=== PATIENT | female | born 1940 | race Caucasian/White ===

== ENCOUNTER 2016-08-07 09:31 | Inpatient (IN) | payer OTHER ==
[~2016-08-07] VITALS: Ht 154.9 cm; Wt 53.1 kg
--- NOTE | 2016-08-07 09:42 | ED DYSPNEA/ASTHMA COMPLAINT ---
History of Present Illness General Chief Complaint: Dyspnea (COPD, CHF, Other) Stated Complaint: SOB Source: patient, family Exam Limitations: no limitations Vital Signs & Intake/Output Vital Signs & Intake/Output Vital Signs Date Time Temp Pulse Resp B/P Pulse O2 O2 Flow FiO2 Ox Delivery Rate 08/07 1011 95 08/07 0944 95 Room Air 08/07 0936 96.7 111 28 182/84 93 Room Air Allergies Coded Allergies: No Known Drug Allergies (08/07/16) Triage Note: C/O SOB X X 4 DAYS, WITH PRODUCTIVE COUGH, (CLEAR). Triage Nurses Notes Reviewed? yes HPI: Patient presents with worsening shortness of breath, productive cough and dyspnea on exertion escalating over the past 4 days. Patient states she is coughing up white sputum. Positive chills but no fevers. Positive anorexia but no nausea or vomiting. No constipation or diarrhea. Patient does have COPD but she continues to smoke. He uses oxygen when she feels she needs it. Patient has been hospitalized for COPD in the past but was never been intubated or required going on BiPAP. Patient also states that over the past 2 days she has been having exertional chest heaviness. The heaviness is substernal. There is no radiation. At its worst is 7 out of 10. The heaviness is resolved with rest. Patient denies any orthopnea. Dr. Torres had recently started patient on a Medrol Dosepak however her symptoms continue to worsen. Past History Travel History Traveled to [place] past 21 day No Medical History Any Pertinent Medical History? see below for history Cardiovascular: CAD Respiratory: COPD Surgical History Surgical History: PTCA WITH STENT Psychosocial History What is your primary language Danish Tobacco Use: Current Daily Use Daily Tobacco Use Amount/Type: =< 4 Cigarettes daily ETOH Use: occasional use Illicit Drug Use: denies illicit drug use Family History Hx Contributory? No Review of Systems Review of Systems Constitutional: Reports: see HPI, chills. EENTM: Reports: no symptoms. Respiratory: Reports: see HPI, cough, short of breath, sputum production, wheezing. Cardiovascular: Reports: see HPI, chest pain. GI: Reports: no symptoms. Genitourinary: Reports: no symptoms. Musculoskeletal: Reports: no symptoms. Skin: Reports: no symptoms. Neurological/Psychological: Reports: no symptoms. Hematologic/Endocrine: Reports: no symptoms. Immunologic/Allergic: Reports: no symptoms. All Other Systems: Reviewed and Negative Physical Exam Physical Exam General Appearance: well developed/nourished, alert, awake, moderate distress Head: atraumatic, normal appearance Eyes: Bilateral: PERRL, EOMI. Ears, Nose, Throat: normal pharynx, normal ENT inspection, hearing grossly normal Neck: normal inspection, supple, full range of motion, NO JVD Respiratory: decreased breath sounds, rhonchi, wheezing, respiratory distress Cardiovascular: regular rate/rhythm, normal peripheral pulses Gastrointestinal: normal bowel sounds, soft, non-tender Extremities: normal inspection, normal capillary refill, no edema Neurologic/Psych: no motor/sensory deficits, awake, alert, oriented x 3, normal mood/affect Skin: intact, normal color, warm/dry Lymphatic: no anterior cervical phyllis Core Measures ACS in differential dx? Yes ASA ordered for poss ACS? Yes-ordered Severe Sepsis Present: No Septic Shock Present: No Progress Differential Diagnosis: asthma, AMI, bronchitis, CHF, COPD, pulmonary embolism, pneumonia, pneumothorax Plan of Care: Orders Procedure Date/time Status ARTERIAL BLOOD GAS (GEN) 08/07 0954 Complete Telemetry/Ostomy Nurse 08/07 0954 Active BLOOD CULTURE 08/07 0954 Active TROPONIN LEVEL 08/07 0954 Complete COMPREHENSIVE METABOLIC PANEL 08/07 0954 Complete CBC WITHOUT DIFFERENTIAL 08/07 953 Complete EKG 08/07 0952 Active Laboratory Tests 08/07/16 1010: pH 7.42, pCO2 38, pO2 169 H, HCO3 24, ABG O2 Sat (Measured) 99.0, P-50 (Temp Corrected) YES, Carboxyhemoglobin 0.8 L, O2 Concentration % NEB TX, Temperature 96.7 L, O2 Delivery Method 6L, Phlebotomy Draw Site RIGHT RADIAL 08/07/16 0955: Anion Gap 11, Estimated GFR 54 L, BUN/Creatinine Ratio 24.0, Glucose 105 H, Calcium 10.3 H, Total Bilirubin 0.6, AST 31, ALT 30, Alkaline Phosphatase 139 H, Troponin I 0.03, Total Protein 7.5, Albumin 4.6, Globulin 2.9, Albumin/ Globulin Ratio 1.6, CBC w Diff MAN DIFF ORDERED, RBC 5.09, MCV 84.1, MCH 27.6, RDW 16.0 H, MPV 7.6, Gran % 92.7 H, Lymphocytes % 4.6 L, Monocytes % 2.7, Eosinophils % 0, Basophils % 0 L, Absolute Granulocytes 14.8 H, Absolute Lymphocytes 0.7 L, Absolute Monocytes 0.4, Absolute Eosinophils 0, Absolute Basophils 0, Platelet Estimate VERIFIED BY SMEAR, Anisocytosis 1+, Stomatocytes 1+, PUBS MCHC 32.9 L Microbiology 08/07 1001 BLOOD: Blood Culture - RECD 08/07 0955 BLOOD: Blood Culture - RECD Diagnostic Imaging: Viewed by Me: Radiology Read. Discussed w/RAD: Radiology Read. CXR Impression: PATIENT: EROS BARNEY PRESENT AGE: 76 PATIENT ACCOUNT NO: [id number] : 38 LOCATION: [facility] [place] ORDERING PHYSICIAN: LUCIANA BRISCOE MD SERVICE DATE: 08/07/16 EXAM TYPE: RAD - XRY-PORTABLE CHEST XRAY EXAMINATION: XR PORTABLE CHEST CLINICAL INFORMATION: Shortness of breath. COMPARISON: Chest 12/17/2006 TECHNIQUE: Portable AP view of the chest was obtained. FINDINGS: Both lungs are hyperinflated without acute pneumonic process. The heart size and pulmonary vascularity is normal. There is old unhealed medial clavicle fracture with overriding fragments. IMPRESSION: Hyperinflated lungs without any acute pneumonic process. DICTATED BY: NOAH HARRIS MD DATE/TIME DICTATED:08/07/161031 QUARRY SUPERVISOR OPEN PIT:VICKI DATE/TIME TRANSCRIBED:08/07/161031 CONFIDENTIAL, DO NOT COPY WITHOUT APPROPRIATE AUTHORIZATION. <Electronically signed in Other Vendor System> SIGNED BY: NOAH HARRIS MD 08/07/16 1039 Initial ED EKG: NSR, no ST T wave changes Rhythm Strip: normal sinus rhythm Comments: D/W DR. TORRES AND DR. VERMA. Departure Departure Disposition: STILL A PATIENT Condition: Guarded Clinical Impression Primary Impression: COPD exacerbation Secondary Impressions: ACS (acute coronary syndrome) Referrals: USAMA NEWMAN DO (PCP/Family) Departure Forms: Customer Survey General Discharge Information Admission Note Spoke With: SHELLY THORNE M.D Documentation of Exam: Documentation of any treatments & extenuating circumstances including Concerns Regarding Discharge (functional status, medication knowledge or non-compliance, living conditions, etc.) that warrant an admission rather than observation: [PT HAS A COPD EXACERBATION AND HAS FAILED OUTPATIENT TREATMENT. PT WILL NEED TELE MONITORING AND SERIAL ENZYMES. CARDIOLOGY CONSULTAION, PULMONARY CONSULTATION, O2, ,MAY REQUIRE BIPAP.] Critical Care Note Critical Care Note Critical Care Time: non-applicable
[2016-08-07 10:10] LABS: ABSOLUTE BASOPHIL COUNT 0 /CUMM (0.0-0.2); ABSOLUTE EOSINOPHIL COUNT 0 /CUMM (0.0-0.7); ABSOLUTE GRANULOCYTE CT 14.8 /CUMM (1.4-6.5); ABSOLUTE LYMPH COUNT 0.7 /CUMM (1.2-3.4); ABSOLUTE MONOCYTE COUNT 0.4 /CUMM (0.10-0.60); BASOPHIL % 0 % (0.0-2.0); EOSINOPHIL % 0 % (0-5); GRANULOCYTE % 92.7 % (42.2-75.2); HEMATOCRIT 42.8 % (37-47); MEAN CORPUSCULAR HGB 27.6 PG (27.0-31.0); MEAN CORPUSCULAR HGB CONC 32.9 G/DL (33.0-37.0); MEAN CORPUSCULAR VOLUME 84.1 FL (81.0-99.0); MEAN PLATELET VOLUME 7.6 FL (7.4-10.4); PLATELET COUNT 322 /CUMM (130-400); RED BLOOD CELL CT 5.09 /CUMM (4.20-5.40); WHITE BLOOD CELL COUNT 15.9 /CUMM (4.8-10.8)
--- NOTE | 2016-08-07 10:39 | RADIOLOGY REPORT ---
EXAMINATION: XR PORTABLE CHEST CLINICAL INFORMATION: Shortness of breath. COMPARISON: Chest 12/17/2006 TECHNIQUE: Portable AP view of the chest was obtained. FINDINGS: Both lungs are hyperinflated without acute pneumonic process. The heart size and pulmonary vascularity is normal. There is old unhealed medial clavicle fracture with overriding fragments. IMPRESSION: Hyperinflated lungs without any acute pneumonic process.
--- NOTE | 2016-08-07 11:23 | History & Physical ---
DEEJAY LANDIS 08/07/16 1122: General Information and HPI MD Statement: I have seen and personally examined EROS BARNEY and documented this H&P. The patient is a 76 year old F who presented with a patient stated chief complaint of []. Source of Information: patient, old records Exam Limitations: no limitations History of Present Illness: This is a 76-year-old lady with past medical history significant for COPD on home oxygen, pancreatic cancer on Imatinib, CAD status post stent placement in 2007, nephrolithiasis, cholecystectomy who presents to the hospital with worsening of dyspnea since . According to the patient, she initially had mild sore throat which is now resolved; after that she started experiencing worsening of dyspnea. She reports productive cough, clear sputum, not changed from her baseline and wheezing. She contacted her supervisor loading's office (Dr. Torres) who recommended Medrol Dosepak. Patient had minimal relief of her symptoms with the medication and was sent to the hospital for further evaluation. She reports having mild chest discomfort after each cough, denies chest pain. She also denies any fever, chills, history of sick contact, headache, nausea, vomiting, change in bowel habits, urinary symptoms. The patient is an active smoker and smokes 2 cigarettes per day, drinks socially , denies illicit drug use. She has received influenza vaccine this year. Allergies/Medications Allergies: Coded Allergies: No Known Drug Allergies (08/07/16) Home Med list Albuterol Sulfate 2.5 MG/0.5 ML VIAL.NEB 1 PUFF PO DAILY COPD (Reported) Albuterol Sulfate (Proair Hfa) 90 MCG HFA.AER.AD 1 PUFF PO DAILY PRN COPD ( Reported) Clopidogrel Bisulfate (Clopidogrel) 75 MG TABLET 1 TAB PO DAILY HEART ( Reported) Ezetimibe (Zetia) 10 MG TABLET 1 TAB PO DAILY CHOLESTEROL (Reported) Fluticasone/Salmeterol (Advair 250-50 Diskus) 250 MCG-50 MCG/DOSE BLST.W.DEV 1 PUFF PO DAILY COPD (Reported) Imatinib Mesylate (Gleevec) 400 MG TABLET 1 TAB PO DAILY CANCER (Reported) TAKE WITH FOOD PER PT Tiotropium [place] (Spiriva) 18 MCG CAP.W.DEV 1 PUFF PO DAILY COPD (Reported) Past History Travel History Traveled to [place] past 21 day No Medical History Cardiovascular: CAD Respiratory: COPD Surgical History Surgical History: PTCA WITH STENT Past Family/Social History Psychosocial History ETOH Use: occasional use Illicit Drug Use: denies illicit drug use Review of Systems Review of Systems Constitutional: Denies: chills, diaphoresis, fever, malaise, weakness, unexplained weight loss. EENTM: Denies: see HPI. Cardiovascular: Denies: see HPI, edema, orthopena, palpitations, peripheral edema, syncope. Respiratory: Reports: cough, short of breath, sputum production, wheezing. Denies: hemoptysis, orthopnea, stridor. GI: Denies: abdominal pain, bloating, constipation, diarrhea, distention, bowel incontinence, melena, nausea, bloody stool, changes in stool, vomiting, steatorrhea. Genitourinary: Denies: discharge, dysuria, frequency, hematuria, hesitation, nocturia, pain, urgency. Musculoskeletal: Denies: back pain, gout, joint pain, joint swelling, muscle pain, muscle stiffness, neck pain. Skin: Reports: no symptoms. Neurological/Psychological: Reports: no symptoms. Hematologic/Endocrine: Reports: no symptoms. Denies: see HPI. Immunologic/Allergic: Reports: no symptoms. All Other Systems: Reviewed and Negative Exam & Diagnostic Data Last 24 Hrs of Vital Signs/I&O Vital Signs Date Time Temp Pulse Resp B/P Pulse O2 O2 Flow FiO2 Ox Delivery Rate 08/07 1210 99 156/86 08/07 1133 97.0 95 20 137/62 94 Room Air 08/07 1011 95 08/07 0944 95 Room Air 08/07 0936 96.7 111 28 182/84 93 Room Air Intake & Output 08/07 1600 08/07 0800 08/07 0000 Intake Total 0 Output Total Balance 0 Intake, Oral 0 Patient 117 lb Weight Physical Exam General Appearance Alert, Oriented X3, Cooperative, No Acute Distress Skin No Rashes, No Breakdown, No Significant Lesion HEENT Atraumatic, PERRLA, EOMI, Mucous Membr. moist/pink Neck Supple, No JVD, No thryomegaly, +2 Carotid Pulse wo Bruit, No LAD Lymphatic Axillary nl, Cervical nl Cardiovascular Regular Rate, Normal S1, Normal S2, No Murmurs Lungs expiratory wheezes bilaterally, decreased breath sounds Abdomen Normal Bowel Sounds, Soft, No Tenderness, No Hepatospenomegaly, No Masses Neurological Normal Speech, Strength at 5/5 X4 Ext, Normal Tone, Sensation Intact Extremities No Clubbing, No Cyanosis, No Edema, Normal Pulses, No Tenderness/ Swelling Vascular Pulses Symmetrical Last 24 Hrs of Labs/Devin: Laboratory Tests 08/07/16 1010: pH 7.42, pCO2 38, pO2 169 H, HCO3 24, ABG O2 Sat (Measured) 99.0, P-50 (Temp Corrected) YES, Carboxyhemoglobin 0.8 L, O2 Concentration % NEB TX, Temperature 96.7 L, O2 Delivery Method 6L, Phlebotomy Draw Site RIGHT RADIAL 08/07/16 0955: Anion Gap 11, Estimated GFR 54 L, BUN/Creatinine Ratio 24.0, Glucose 105 H, Calcium 10.3 H, Total Bilirubin 0.6, AST 31, ALT 30, Alkaline Phosphatase 139 H, Troponin I 0.03, Total Protein 7.5, Albumin 4.6, Globulin 2.9, Albumin/ Globulin Ratio 1.6, CBC w Diff MAN DIFF ORDERED, RBC 5.09, MCV 84.1, MCH 27.6, RDW 16.0 H, MPV 7.6, Gran % 92.7 H, Lymphocytes % 4.6 L, Monocytes % 2.7, Eosinophils % 0, Basophils % 0 L, Absolute Granulocytes 14.8 H, Absolute Lymphocytes 0.7 L, Absolute Monocytes 0.4, Absolute Eosinophils 0, Absolute Basophils 0, Platelet Estimate VERIFIED BY SMEAR, Anisocytosis 1+, Stomatocytes 1+, PUBS MCHC 32.9 L Microbiology 08/07 1148 NASOPHARYN: Influenza Virus A & B Rapid Smear - COMP 08/07 1001 BLOOD: Blood Culture - RECD 08/07 0955 BLOOD: Blood Culture - RECD Diagnostic Data EKG Results Sinus rhythm, rate 96, QTC 460 CXR Results FINDINGS: Both lungs are hyperinflated without acute pneumonic process. The heart size and pulmonary vascularity is normal. There is old unhealed medial clavicle fracture with overriding fragments. IMPRESSION: Hyperinflated lungs without any acute pneumonic process. Assessment/Plan Assessment: This is a 76-year-old lady with past medical history significant for COPD on home oxygen, pancreatic cancer on Imatinib, CAD status post stent placement in 2007, nephrolithiasis, cholecystectomy who presents to the hospital with worsening of dyspnea for 4 days. M Geeta were not improved with outpatient steroid therapy. Problem list/plan: #Dyspnea: This is a patient with a history of COPD on home oxygen, patient is afebrile, leukocytosis noted but most likely secondary to steroid use, patient reports productive cough with clear sputum which is not changed from her baseline. Physical exam is positive for significant expiratory wheezes. Chest x-ray is negative for any acute pathology. Clinical picture most compatible with COPD exacerbation. Blood cultures were obtained and she received IV ceftriaxone, IV azithromycin, and IV material prednisone on 125 mg in the ED. * Vitals per protocol * Sputum culture * Follow up on blood cultures * IV methyl prednisolone 40 mg, 3 Q8 hrs. * IV azithromycin 500 mg daily x5 dose. * TRC/Nebs * Pulmonary consult #Chest discomfort: Worsen after each cough. Chest pain-free at the time of physical exam. Troponin negative, EKG shows no acute changes. Received full dose aspirin in the ED. 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 * Consider cardiology consult if positive troponin or any change in the EKG #History of pancreatic cancer: Diagnosed 6 years ago. Followes as outpatient with Dr. Montes. On imatinib 400 mg daily. * Dr. Montes's service was notified of this admission * Continue imatinib 400 mg daily #Tobacco dependence: * Smoke cessation counseling done on admission. #DVT prophylaxis: * Subcutaneous heparin #CODE STATUS: * Full code #Cardiac diet As Ranked By This Provider Problem List: 1. COPD exacerbation 2. Pancreatic cancer Core Measures/Miscellaneous Acute Coronary Syndrome ACS Diagnosis: No Cerebrovascular Accident CVA/TIA Diagnosis: No Congestive Heart Failure CHF Diagnosis: No Venous Thromboembolism VTE Risk Factors: Age > 40, Smoking VTE Prophylaxis Ordered Inpt: [facility] prophylaxis d/t: No contraindications No VTE Pharm Prophylaxis d/t: No contraindications VTE Diagnosis: No VTE Type: NONE VTE Confirmed by (Test): NONE Severe Sepsis Severe Sepsis Present: No Septic Shock Septic Shock Present: No Miscellaneous Documentation Attending Case Discussed With: SHELLY THORNE M.D Primary Care Physician: USAMA NEWMAN DO Patient sees these Specialists Cardiology, oncology Level of Patient Care: Telemetry SHELLY THORNE MD 08/07/16 1406: Attending MD Review Statement Attending Statement Attending MD Statement: examined this patient, discuss w/resident/PA/OIL LABORATORY ANALYST, agreed w/resident/PA/OIL LABORATORY ANALYST, reviewed EMR data (avail), discussed with nursing, amended to note Attending Assessment/Plan: Patient seen and examined. I reviewed and agree with her history physical examination assessment and plan. Patient is being admitted for management of acute COPD exacerbation. Recommendations by the pulmonary service appreciated. She does not appear to have an underlying infectious process at this time. She did report history of chest pain which has now resolved. Her cardiac enzymes negative and she has no ischemic changes on EKG. However due to her history of coronary artery disease she will be placed on the telemetry service for cardiac monitoring and serial troponins to rule out acute coronary syndrome.
[2016-08-07] MEDS ORDERED: ZETIA10 M1 PO (11:39)
[2016-08-07] MEDS ORDERED: CLOPIDOGREL75 M1 PO (11:39)
[2016-08-07] MEDS ORDERED: ADVAIR 250-501 EACH PO (11:40)
[2016-08-07] MEDS ORDERED: GLEEVEC400 M1 PO (11:41)
[2016-08-07] MEDS ORDERED: ALBUTEROL2.5 MG/0.5 PO (11:41)
[2016-08-07] MEDS ORDERED: VITAMIN D1000 UNIT PO (11:42)
[2016-08-07] MEDS ORDERED: CEPHALEXIN500 M3 PO (11:42)
[2016-08-07] MEDS ORDERED: PROAIR HFA8.5 GM PO (11:43)
[2016-08-07] MEDS ORDERED: SPIRIVA18 MCG PO (11:43)
--- NOTE | 2016-08-07 13:48 | Cons- Pulmonary ---
General Information and HPI Consulting Request Date of Consult: 08/07/16 Requested By: Dr. Mueller Reason for Consult: COPD exacerbation/Bronchitis Source of Information: patient Exam Limitations: no limitations History of Present Illness: 76 year old woman. Recent URI. Began to have a sore throat last week and wheezing. Medrol dose regan did not relieve symptoms. Called office this am with dyspnea, wheezing without improvement after medrol. Sent to ED. In the ED she was noted to have dyspnea, afebrile, wbc 15.9 (on steroids). Received solumedrol and nebulized bronchodilators with improvement in symptoms. History of Severe Emphysema on PFTs. No fevers, no chills. No sick contacts. Intermittent wheezing. Current smoker with PMHx of COPD on Spiriva, Advair, ProAir for rescue and nebulizer therapy as needed, nocturnal O2. Previously was under the care of Dr. Lizama in [place] for about 5 years. Past Hx. 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 She is a smoker for decades but recently she cut down and her smoking habits vary weekly up to 1/2 PPD. Patient is compliant with her current medications. Uses appropriate technique. Recently recovering from a COPD exacerbation. Used Levaquin & Prednisone. Allergies/Medications Allergies: Coded Allergies: No Known Drug Allergies (08/07/16) Home Med List: Albuterol Sulfate 2.5 MG/0.5 ML VIAL.NEB 1 PUFF PO DAILY COPD (Reported) Albuterol Sulfate (Proair Hfa) 90 MCG HFA.AER.AD 1 PUFF PO DAILY PRN COPD ( Reported) Clopidogrel Bisulfate (Clopidogrel) 75 MG TABLET 1 TAB PO DAILY HEART ( Reported) Ezetimibe (Zetia) 10 MG TABLET 1 TAB PO DAILY CHOLESTEROL (Reported) Fluticasone/Salmeterol (Advair 250-50 Diskus) 250 MCG-50 MCG/DOSE BLST.W.DEV 1 PUFF PO DAILY COPD (Reported) Imatinib Mesylate (Gleevec) 400 MG TABLET 1 TAB PO DAILY CANCER (Reported) TAKE WITH FOOD PER PT Tiotropium [place] (Spiriva) 18 MCG CAP.W.DEV 1 PUFF PO DAILY COPD (Reported) Current Medications: Current Medications Sig/Mitch Start time Last Medication Dose Route Stop Time Status Admin Albuterol Sulfate 3 ML ONCE ONE 08/07 1000 DC 08/07 INH 08/07 1001 1010 Aspirin 325 MG ONCE ONE 08/07 1030 DC 08/07 PO 08/07 1031 1023 Aspirin 0 .STK-MED ONE 08/07 1025 DC PO Azithromycin 500 MG DAILY 08/08 1000 AC Dextrose/Water 250 ML IV Azithromycin 500 MG ONCE ONE 08/07 1000 DC 08/07 Dextrose/Water 250 ML IV 08/07 1059 1020 Ceftriaxone Sodium 0 .STK-MED ONE 08/07 1008 DC .ROUTE Ceftriaxone Sodium 1,000 MG ONCE ONE 08/07 1000 DC 08/07 IV 08/07 1001 1017 Clopidogrel Bisulfate 75 MG DAILY 08/07 1213 AC PO Ezetimibe 10 MG DAILY 08/07 1213 AC PO Ipratropium [place] 2.5 ML ONCE ONE 08/07 1000 DC 08/07 INH 08/07 1001 1010 Methylprednisolone 40 MG Q8 08/07 1400 AC IV Methylprednisolone 0 .STK-MED ONE 08/07 1007 DC .ROUTE Methylprednisolone 125 MG ONCE ONE 08/07 1000 DC 08/07 IV 08/07 1001 1017 Non-Formulary 0 SEE ADMIN CRITERIA 08/07 1215 UNVr Medication ANY Review of Systems Comments 18 point Review of Systems performed. Positive and negative pertinent findings are deliniated in the HPI. Otherwise the ROS is negative. 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 Home Services at Home: Oxygen Smoking Status: Current Everyday Smoker ETOH Use: occasional use Illicit Drug Use: denies illicit drug use Exam & Diagnostic Data Last 24 Hrs of Vital Signs/I&O Vital Signs Date Time Temp Pulse Resp B/P Pulse O2 O2 Flow FiO2 Ox Delivery Rate 08/07 1210 99 156/86 08/07 1133 97.0 95 20 137/62 94 Room Air 08/07 1011 95 08/07 0944 95 Room Air 08/07 0936 96.7 111 28 182/84 93 Room Air Intake & Output 08/07 1600 08/07 0800 08/07 0000 Intake Total 0 Output Total Balance 0 Intake, Oral 0 Patient 117 lb Weight Physical Exam Other Physical Findings: General - Alert, awake and oriented HEENT - normocephalic, atraumatic, no thrush Cardiovascular - S1, S2 Lungs - bilateral wheezing, more on right Abdomen - soft, bowel sounds positive, no tenderness Extremities - without edema or cyanosis Last 48 Hrs of Labs/Devin: Laboratory Tests 08/07/16 1010: pH 7.42, pCO2 38, pO2 169 H, HCO3 24, ABG O2 Sat (Measured) 99.0, P-50 (Temp Corrected) YES, Carboxyhemoglobin 0.8 L, O2 Concentration % NEB TX, Temperature 96.7 L, O2 Delivery Method 6L, Phlebotomy Draw Site RIGHT RADIAL 08/07/16 0955: Anion Gap 11, Estimated GFR 54 L, BUN/Creatinine Ratio 24.0, Glucose 105 H, Calcium 10.3 H, Total Bilirubin 0.6, AST 31, ALT 30, Alkaline Phosphatase 139 H, Troponin I 0.03, Total Protein 7.5, Albumin 4.6, Globulin 2.9, Albumin/ Globulin Ratio 1.6, CBC w Diff MAN DIFF ORDERED, RBC 5.09, MCV 84.1, MCH 27.6, RDW 16.0 H, MPV 7.6, Gran % 92.7 H, Lymphocytes % 4.6 L, Monocytes % 2.7, Eosinophils % 0, Basophils % 0 L, Absolute Granulocytes 14.8 H, Absolute Lymphocytes 0.7 L, Absolute Monocytes 0.4, Absolute Eosinophils 0, Absolute Basophils 0, Platelet Estimate VERIFIED BY SMEAR, Anisocytosis 1+, Stomatocytes 1+, PUBS MCHC 32.9 L Microbiology 08/07 1148 NASOPHARYN: Influenza Virus A & B Rapid Smear - COMP Assessment/Plan Impression/Plan: 76 year old woman. Recent URI. Began to have a sore throat last week and wheezing. Medrol dose regan did not relieve symptoms. Called office this am with dyspnea, wheezing without improvement after medrol. Sent to ED. In the ED she was noted to have dyspnea, afebrile, wbc 15.9 (on steroids). Received solumedrol and nebulized bronchodilators with improvement in symptoms. History of Severe Emphysema on PFTs. No fevers, no chills. No sick contacts. Intermittent wheezing. Current smoker with PMHx of COPD on Spiriva, Advair, ProAir for rescue and nebulizer therapy as needed, nocturnal O2. Previously was under the care of Dr. Lizama in [place] for about 5 years. Past Hx. 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 She is a smoker for decades but recently she cut down and her smoking habits vary weekly up to 1/2 PPD. Patient is compliant with her current medications. Uses appropriate technique. Recently recovering from a COPD exacerbation. Used Levaquin & Prednisone. CXR with hyperinflated lungs. Impression 76 year old woman -Severe COPD, nocturnal o2 at home, air trapping/emphysema - now with acute exacerbation of COPD secondary to bronchitis which is likely viral in etiology -tobacco dependence Plan -TRC/Nebs -Solumedrol 40mg IV q8h -5 day course of zithromax, d/c ceftriaxone -monitor o2 sat -smoking cessation - counseled -upon discharge would be useful to refer to COPD wellness clinic -At home on spiriva and advair -can use DUONEBS here and not administer inhalers until discharged -DVT prophylaxis at all times Consult Acknowledgment - Thank you for your consult request.
--- NOTE | 2016-08-07 14:06 | Admission Certification ---
Admission Certification Certification Statement - As attending physician, I certify that at the time of - admission, based on clinical presentation, severity of - symptoms, need for further diagnostic testing and - therapeutic interventions, and risk of adverse outcomes - without in-hospital treatment, in my clinical assessment, - this patient requires an acute hospital stay for a minimum - of two nights or longer. I have also considered psychsocial - factors such as support system, advanced age, financial - issues, cognitive issues, and failed out-patient treatments, - past re-admission history, safety of patient, and lack of - compliance as applicable. Specific rationale supporting this admission is: Inpatient admission is required for administration of intravenous steroid therapy and further workup of her chest pain.
[2016-08-07 17:10] VITALS: BP 140/80
--- NOTE | 2016-08-07 20:39 | Cons- Cardiology ---
General Information and HPI Consulting Request Date of Consult: 08/07/16 Requested By: SHELLY THORNE M.D Reason for Consult: Shortness of breath. Source of Information: patient Exam Limitations: poor historian History of Present Illness: Mrs. 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 The chest tightness is mild, nonradiating, and nonexertional and she thinks is related to her recent coughing, as it is worse when she coughs. She has not noted any discomfort with exertion. She denies any history of valvular, dysrhythmic/conduction disease, or cardiomyopathy. She also denies any history of hypertension, diabetes mellitus, or family history of premature atherosclerotic disease. She is typically followed by cardiology (Krishna Mcnair M.D.), through [facility] and thinks she may have had an echocardiogram and stress testing performed approximately a year and a half ago that were unremarkable. Allergies/Medications Allergies: Coded Allergies: No Known Drug Allergies (08/07/16) Home Med List: Albuterol Sulfate 2.5 MG/0.5 ML VIAL.NEB 1 PUFF PO DAILY COPD (Reported) Albuterol Sulfate (Proair Hfa) 90 MCG HFA.AER.AD 1 PUFF PO DAILY PRN COPD ( Reported) Clopidogrel Bisulfate (Clopidogrel) 75 MG TABLET 1 TAB PO DAILY HEART ( Reported) Ezetimibe (Zetia) 10 MG TABLET 1 TAB PO DAILY CHOLESTEROL (Reported) Fluticasone/Salmeterol (Advair 250-50 Diskus) 250 MCG-50 MCG/DOSE BLST.W.DEV 1 PUFF PO DAILY COPD (Reported) Imatinib Mesylate (Gleevec) 400 MG TABLET 1 TAB PO DAILY CANCER (Reported) TAKE WITH FOOD PER PT Prednisone 10 MG TABLET 1 TAB PO SI COPD Please take 6 tablets (60 mg) for 3 days Then 5 tablets (50 mg) for the next 3 days Then 4 tablets (40 mg) for the next 3 days Then 3 tablets (30 mg) for the next 3 days Then 2 tablets (20 mg) for the next 3 days Then 1 tablet (10 mg) for the next 3 days Then stop Tiotropium [place] (Spiriva) 18 MCG CAP.W.DEV 1 PUFF PO DAILY COPD (Reported) Review of Systems Review of Systems: A 14 point system review was obtained and was noncontributory, other than for the fact that she has decreased vision with bilateral cataracts left greater than right, decreased auditory acuity in her left ear, nephrolithiasis, and arthritis. 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 Home Services at Home: Oxygen Smoking Status: Current Everyday Smoker ETOH Use: occasional use Illicit Drug Use: denies illicit drug use Exam & Diagnostic Data Vital Signs and I&O Vital Signs Date Time Temp Pulse Resp B/P Pulse O2 O2 Flow FiO2 Ox Delivery Rate 08/07 1710 97.7 101 20 140/80 91 Room Air 08/07 1210 99 156/86 08/07 1133 97.0 95 20 137/62 94 Room Air 08/07 1011 95 08/07 0944 95 Room Air 08/07 0936 96.7 111 28 182/84 93 Room Air Intake & Output 08/07 1600 08/07 0800 08/07 0000 08/06 1600 08/06 0808/06 0000 Intake Total 0 Output Total Balance 0 Intake, Oral 0 Patient 117 lb Weight Physical Exam: Well-developed, well-nourished elderly female in no acute distress with nasal oxygen in place. Vital signs: See above. HEENT: Normocephalic, atraumatic, EOMI, slightly tremulous membranes. Neck: No JVD, no bruits. Lungs: Decreased breath sounds with bilateral wheezing and occasional rhonchi. Heart: S1, S2 with no murmur, gallop, or rub appreciated. PMI fifth ICS at [facility]. Abdomen: Soft, nontender, positive bowel sounds. Extremities: No edema. Labs/Devin Results: Laboratory Tests 08/07 08/07 1730 1010 Blood Gas pH (7.35 - 7.45 PH) 7.42 pCO2 (35 - 45 TORR) 38 pO2 (80 - 100 TORR) 169 H HCO3 (21 - 28 MEQ/L) 24 ABG O2 Sat (Measured) (>96.0 %) 99.0 P-50 (Temp Corrected) YES Carboxyhemoglobin (1.5 - 5.0 %) 0.8 L O2 Concentration % NEB TX Temperature (97.0 - 100.0 FARH) 96.7 L O2 Delivery Method 6L Chemistry Troponin I (< 0.11 ng/ml) 0.03 Miscellaneous Phlebotomy Draw Site RIGHT RADIAL 08/07 0955 Chemistry Sodium (137 - 145 mmol/L) 143 Potassium (3.5 - 5.1 mmol/L) 4.6 Chloride (98 - 107 mmol/L) 106 Carbon Dioxide (22 - 30 mmol/L) 25 Anion Gap (5 - 16) 11 BUN (7 - 17 mg/dL) 24 H Creatinine (0.5 - 1.0 mg/dL) 1.0 Estimated GFR (>60 ml/min) 54 L BUN/Creatinine Ratio (7 - 25 %) 24.0 Glucose (65 - 99 mg/dL) 105 H Calcium (8.4 - 10.2 mg/dL) 10.3 H Total Bilirubin (0.2 - 1.3 mg/dL) 0.6 AST (14 - 36 U/L) 31 ALT (9 - 52 U/L) 30 Alkaline Phosphatase (<127 U/L) 139 H Troponin I (< 0.11 ng/ml) 0.03 Total Protein (6.3 - 8.2 g/dL) 7.5 Albumin (3.5 - 5.0 g/dL) 4.6 Globulin (1.9 - 4.2 gm/dL) 2.9 Albumin/Globulin Ratio (1.1 - 2.2 %) 1.6 Hematology CBC w Diff MAN DIFF ORDERED WBC (4.8 - 10.8 /CUMM) 15.9 H RBC (4.20 - 5.40 /CUMM) 5.09 Hgb (12.0 - 16.0 G/DL) 14.1 Hct (37 - 47 %) 42.8 MCV (81.0 - 99.0 FL) 84.1 MCH (27.0 - 31.0 PG) 27.6 RDW (11.5 - 14.5 %) 16.0 H Plt Count (130 - 400 /CUMM) 322 MPV (7.4 - 10.4 FL) 7.6 Gran % (42.2 - 75.2 %) 92.7 H Lymphocytes % (20.5 - 51.1 %) 4.6 L Monocytes % (1.7 - 9.3 %) 2.7 Eosinophils % (0 - 5 %) 0 Basophils % (0.0 - 2.0 %) 0 L Absolute Granulocytes (1.4 - 6.5 /CUMM) 14.8 H Absolute Lymphocytes (1.2 - 3.4 /CUMM) 0.7 L Absolute Monocytes (0.10 - 0.60 /CUMM) 0.4 Absolute Eosinophils (0.0 - 0.7 /CUMM) 0 Absolute Basophils (0.0 - 0.2 /CUMM) 0 Platelet Estimate (ADEQUATE) VERIFIED BY SMEAR Anisocytosis 1+ Stomatocytes 1+ PUBS MCHC (33.0 - 37.0 G/DL) 32.9 L Diagnostic Data EKG Results (08/07/2016): Sinus rhythm and within normal limits. No significant change from tracing performed earlier today. CXR Results (08/07/2016): Both lungs are hyperinflated without acute pneumonic process. The heart size and pulmonary vascularity is normal. There is old unhealed medial clavicle fracture with overriding fragments. Assessment/Plan Assessment/Plan Mrs. Cassidy is an elderly white female with a long-standing history of tobacco use and COPD with previous acute exacerbations who presents with similar symptoms to previous exacerbations, as well as, known coronary artery disease for which she previously had PCI/stenting. While the chest "heaviness" she has been experiencing is of some concern, it has atypical features in that it is nonexertional and is exacerbated by coughing. Recommendations: * Telemetry admission, follow-up electrocardiogram, follow-up troponins. * Given the atypical nature of her chest discomfort would not initiate IV heparin or other new cardiac medications at this time. * Schedule an echocardiogram to assess her left ventricular systolic/diastolic function and help exclude regional wall motion abnormalities, assess right ventricular function, assess pulmonary artery pressure, etc. * Oxygen, TRC, antimicrobial therapy, steroids, etc. as per pulmonary medicine. * Given her vague history of thoracic and abdominal aortic aneurysms would consider CT of the chest, abdomen/pelvis. * Would continue her on her outpatient cardiac regimen (clopidogrel, ezetimibe). * It is not clear why she is not on beta lyle, statin, HERON inhibitor or angiotensin receptor lyle therapy. One would suspect that she is not on beta lyle therapy secondary to her pulmonary disease. * Prophylaxis to prevent deep venous thrombosis. Further recommendations will follow, Thank you. Consult Acknowledgment - Thank you for your consult request.
[2016-08-08 00:47] VITALS: BP 160/90
--- NOTE | 2016-08-08 06:36 | PN- Housestaff ---
SIGIFREDO KAUR,PIA 08/08/16 0636: Subjective Follow-up For: copd exacerbation Tele-Events Since Last Visit: nsr 78-91 Subjective: pt seen this morning, she reports not being able to sleep last night due to dyspnea. she is currently on 2LO2. she still has cough but unable to bring up her sputum. chest heaviness has resolved. ekg and trops negative X 3. ordered echo as per cardio recc. will evaluate if pt needs ct chest/abd/pelvis today. she reports hot flashes when she is getting infused with solumedrol. She is still wheezing despite breathing tx. Review of Systems Constitutional: Reports: see HPI. EENTM: Denies: visual changes. Cardiovascular: Denies: chest pain. Respiratory: Reports: cough, short of breath, sputum production. Gastrointestinal: Denies: abdominal pain. Genitourinary: Denies: dysuria. Objective Last 24 Hrs of Vital Signs/I&O Vital Signs Date Time Temp Pulse Resp B/P Pulse O2 O2 Flow FiO2 Ox Delivery Rate 08/08 0838 96 Nasal 2.0L Cannula 08/08 0833 97.5 88 20 138/82 97 Nasal 2.0L Cannula 08/08 0514 92 Nasal 2.0L Cannula 08/08 0047 98.3 86 20 160/90 98 Nasal 2.0L Cannula 08/08 0000 Nasal 2.0L Cannula 08/07 1710 97.7 101 20 140/80 91 Room Air 08/07 1600 95 Room Air 08/07 1210 99 156/86 08/07 1133 97.0 95 20 137/62 94 Room Air 08/07 1011 95 Intake & Output 08/08 1600 08/08 0800 08/08 0000 Intake Total 240 400 Output Total Balance 240 400 Intake, Oral 240 400 Physical Exam General Appearance: Alert, Oriented X3, Cooperative Skin: No Significant Lesion HEENT: Atraumatic Neck: Supple Cardiovascular: Regular Rate, Normal S1, Normal S2, No Murmurs, Gallops, Rubs Lungs: diffuse insp and exp wheezing Abdomen: Normal Bowel Sounds, Soft, No Tenderness Neurological: Normal Speech Extremities: No Edema Vascular: Normal Pulses Current Medications: Current Medications Sig/Mitch Start time Last Medication Dose Route Stop Time Status Admin Albuterol Sulfate 3 ML EVERY 4 HRS/AWAKE 08/08 0845 AC 08/08 INH 0836 Albuterol Sulfate 3 ML ONCE ONE 08/08 0515 DC 08/08 INH 08/08 0516 0514 Albuterol Sulfate 2 PUF Q4 PRN 08/07 1815 DC INH Albuterol Sulfate 3 ML ONCE ONE 08/07 1000 DC 08/07 INH 08/07 1001 1010 Aspirin 325 MG ONCE ONE 08/07 1030 DC 08/07 PO 08/07 1031 1023 Aspirin 0 .STK-MED ONE 08/07 1025 DC PO Azithromycin 500 MG DAILY 08/08 1000 AC 08/08 Dextrose/Water 250 ML IV 0910 Azithromycin 500 MG ONCE ONE 08/07 1000 DC 08/07 Dextrose/Water 250 ML IV 08/07 1059 1020 Ceftriaxone Sodium 0 .STK-MED ONE 08/07 1008 DC .ROUTE Ceftriaxone Sodium 1,000 MG ONCE ONE 08/07 1000 DC 08/07 IV 08/07 1001 1017 Clopidogrel Bisulfate 75 MG DAILY 08/07 1213 AC 08/08 PO 0910 Ezetimibe 10 MG DAILY 08/07 1213 AC 08/08 PO 0910 Heparin Sodium 5,000 UNIT Q8 08/07 1405 AC 08/08 (Porcine) SC 0522 Ipratropium [place] 2.5 ML EVERY 4 HRS/AWAKE 08/08 0845 AC 08/08 INH 0836 Ipratropium [place] 2.5 ML ONCE ONE 08/07 1000 DC 08/07 INH 08/07 1001 1010 Methylprednisolone 40 MG Q8 08/07 1400 AC 08/08 IV 0522 Methylprednisolone 0 .STK-MED ONE 08/07 1007 DC .ROUTE Methylprednisolone 125 MG ONCE ONE 08/07 1000 DC 08/07 IV 08/07 1001 1017 Last 24 Hrs of Lab/Devin Results Last 24 Hrs of Labs/Mics: Laboratory Tests 08/07/16 2250: Troponin I 0.04 08/07/16 1730: Troponin I 0.03 08/07/16 1010: pH 7.42, pCO2 38, pO2 169 H, HCO3 24, ABG O2 Sat (Measured) 99.0, P-50 (Temp Corrected) YES, Carboxyhemoglobin 0.8 L, O2 Concentration % NEB TX, Temperature 96.7 L, O2 Delivery Method 6L, Phlebotomy Draw Site RIGHT RADIAL 08/07/16 0955: Anion Gap 11, Estimated GFR 54 L, BUN/Creatinine Ratio 24.0, Glucose 105 H, Calcium 10.3 H, Total Bilirubin 0.6, AST 31, ALT 30, Alkaline Phosphatase 139 H, Troponin I 0.03, Total Protein 7.5, Albumin 4.6, Globulin 2.9, Albumin/ Globulin Ratio 1.6, CBC w Diff MAN DIFF ORDERED, RBC 5.09, MCV 84.1, MCH 27.6, RDW 16.0 H, MPV 7.6, Gran % 92.7 H, Lymphocytes % 4.6 L, Monocytes % 2.7, Eosinophils % 0, Basophils % 0 L, Absolute Granulocytes 14.8 H, Absolute Lymphocytes 0.7 L, Absolute Monocytes 0.4, Absolute Eosinophils 0, Absolute Basophils 0, Platelet Estimate VERIFIED BY SMEAR, Anisocytosis 1+, Stomatocytes 1+, PUBS MCHC 32.9 L Microbiology 08/08 919 LOWER RESP: Respiratory Culture - RECD 08/08 919 LOWER RESP: Gram Stain - RECD 08/07 1148 NASOPHARYN: Influenza Virus A & B Rapid Smear - COMP 08/07 1001 BLOOD: Blood Culture - RECD 08/07 0955 BLOOD: Blood Culture - RECD Assessment/Plan Assessment: This is a 76-year-old lady with past medical history significant for COPD on home oxygen, pancreatic cancer on Imatinib, CAD status post stent placement in 2007, nephrolithiasis, cholecystectomy who presents to the hospital with worsening of dyspnea for 4 days, that did not improved with outpatient steroid therapy. Problem list: # COPD exacerbation # Chest discomfort (heaviness) resolved # Dyspnea most likely secondary to COPD exacerbation: This is a patient with a history of COPD on home oxygen (2L only on exertion and if needed), patient is afebrile, leukocytosis noted but most likely secondary to steroid use, patient reports productive cough with clear sputum which is not changed from her baseline. Physical exam is positive for significant expiratory wheezes. Chest x-ray is negative for any acute pathology. Clinical picture most compatible with COPD exacerbation. Blood cultures were obtained and she received IV ceftriaxone, IV azithromycin, and IV material prednisone on 125 mg in the ED. * Vitals per protocol * Follow Sputum culture * Follow up on blood cultures * IV methyl prednisolone 40 mg, 3 Q8 hrs --> changed to q12 * IV azithromycin 500 mg daily x5 dose. * TRC/Nebs * Pulmonary consult with Dr. Melissa * TRC/nebs * OP COPD clinic f/u # Chest discomfort (heaviness) resolved: Worsen after each cough. Chest pain- free at the time of physical exam. Troponin negative, EKG shows no acute changes. Received full dose aspirin in the ED. * Serial EKG and trops negative * Cardiology, Dr. Winston consulted * Follow up echocardiogram * Consider CT chest/abd/pelvis for aneurysm if chest pain recurs * convalescent sitter discontinued * She is on Plavix only as outpatient, she takes aspirin intermittently * Continue aspirin * Followed up with PCP, she did not get statin due to hx of myositis,myalgia?, she wasn't started on ACEI or BB because her BP was borderline # Insomnia * Melatonin at bedtime # History of pancreatic cancer: Diagnosed 6 years ago. Follows as outpatient with Dr. Montes. On imatinib 400 mg daily. * Dr. Montes's service was notified of this admission * Continue imatinib 400 mg daily # Tobacco dependence - Smoke cessation counseling done on admission. # Continue home meds * Ezetimibe Diet: heart healthy DVT prophylaxis: Subcutaneous heparin and alps Full code Problem List: 1. COPD exacerbation Pain Ratin Pain Location: none Pain Goal: Remain pain free Pain Plan: none Tomorrow's Labs & Rationales: cbc to trend leukocytosis DVT/Prophylaxis: mechanical, pharmacological FADUMO KAUR,SHELLY 08/08/16 1353: Attending MD Review Statement Attending Statement Attending MD Statement: examined this patient, discuss w/resident/PA/THIRD MILLER, agreed w/resident/PA/THIRD MILLER, reviewed EMR data (avail), discussed with nursing, discussed with case mgmt, amended to note Attending Assessment/Plan: Patient seen and examined. She was observed sitting comfortably and not in acute distress. She however continues complain of dyspnea particularly with exertion. She does not feel significantly improved. She is fortunately afebrile hemodynamically stable. She saturating 96 units to percent on 2 L of oxygen. On examination she does have diffuse wheezing bilaterally. She has no jugular venous distention. She has no peripheral edema. Overnight on telemetry she had no events other than an episode of tachycardia probably during exertion. Recommendations: -Continue bronchodilator therapy. -Taper steroids slowly per recommendations of the pulmonary service. -Continue azithromycin only for anti-inflammatory purposes. -Follow-up echocardiogram. -Acute coronary syndrome was ruled out. Discontinue telemetry and downgrade patient to the general medical floor. -Patient has CT of the chest suggestive of aortic aneurysm back in June. She did present with chest pain. Patient clearly reports that the pain was brought on mostly by coughing. She denies any further chest pain. She does admit to repeated coughing. If symptoms of chest pain reoccurs we'll obtain chest CT for further evaluation of her aortic aneurysm. Follow-up with primary care provider to determine why patient is on simvastatin, beta lyle and HERON inhibitor therapy
[2016-08-08 08:33] VITALS: BP 138/82
--- NOTE | 2016-08-08 10:33 | PN- Pulmonary ---
Subjective HPI/Critical Care Issues: pt seen and examined seems to be feeling better at rest, but not with exertion pending echo 96% on 2LNC no nvdc Objective Current Medications: Current Medications Sig/Mitch Start time Last Medication Dose Route Stop Time Status Admin Albuterol Sulfate 3 ML EVERY 4 HRS/AWAKE 08/08 0845 AC 08/08 INH 0836 Albuterol Sulfate 3 ML ONCE ONE 08/08 0515 DC 08/08 INH 08/08 0516 0514 Albuterol Sulfate 2 PUF Q4 PRN 08/07 1815 DC INH Aspirin 325 MG ONCE ONE 08/07 1030 DC 08/07 PO 08/07 1031 1023 Azithromycin 500 MG DAILY 08/08 1000 AC 08/08 Dextrose/Water 250 ML IV 0910 Azithromycin 500 MG ONCE ONE 08/07 1000 DC 08/07 Dextrose/Water 250 ML IV 08/07 1059 1020 Clopidogrel Bisulfate 75 MG DAILY 08/07 1213 AC 08/08 PO 0910 Ezetimibe 10 MG DAILY 08/07 1213 AC 08/08 PO 0910 Heparin Sodium 5,000 UNIT Q8 08/07 1405 AC 08/08 (Porcine) SC 0522 Ipratropium [place] 2.5 ML EVERY 4 HRS/AWAKE 08/08 0845 AC 08/08 INH 0836 Methylprednisolone 40 MG Q8 08/07 1400 AC 08/08 IV 0522 Vital Signs & I&O Last 24 Hrs of Vitals and I&O: Vital Signs Date Time Temp Pulse Resp B/P Pulse O2 O2 Flow FiO2 Ox Delivery Rate 08/08 0944 Nasal 2.0L Cannula 08/08 0838 96 Nasal 2.0L Cannula 08/08 0833 97.5 88 20 138/82 97 Nasal 2.0L Cannula 08/08 0514 92 Nasal 2.0L Cannula 08/08 0047 98.3 86 20 160/90 98 Nasal 2.0L Cannula 08/08 0000 Nasal 2.0L Cannula 08/07 1710 97.7 101 20 140/80 91 Room Air 08/07 1600 95 Room Air 08/07 1210 99 156/86 08/07 1133 97.0 95 20 137/62 94 Room Air Intake & Output 08/08 1600 08/08 0800 08/08 0000 Intake Total 240 400 Output Total Balance 240 400 Intake, Oral 240 400 Exam Other Physical Findings: General - Alert, awake and oriented HEENT - normocephalic, atraumatic, no thrush Cardiovascular - S1, S2 Lungs - bilateral wheezing, more on right Abdomen - soft, bowel sounds positive, no tenderness Extremities - without edema or cyanosis Results Last 24 Hrs of Lab Results: Laboratory Tests 08/07/16 2250: Troponin I 0.04 08/07/16 1730: Troponin I 0.03 Impression/Plan Impression/Plan Impression/Plan: Impression 76 year old woman -Severe COPD, nocturnal o2 at home, air trapping/emphysema - now with acute exacerbation of COPD secondary to bronchitis which is likely viral in etiology -tobacco dependence Plan -TRC/Nebs -REDUCE Solumedrol 40mg IV q12h -5 day course of zithromax, d/c ceftriaxone -check ECHO -monitor o2 sat -smoking cessation - counseled -upon discharge would be useful to refer to COPD wellness clinic -At home on spiriva and advair -can use DUONEBS here and not administer inhalers until discharged -DVT prophylaxis at all times
[2016-08-08 15:40] VITALS: BP 148/80
[2016-08-08 22:00] VITALS: BP 164/60
--- NOTE | 2016-08-09 06:56 | PN- Housestaff ---
See Addendum Subjective Follow-up For: copd exacerbation Subjective: When pt was seen this morning at 7am, she was asleep and when I came back at 815am, she was sitting at the edge of the bed eating breakfast comfortably. She requested the oxygen to be maintained at 2L. Apparently it was turned down to 1L last night. She continues to have dyspnea on mild exertion (walking short distance). She has hx of cramps, for which statin wasn't started as per her PCP. BB and ACEI also not started due to borderline low BP. Her BP in the hospital has been systolic 137-164/diastolic 62-90. It would not be unreasonable to start ACEI (BB not ideal due to her COPD).Pt instructed to f/u Dr. Krishna Daniel (her communications maintainer in [place]). pt was given aspirin yesterday (in addition to plavix) and she bled from the heparin sc injection site, with some blood on the bedsheet that she noticed this morning. aspirin stopped. plavix continued, will follow up this am h/h. She had better sleep last night with the melatonin. She wants to go home today. Review of Systems Constitutional: Denies: chills, fever. EENTM: Denies: visual changes. Cardiovascular: Denies: chest pain. Respiratory: Reports: cough, short of breath, sputum production. Gastrointestinal: Denies: abdominal pain. Objective Last 24 Hrs of Vital Signs/I&O Vital Signs Date Time Temp Pulse Resp B/P Pulse O2 O2 Flow FiO2 Ox Delivery Rate 08/09 0000 Room Air 08/08 2200 97.2 90 18 164/60 97 Room Air 08/08 1620 97 Nasal 2.0L Cannula 08/08 1600 97 Nasal 2.0L Cannula 08/08 1540 97.5 95 20 148/80 96 Nasal 2.0L Cannula 08/08 0944 Nasal 2.0L Cannula 08/08 0838 96 Nasal 2.0L Cannula 08/08 0833 97.5 88 20 138/82 97 Nasal 2.0L Cannula Intake & Output 08/09 1600 08/09 0800 08/09 0000 Intake Total 100 470 Output Total Balance 100 470 Intake, IV 20 Intake, Oral 100 450 Number 0 Bowel Movements Physical Exam General Appearance: Alert, Oriented X3, Cooperative, No Acute Distress HEENT: Atraumatic Cardiovascular: Regular Rate, Normal S1, Normal S2 Lungs: mild exp wheezing on the right side Abdomen: Normal Bowel Sounds, Soft, No Tenderness Extremities: No Edema Current Medications: Current Medications Sig/Mitch Start time Last Medication Dose Route Stop Time Status Admin Albuterol Sulfate 3 ML EVERY 4 HRS/AWAKE 08/08 0845 AC 08/08 INH 2050 Aspirin 81 MG DAILY 08/08 1530 DC 08/08 PO 2011 Azithromycin 500 MG DAILY 08/08 1000 AC 08/08 Dextrose/Water 250 ML IV 0910 Clopidogrel Bisulfate 75 MG DAILY 08/07 1213 AC 08/08 PO 0910 Ezetimibe 10 MG DAILY 08/07 1213 AC 08/08 PO 0910 Heparin Sodium 5,000 UNIT Q8 08/07 1405 AC 08/09 (Porcine) SC 0505 Ipratropium [place] 2.5 ML EVERY 4 HRS/AWAKE 08/08 0845 AC 08/08 INH 2050 Melatonin 5 MG AT BEDTIME 08/08 2200 AC 08/08 PO 2153 Methylprednisolone 40 MG Q12 08/08 2000 AC 08/08 IV 2012 Methylprednisolone 40 MG Q8 08/07 1400 DC 08/08 IV 0522 Last 24 Hrs of Lab/Devin Results Last 24 Hrs of Labs/Mics: Laboratory Tests 08/09/16 0725: CBC w Diff Pending, WBC Pending, RBC Pending, Hgb Pending, Hct Pending, MCV Pending, MCH Pending, RDW Pending, Plt Count Pending, MPV Pending, Gran % Pending, Lymphocytes % Pending, Monocytes % Pending, Eosinophils % Pending, Basophils % Pending, Absolute Granulocytes Pending, Absolute Lymphocytes Pending , Absolute Monocytes Pending, Absolute Eosinophils Pending, Absolute Basophils Pending, PUBS MCHC Pending Microbiology 08/08 919 LOWER RESP: Respiratory Culture - RES 08/08 919 LOWER RESP: Gram Stain - RES Assessment/Plan Assessment: This is a 76-year-old lady with past medical history significant for COPD on home oxygen, pancreatic cancer on Imatinib, CAD status post stent placement in 2007, nephrolithiasis, cholecystectomy who presents to the hospital with worsening of dyspnea for 4 days, that did not improved with outpatient steroid therapy. Problem list: # COPD exacerbation # Chest discomfort (heaviness) resolved # Dyspnea most likely secondary to COPD exacerbation: This is a patient with a history of COPD on home oxygen (2L only on exertion and if needed), patient is afebrile, leukocytosis noted but most likely secondary to steroid use, patient reports productive cough with clear sputum which is not changed from her baseline. Physical exam is positive for significant expiratory wheezes. Chest x-ray is negative for any acute pathology. Clinical picture most compatible with COPD exacerbation. Blood cultures were obtained and she received IV ceftriaxone, IV azithromycin, and IV material prednisone on 125 mg in the ED. * Vitals per protocol * Follow Sputum culture: few gram + cocci * Follow up on blood cultures * IV methyl prednisolone 40 mg q12 * IV azithromycin 500 mg daily x 5 dose. * TRC/Nebs * Pulmonary consult with Dr. Torres appreciated * TRC/nebs * F/U at COPD clinic at discharge # Chest discomfort (heaviness) resolved: Worsen after each cough. Chest pain- free at the time of physical exam. Troponin negative, EKG shows no acute changes. Received full dose aspirin in the ED. * Serial EKG and trops negative * Cardiology, Dr. 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 * She has hx of leg cramps, for which statin wasn't started as per her PCP. BB and ACEI also not started due to borderline low BP. Her BP in the hospital has been systolic 137-164/diastolic 62-90. It would not be unreasonable to start ACEI (BB not ideal due to her COPD). Pt will follow up with Dr. Krishna Daniel (her communications maintainer in [place]). # Insomnia * Melatonin at bedtime # History of pancreatic cancer: Diagnosed 6 years ago. Follows as outpatient with Dr. Montes. On imatinib 400 mg daily. * Dr. Montes's service was notified of this admission. Pt follows up Dr. Nicole Godwin * Continue imatinib 400 mg daily # Tobacco dependence - Smoke cessation counseling done on admission. # Continue home meds * Ezetimibe Diet: heart healthy DVT prophylaxis: On alps. Subcutaneous heparin discontinued due to bleeding at the injection site Full code Problem List: 1. COPD exacerbation Pain Ratin Pain Location: none Pain Goal: Remain pain free Pain Plan: none Tomorrow's Labs & Rationales: none DVT/Prophylaxis: mechanical
[2016-08-09 08:14] LABS: ABSOLUTE BASOPHIL COUNT 0 /CUMM (0.0-0.2); ABSOLUTE EOSINOPHIL COUNT 0 /CUMM (0.0-0.7); ABSOLUTE GRANULOCYTE CT 8.6 /CUMM (1.4-6.5); ABSOLUTE LYMPH COUNT 0.6 /CUMM (1.2-3.4); ABSOLUTE MONOCYTE COUNT 0.2 /CUMM (0.10-0.60); BASOPHIL % 0 % (0.0-2.0); EOSINOPHIL % 0.1 % (0-5); HEMATOCRIT 40.2 % (37-47); MEAN CORPUSCULAR HGB 27.6 PG (27.0-31.0); MEAN CORPUSCULAR HGB CONC 32.9 G/DL (33.0-37.0); MEAN CORPUSCULAR VOLUME 83.8 FL (81.0-99.0); MEAN PLATELET VOLUME 7.7 FL (7.4-10.4); PLATELET COUNT 263 /CUMM (130-400); RED BLOOD CELL CT 4.79 /CUMM (4.20-5.40)
[2016-08-09] MEDS ORDERED: PREDNISONE10 M2 PO (08:38)
--- NOTE | 2016-08-09 08:39 | Patient Discharge Instructions ---
Discharge Instructions General Discharge Information You were seen/treated for: COPD exacerbation Chest pain Special Instructions: - Please follow up at the COPD clinic - Please follow up with Dr. Krishna Daniel - Please follow up with Dr. Torres - Please follow up with your PCP in 1 week Diet Continue normal diet: Yes Activity Full Activity/No Limits: Yes Acute Coronary Syndrome Inclusion Criteria At DC or during hospital stay patient has or had the following: ACS DIAGNOSIS No Discharge Core Measures Meds if any: Prescribed or Continued at Discharge Meds if any: NOT Prescribed or Continued at Discharge Congestive Heart Failure Inclusion Criteria At DC or during hospital stay patient has or had the following: CHF DIAGNOSIS No Discharge Core Measures Meds if any: Prescribed or Continued at Discharge Meds if any: NOT Prescribed or Continued at Discharge Cerebrovascular accident Inclusion Criteria At DC or during hospital stay patient has or had the following: CVA/TIA Diagnosis No Discharge Core Measures Meds if any: Prescribed or Continued at Discharge Meds if any: NOT Prescribed or Continued at Discharge Venous thromboembolism Inclusion Criteria VTE Diagnosis No VTE Type NONE VTE Confirmed by (Test) NONE Discharge Core Measures - Per Current guidelines, there needs to be overlap - treatment for the first 5 days of Warfarin therapy. - If discharged on Warfarin prior to 5 days of - overlap therapy, the patient will need to be - assessed for post discharge needs including - *Post discharge parental anticoagulation - *Warfarin and/or parental anticoagulation education - *Follow up date to check INR post discharge At least 5 days overlap therapy as Inpatient No Meds if any: Prescribed or Continued at Discharge Note: Overlap Therapy is Warfarin and Anticoagulant Meds if any: NOT Prescribed or Continued at Discharge
[2016-08-09] MEDS ORDERED: ZITHROMAX TRI-500 M1 PO (08:49)
--- NOTE | 2016-08-09 08:51 | Discharge Summary ---
See Addendum Visit Information Visit Dates Admission Date: 08/07/16 Discharge Date: 08/09/2016 Hospital Course Course Attending Physician: SHELLY THORNE M.D Primary Care Physician: [place] Hospital Course: This is a 76-year-old lady with past medical history significant for COPD on home oxygen, pancreatic cancer on Imatinib, CAD status post stent placement in 2007, nephrolithiasis, cholecystectomy who presents to the hospital with worsening of dyspnea for 4 days, that did not improved with outpatient steroid therapy. Pt was admitted to telemetry for COPD exacerbation and chest heaviness associated with coughing. She was put on IV solumedrol and azithromycin for COPD. Discharge to complete 5 days of azithromycin and prednisone taper. Leukocytosis improved at discharge (from 15.9 to 9.3) Will f/u with Dr Torres, PCP, and COPD clinic at discharge. On day of discharge, she was satting 93% on RA at rest, and 91% on RA on ambulation. Chest heaviness resolved, and serial EKG and trops were negative. Dr Winston consulted. Pt instructed to follow up with her java software architect, Dr. Krisnha Daniel for aneurysm follow up (results of CT below) as well as possible medication changes (pt had hx of stent, only on plavix, she only takes aspirin intermittently). Statin reportedly not started in the past due to hx of muscle cramps. ACEI and BB reportedly not started due to low blood pressure. Her BP in the hospital has been systolic 137-164/diastolic 62-90. Given her COPD, BB might not be an ideal choice. Echocardiogram obtained, but results still pending at the time of discharge. She had an episode of bleeding from the heparin SC injection site after getting aspirin and plavix in the hospital. So we discontinued heparin and aspirin. Her hg ad discharge was 13.2 Allergies: Coded Allergies: No Known Drug Allergies (08/07/16) Significant Procedures: SERVICE DATE: 08/07/16 EXAM TYPE: RAD - XRY-PORTABLE CHEST XRAY EXAMINATION: XR PORTABLE CHEST CLINICAL INFORMATION: Shortness of breath. COMPARISON: Chest 12/17/2006 TECHNIQUE: Portable AP view of the chest was obtained. FINDINGS: Both lungs are hyperinflated without acute pneumonic process. The heart size and pulmonary vascularity is normal. There is old unhealed medial clavicle fracture with overriding fragments. IMPRESSION: Hyperinflated lungs without any acute pneumonic process. 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 COMPARISON: None TECHNIQUE: Multidetector CT imaging examination of the chest, abdomen and pelvis was performed with intravenous administration of 94 mL of Optiray 320. Axial images are displayed at 5 mm and 1.25 mm slice thickness. Oral contrast was given. Coronal and sagittal reformatted images were generated at the technologist's workstation and submitted for review. DLP: 619 mGy-cm FINDINGS: CHEST - LUNGS and PLEURA: Moderate centrilobular emphysema. There are calcified granulomas in the right upper lobe. Also, there are noncalcified nodules of < 0.3 cm size within the right upper lobe (images 42, 74 and 113, series 4). There is an area of minimal peribronchial opacity in the apicoposterior segment of the left upper lobe without a defined, measurable nodule; this likely represents minimal postinflammatory change, and attention to this region is recommended on future follow-up exams (images 134-144, series 4). Within the lingula, a 0.3 cm noncalcified nodule abuts the major fissure, possibly a lymph node (image 252, series 4). There are linear opacities of atelectasis within the inferior lingula. There are 0.4 cm noncalcified nodules within the lateral segment of the left lower lobe (images 325 and 350, series 4). No pleural effusion. MEDIASTINUM: The esophagus and thyroid gland are unremarkable. There is a small pericardial effusion. There are calcifications of the aortic and mitral valves and there is extensive atherosclerotic calcification of coronary arteries. Apparent stent placement within the left anterior descending coronary artery. Pulmonary arteries are unremarkable. The ascending thoracic aorta is normal in size. The mid descending aorta is dilated to 3.7 cm diameter and thrombus is seen along its inner wall; no acute intramural hematoma or dissection. Just proximal to the diaphragmatic hiatus, the descending aorta is dilated up to 4.1 cm transverse and 4 cm AP and there is moderate thrombus along its inner wall. LYMPHATICS: No pathologic sized axillary, internal mammary, hilar or mediastinal lymph nodes. CHEST WALL/BONES: No soft tissue mass within the chest wall. No suspicious osseous lesion within the thorax. ABDOMEN AND PELVIS - HEPATOBILIARY: Liver has normal size, contour and attenuation. No evidence of hepatic metastasis or intrahepatic bile duct dilatation. Gallbladder is surgically absent and the common bile duct is dilated up to 0.9 cm. PANCREAS: Within the pancreatic head, the downstream pancreatic duct is dilated up to 1.1 cm. Within the pancreatic head and uncinate process, the dilated duct communicates with a complex, septated cyst; this is seen in area measuring 4 cm transverse, 2.2 cm AP and 5 cm craniocaudal. Within the pancreatic body and neck, the pancreatic duct is dilated up to 0.5 cm. There are no enhancing mural nodules within the dilated pancreatic duct. SPLEEN: Unremarkable. ADRENAL GLANDS: Unremarkable. KIDNEYS, URETERS, BLADDER: Mild bilateral renal cortical atrophy. There is a nonobstructing 0.3 cm calculus at the lower pole of the right kidney. Bilateral, benign-appearing renal cortical cysts are seen, largest at the right upper pole measuring up to 6.4 cm maximum dimension and largest of the left lower pole measuring up to 6.3 cm maximum dimension. The ureters are unremarkable. The urinary bladder is normal. GASTROINTESTINAL TRACT: Although history of gastrointestinal stromal tumor is given, information regarding the site of origin of the tumor is not provided. The stomach is moderately distended and there is a fold within the anterior wall of the gastric body without evidence of mass lesion in this region. There are no exophytic lesions extending from the surface of the stomach. Loops of bowel are normal in caliber. The appendix is normal. No ascites. There are no soft tissue nodules within the omentum. ABDOMINAL WALL: No abdominal wall mass or hernia. VASCULAR: At the level of origin of the right renal artery, the atherosclerotic aorta measures 3.5 cm transverse, 3.3 cm AP, and there is moderate thrombus along the inner wall of the aorta. The aneurysm extends infrarenally over a distance of 4.5 cm. There is atherosclerotic calcification of the iliac and visualized femoral arteries. LYMPH NODES: No pathologic sized lymph nodes within the abdomen or pelvis. PELVIC VISCERA: 1.5 cm calcified intramural leiomyoma of the anterior uterine body. There is likely a small, 1.1 cm cyst of the left ovary (image 742, series 4). No pelvic free fluid. OSSEOUS STRUCTURES: No suspicious bone lesions. IMPRESSION: 1. Moderate pulmonary emphysema. Calcified granulomas are present within the right upper lobe. Also, there are noncalcified pulmonary nodules that measure up to 0.4 cm, and some of these might represent intrapulmonary lymph nodes. Metastases are considered unlikely, but follow-up is recommended. Given history of gastrointestinal stromal tumor, follow-up is recommended as per oncology protocol. 2. The downstream pancreatic duct is dilated up to 1.1 cm. The dilated duct communicates with a complex 4 x 2.2 x 5 cm cyst occupying the pancreatic head and uncinate process. 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 3. Multiple benign-appearing renal cysts. Nonobstructing, 0.3 cm calyceal stone at the lower pole of the right kidney. 4. No evidence of metastatic gastrointestinal stromal tumor within the abdomen or pelvis. 5. Uterine leiomyoma and probable small 1.1 cm cyst within the left ovary. 6. 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 DICTATED BY: CAROL JORDAN MD DATE/TIME DICTATED:06/21/161322 PBX INSPECTOR:VICKI DATE/TIME TRANSCRIBED:06/21/161322 Disposition Summary Disposition Principal Diagnosis: COPD exacerbation Additional Diagnosis: Chest pain associated with cough Discharge Disposition: home or self care Discharge Instructions General Discharge Information Code Status: Full Code Patient's Diet: Heart healthy Patient's Activity: As tolerated Follow-Up Instructions/Appts: You were seen/treated for: COPD exacerbation Chest pain Special Instructions: - Please follow up at the COPD clinic - Please follow up with Dr. Krishna Daniel - Please follow up with Dr. Torres - Please follow up with your PCP in 1 week Medications at Discharge Discharge Medications: Continue taking these medications: Clopidogrel Bisulfate (Clopidogrel) 75 MG TABLET 1 Tablet ORAL DAILY Qty = 30 Comments: Last Taken: 08/09/16 Time: 9:35 AM Ezetimibe (Zetia) 10 MG TABLET 1 Tablet ORAL DAILY Comments: Last Taken: 08/09/16 Time: 9:30 AM Fluticasone/Salmeterol (Advair 250-50 Diskus) 250 MCG-50 MCG/DOSE BLST.W.DEV 1 PUFF ORAL DAILY Comments: Last Taken: NOT GIVEN IN HOSPITAL Time: Imatinib Mesylate (Gleevec) 400 MG TABLET 1 Tablet ORAL DAILY Instructions: TAKE WITH FOOD PER PT Comments: Last Taken: 08/08/16 Time: 5:50 PM Albuterol Sulfate (Albuterol Sulfate) 2.5 MG/0.5 ML VIAL.NEB 1 PUFF ORAL DAILY Comments: Last Taken: 08/09/16 Time: 11:30 AM Tiotropium [place] (Spiriva) 18 MCG CAP.W.DEV 1 PUFF ORAL DAILY Comments: Last Taken: NOT GIVEN IN HOSPITAL Time: Albuterol Sulfate (Proair Hfa) 90 MCG HFA.AER.AD 1 PUFF ORAL DAILY as needed for COPD Comments: Last Taken: RECEIVED NEBS Time: Start taking the following new medications: Prednisone (Prednisone) 10 MG TABLET 1 Tablet ORAL See Instructions Qty = 63 No Refills Instructions: Please take 6 tablets (60 mg) for 3 days Then 5 tablets (50 mg) for the next 3 days Then 4 tablets (40 mg) for the next 3 days Then 3 tablets (30 mg) for the next 3 days Then 2 tablets (20 mg) for the next 3 days Then 1 tablet (10 mg) for the next 3 days Then stop Comments: Last Taken: RECEIVED IV SOLUMEDROL 08/09/16 9:30 AM Time: Azithromycin (Zithromax Tri-Edward) 500 MG TABLET 1 Tablet ORAL DAILY Qty = 2 No Refills Comments: Last Taken: 08/09/16 Time: 9:30 AM Copies To: YRN NEWMAN DO, MD,MARNIE SAnthony; DAKOTAH KAUR,GERARDO TORRES MD,ANTHONY Attending MD Review Statement Documenting Attending: SHELLY THORNE M.D
[2016-08-09 09:01] VITALS: BP 138/80
[2016-08-09 09:10] LABS: WHITE BLOOD CELL COUNT 9.3 /CUMM (4.8-10.8)
--- NOTE | 2016-08-09 10:33 | PN- Cardiology ---
Subjective Subjective: Breathing improved and no further chest discomfort. Also denies any palpitations, orthopnea, paroxysmal nocturnal dyspnea, lower extremity edema, etc. Objective Vital Signs and I&Os Vital Signs Date Time Temp Pulse Resp B/P Pulse O2 O2 Flow FiO2 Ox Delivery Rate 08/09 0901 98.2 94 18 138/80 96 Room Air 08/09 0839 92 Nasal 2.0L Cannula 08/09 0000 Room Air 08/08 2200 97.2 90 18 164/60 97 Room Air 08/08 1620 97 Nasal 2.0L Cannula 08/08 1600 97 Nasal 2.0L Cannula 08/08 1540 97.5 95 20 148/80 96 Nasal 2.0L Cannula Intake & Output 08/09 1600 08/09 0800 08/09 0000 08/08 1600 08/08 0800 08/08 0000 Intake Total 100 470 850 240 400 Output Total Balance 100 470 850 240 400 Intake, IV 20 250 Intake, Oral 100 450 600 240 400 Number 0 Bowel Movements Physical Exam: Well-developed, well-nourished elderly female in no acute distress with nasal oxygen in place. Vital signs: See above. HEENT: Normocephalic, atraumatic, EOMI, slightly tremulous membranes. Neck: No JVD, no bruits. Lungs: Decreased breath sounds bilaterally and otherwise clear. Heart: S1, S2 with no murmur, gallop, or rub appreciated. PMI fifth ICS at MCL. Abdomen: Soft, nontender, positive bowel sounds. Extremities: No edema. 08/07 08/07 1730 1010 Blood Gas pH (7.35 - 7.45 PH) 7.42 pCO2 (35 - 45 TORR) 38 pO2 (80 - 100 TORR) 169 H HCO3 (21 - 28 MEQ/L) 24 ABG O2 Sat (Measured) (>96.0 %) 99.0 P-50 (Temp Corrected) YES Carboxyhemoglobin (1.5 - 5.0 %) 0.8 L O2 Concentration % NEB TX Temperature (97.0 - 100.0 FARH) 96.7 L O2 Delivery Method 6L Chemistry Troponin I (< 0.11 ng/ml) 0.03 Miscellaneous Phlebotomy Draw Site RIGHT RADIAL 08/07 0955 Chemistry Sodium (137 - 145 mmol/L) 143 Potassium (3.5 - 5.1 mmol/L) 4.6 Chloride (98 - 107 mmol/L) 106 Carbon Dioxide (22 - 30 mmol/L) 25 Anion Gap (5 - 16) 11 BUN (7 - 17 mg/dL) 24 H Creatinine (0.5 - 1.0 mg/dL) 1.0 Estimated GFR (>60 ml/min) 54 L BUN/Creatinine Ratio (7 - 25 %) 24.0 Glucose (65 - 99 mg/dL) 105 H Calcium (8.4 - 10.2 mg/dL) 10.3 H Total Bilirubin (0.2 - 1.3 mg/dL) 0.6 AST (14 - 36 U/L) 31 ALT (9 - 52 U/L) 30 Alkaline Phosphatase (<127 U/L) 139 H Troponin I (< 0.11 ng/ml) 0.03 Total Protein (6.3 - 8.2 g/dL) 7.5 Albumin (3.5 - 5.0 g/dL) 4.6 Globulin (1.9 - 4.2 gm/dL) 2.9 Albumin/Globulin Ratio (1.1 - 2.2 %) 1.6 Hematology CBC w Diff MAN DIFF ORDERED WBC (4.8 - 10.8 /CUMM) 15.9 H RBC (4.20 - 5.40 /CUMM) 5.09 Hgb (12.0 - 16.0 G/DL) 14.1 Hct (37 - 47 %) 42.8 MCV (81.0 - 99.0 FL) 84.1 MCH (27.0 - 31.0 PG) 27.6 RDW (11.5 - 14.5 %) 16.0 H Plt Count (130 - 400 /CUMM) 322 MPV (7.4 - 10.4 FL) 7.6 Gran % (42.2 - 75.2 %) 92.7 H Lymphocytes % (20.5 - 51.1 %) 4.6 L Monocytes % (1.7 - 9.3 %) 2.7 Eosinophils % (0 - 5 %) 0 Basophils % (0.0 - 2.0 %) 0 L Absolute Granulocytes (1.4 - 6.5 /CUMM) 14.8 H Absolute Lymphocytes (1.2 - 3.4 /CUMM) 0.7 L Absolute Monocytes (0.10 - 0.60 /CUMM) 0.4 Absolute Eosinophils (0.0 - 0.7 /CUMM) 0 Absolute Basophils (0.0 - 0.2 /CUMM) 0 Platelet Estimate (ADEQUATE) VERIFIED BY SMEAR Anisocytosis 1+ Stomatocytes 1+ PUBS MCHC (33.0 - 37.0 G/DL) 32.9 L Diagnostic Data EKG Results (08/07/2016): Sinus rhythm and within normal limits. No significant change from tracing performed earlier today. CXR Results (08/07/2016): Both lungs are hyperinflated without acute pneumonic process. The heart size and pulmonary vascularity is normal. There is old unhealed medial clavicle fracture with overriding fragments. Assessment/Plan Mrs. Cassidy is an elderly white female with a long-standing history of tobacco use and COPD with previous acute exacerbations who presents with similar symptoms to previous exacerbations, as well as, known coronary artery disease for which she previously had PCI/stenting. While the chest "heaviness" she has been experiencing is of some concern, it has atypical features in that it is nonexertional and is exacerbated by coughing. Assessment/Plan Recommendations: * Telemetry admission, follow-up electrocardiogram, follow-up troponins. * Given the atypical nature of her chest discomfort would not initiate IV heparin or other new cardiac medications at this time. * Schedule an echocardiogram to assess her left ventricular systolic/diastolic function and help exclude regional wall motion abnormalities, assess right ventricular function, assess pulmonary artery pressure, etc. * Oxygen, TRC, antimicrobial therapy, steroids, etc. as per pulmonary medicine. * Given her vague history of thoracic and abdominal aortic aneurysms would consider CT of the chest, abdomen/pelvis. * Would continue her on her outpatient cardiac regimen (clopidogrel, ezetimibe). * It is not clear why she is not on beta lyle, statin, HERON inhibitor or angiotensin receptor lyle therapy. One would suspect that she is not on beta lyle therapy secondary to her pulmonary disease. * Prophylaxis to prevent deep venous thrombosis. Further recommendations will follow, Current Medications: Current Medications Sig/Mitch Start time Last Medication Dose Route Stop Time Status Admin Albuterol Sulfate 3 ML EVERY 4 HRS/AWAKE 08/08 0845 AC 08/09 INH 0835 Aspirin 81 MG DAILY 08/08 1530 DC 08/08 PO 2011 Azithromycin 500 MG DAILY 08/08 1000 AC 08/09 Dextrose/Water 250 ML IV 0937 Clopidogrel Bisulfate 75 MG DAILY 08/07 1213 AC 08/09 PO 0937 Ezetimibe 10 MG DAILY 08/07 1213 AC 08/09 PO 0937 Heparin Sodium 5,000 UNIT Q8 08/07 1405 DC 08/09 (Porcine) SC 0505 Ipratropium [place] 2.5 ML EVERY 4 HRS/AWAKE 08/08 0845 AC 08/09 INH 0835 Melatonin 5 MG AT BEDTIME 08/08 2200 AC 08/08 PO 2153 Methylprednisolone 40 MG Q12 08/08 2000 AC 08/09 IV 0937 Methylprednisolone 40 MG Q8 08/07 1400 DC 08/08 IV 0522 Results Last 48 Hrs of Labs/Mics: Laboratory Tests 08/09/16 0725: CBC w Diff NO MAN DIFF REQ, RBC 4.79, MCV 83.8, MCH 27.6, RDW 16.0 H, MPV 7.7, Gran % 92.0 H, Lymphocytes % 6.0 L, Monocytes % 1.9, Eosinophils % 0.1, Basophils % 0 L, Absolute Granulocytes 8.6 H, Absolute Lymphocytes 0.6 L, Absolute Monocytes 0.2, Absolute Eosinophils 0, Absolute Basophils 0, PUBS MCHC 32.9 L 08/07/16 2250: Troponin I 0.04 08/07/16 1730: Troponin I 0.03 Microbiology 08/07 1148 NASOPHARYN: Influenza Virus A & B Rapid Smear - COMP Assessment/Plan Assessment/Plan Assessment/Plan Mrs. Cassidy is an elderly white female with a long-standing history of tobacco use and COPD with previous acute exacerbations who presents with similar symptoms to previous exacerbations, as well as, known coronary artery disease for which she previously had PCI/stenting. While the chest "heaviness" she has been experiencing is of some concern, it has atypical features in that it is nonexertional and is exacerbated by coughing. She has ruled out for myocardial infarction by serial cardiac enzyme determinations and this had no acute electrocardiographic abnormalities observed on her electrocardiograms. Suspect her chest discomfort was musculoskeletal in nature and not secondary to her known coronary artery disease. No further recommendations from a cardiac standpoint at this time. 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 Recommendations: * Continue oxygen, TRC, antimicrobial therapy, steroids, etc. as per pulmonary medicine. * Follow-up on her history of thoracic and abdominal aortic aneurysms as an outpatient. * Would continue her on her outpatient cardiac regimen (clopidogrel, ezetimibe). * Needs further evaluation of her hypercalcemia. * Continued prophylaxis to prevent deep venous thrombosis. Continue telemetry? No
--- NOTE | 2016-08-09 11:22 | PN- Pulmonary ---
Subjective HPI/Critical Care Issues: pt seen and examined feeling better 2LNC improved overall no nvdc Objective Current Medications: Current Medications Sig/Mitch Start time Last Medication Dose Route Stop Time Status Admin Albuterol Sulfate 3 ML EVERY 4 HRS/AWAKE 08/08 0845 AC 08/09 INH 0835 Aspirin 81 MG DAILY 08/08 1530 DC 08/08 PO 2011 Azithromycin 500 MG DAILY 08/08 1000 AC 08/09 Dextrose/Water 250 ML IV 0937 Clopidogrel Bisulfate 75 MG DAILY 08/07 1213 AC 08/09 PO 0937 Ezetimibe 10 MG DAILY 08/07 1213 AC 08/09 PO 0937 Heparin Sodium 5,000 UNIT Q8 08/07 1405 DC 08/09 (Porcine) SC 0505 Ipratropium [place] 2.5 ML EVERY 4 HRS/AWAKE 08/08 0845 AC 08/09 INH 0835 Melatonin 5 MG AT BEDTIME 08/08 2200 AC 08/08 PO 2153 Methylprednisolone 40 MG Q12 08/08 2000 AC 08/09 IV 0937 Methylprednisolone 40 MG Q8 08/07 1400 DC 08/08 IV 0522 Vital Signs & I&O Last 24 Hrs of Vitals and I&O: Vital Signs Date Time Temp Pulse Resp B/P Pulse O2 O2 Flow FiO2 Ox Delivery Rate 08/09 0901 98.2 94 18 138/80 96 Room Air 08/09 0839 92 Nasal 2.0L Cannula 08/09 0800 96 Nasal 2.0L Cannula 08/09 0000 Room Air 08/08 2200 97.2 90 18 164/60 97 Room Air 08/08 1620 97 Nasal 2.0L Cannula 08/08 1600 97 Nasal 2.0L Cannula 08/08 1540 97.5 95 20 148/80 96 Nasal 2.0L Cannula Intake & Output 08/09 1600 08/09 0800 08/09 0000 Intake Total 100 470 Output Total Balance 100 470 Intake, IV 20 Intake, Oral 100 450 Number 0 Bowel Movements Exam Other Physical Findings: General - Alert, awake and oriented HEENT - normocephalic, atraumatic, no thrush Cardiovascular - S1, S2 Lungs - bilateral wheezing, more on right Abdomen - soft, bowel sounds positive, no tenderness Extremities - without edema or cyanosis Results Last 24 Hrs of Lab Results: Laboratory Tests 08/09/16 0725: CBC w Diff NO MAN DIFF REQ, RBC 4.79, MCV 83.8, MCH 27.6, RDW 16.0 H, MPV 7.7, Gran % 92.0 H, Lymphocytes % 6.0 L, Monocytes % 1.9, Eosinophils % 0.1, Basophils % 0 L, Absolute Granulocytes 8.6 H, Absolute Lymphocytes 0.6 L, Absolute Monocytes 0.2, Absolute Eosinophils 0, Absolute Basophils 0, PUBS MCHC 32.9 L Impression/Plan Impression/Plan Impression/Plan: Impression 76 year old woman -Severe COPD, nocturnal o2 at home, air trapping/emphysema - now with acute exacerbation of COPD secondary to bronchitis which is likely viral in etiology -tobacco dependence Plan -TRC/Nebs -stop solumedrol, begin prednisone taper every 3 days by 10mg starting from 60mg -5 day course of zithromax, d/c ceftriaxone -f/u ECHO -monitor o2 sat, check on room air with exertion to determine o2 needs -smoking cessation - counseled -upon discharge would be useful to refer to COPD wellness clinic -At home on spiriva and advair -can use DUONEBS here and not administer inhalers until discharged -DVT prophylaxis at all times
--- NOTE | 2016-08-09 16:31 | ECHOCARDIOGRAM REPORT ---
EROS BARNEY Age: 76 : 1940 Gender: F Exam Date: 08/08/2016 19:23 Exam Location: 1 [address] Ht (in): 61 Wt (lb): 117 BSA: 1.52 BP: 138 / 82 Ordering Physician: PIA MEI MD Referring Physician: Irvin Winston MD Technologist: Tarsha Alvarado [facility] Room Number: 173 Indications: LV FUNCTION AFTER ACS Rhythm: Sinus Technical Quality: Fair FINDINGS Left Ventricle Small left ventricular cavity. Mild concentric left ventricular hypertrophy. Normal left ventricular wall motion. Normal left ventricular ejection fraction visually estimated at >65%. Mildly increased left ventricular outflow tract velocity (1.36 m/s).abnormal relaxation filling pattern of the left ventricle for age (stage 1 diastolic dysfunction). Right Ventricle Normal right ventricular size and function. Right Atrium Normal right atrial size. Left Atrium Normal left atrial size. Mitral Valve Moderate mitral annular calcification. Mitral valve mildly thickened. Mild mitral stenosis. No mitral regurgitation. Aortic Valve Diffuse thickening of the aortic valve cusps with reduced excursion. [id number] aortic stenosis. Trace aortic regurgitation. Tricuspid Valve Structurally normal tricuspid valve. Trace tricuspid regurgitation. No evidence of pulmonary hypertension. Right ventricular systolic pressure estimated to be within the normal range at 12 mmHg. Pulmonic Valve Pulmonic valve not well visualized, grossly normal. Trace pulmonic regurgitation. Pericardium No pericardial effusion. Great Vessels Normal size aortic root. CONCLUSIONS Small left ventricular cavity. Mild concentric left ventricular hypertrophy. Normal left ventricular ejection fraction visually estimated at > 65%. Mildly increased left ventricular outflow tract velocity (1.36 m/s). Abnormal relaxation filling pattern of the left ventricle for age (stage 1 diastolic dysfunction). Normal right ventricular size and function. Normal atrial size. Mild mitral stenosis. [id number] aortic stenosis. Trace aortic regurgitation. Trace tricuspid regurgitation. No evidence of pulmonary hypertension. Trace pulmonic regurgitation. Irvin Winston M.D. (Electronically Signed) Final Date: 09 August 2016 16:30 MEASUREMENTS (Male / Female) Normal Values 2D ECHO LV Diastolic Diameter PLAX 3.5 cm 4.2 - 5.9 / 3.9 - 5.3 cm LV Systolic Diameter PLAX 2.2 cm 2.1 - 4.0 cm LV Fractional Shortening PLAX 37.1 % 25 - 46 % LV Ejection Fraction 2D Teich 68.1 % IVS Diastolic Thickness 1.3 cm LVPW Diastolic Thickness 1.3 cm LV Relative Wall Thickness 0.7 RV Internal Dim ED PLAX 2.2 cm 1.9 - 3.8 cm LVOT Diameter 2.0 cm Aortic Root Diameter 2.7 cm LA Systolic Diameter LX 2.8 cm 3.0 - 4.0 / 2.7 - 3.8 cm LA Volume 28.0 cm 18 - 58 / 22 - 52 cm Ascending Aorta Diameter 3.4 cm DOPPLER AV Peak Velocity 262.0 cm/s AV Peak Gradient 27.5 mmHg AV Mean Velocity 169.0 cm/s AV Mean Gradient 14.0 mmHg AV Velocity Time Integral 48.5 cm LVOT Peak Velocity 136.0 cm/s LVOT Peak Gradient 7.4 mmHg LVOT Mean Velocity 92.6 cm/s LVOT Mean Gradient 4.0 mmHg LVOT Velocity Time Integral 33.0 cm LVOT Stroke Volume 103.7 cm AV Area Cont Eq vti 2.1 cm AV Area Cont Eq pk 1.6 cm MV Peak Velocity 226.0 cm/s MV Peak Gradient 20.4 mmHg MV Mean Velocity 118.0 cm/s MV Mean Gradient 7.0 mmHg Mitral E Point Velocity 117.0 cm/s Mitral A Point Velocity 189.0 cm/s Mitral E to A Ratio 0.6 MV PHT Velocity 116.0 cm/s MV Deceleration [place] 290.0 cm/s MV Pressure Half Time 120.0 ms MV Area PHT 1.8 cm MV Deceleration Time 565.0 ms TR Peak Velocity 128.0 cm/s TR Peak Gradient 6.6 mmHg Right Atrial Pressure 5.0 mmHg Pulmonary Artery Systolic Pressu 11.6 mmHg Right Ventricular Systolic Press 11.6 mmHg PV Peak Velocity 120.0 cm/s PV Peak Gradient 5.8 mmHg PV Mean Velocity 83.1 cm/s PV Mean Gradient 3.0 mmHg PV Velocity Time Integral 24.4 cm LV E' Lateral Velocity 6.7 cm/s Mitral E to LV E' Lateral Ratio 17.5 LV E' Septal Velocity 6.4 cm/s Mitral E to LV E' Septal Ratio 18.3
== END 2016-08-09 12:20 | DRG 191 ==
LOC: ENRESERVDT → ENRESERVTM → ERH 09:31 → ERHI 11:29 → 1NO 11:29 → ENPENDDIS 11:29 → 1NO 12:43
PROVIDERS: Emergency Medicine; Radiology Diagnostic Radiology; ADMIT Internal Medicine
DX: J44.0 Chronic obstructive pulmonary disease with (acute) lower respiratory infection (principal); C49.A0 Gastrointestinal stromal tumor, unspecified site; Z99.81 Dependence on supplemental oxygen; C25.9 Malignant neoplasm of pancreas, unspecified; J20.9 Acute bronchitis, unspecified; J44.1 Chronic obstructive pulmonary disease with (acute) exacerbation; F17.210 Nicotine dependence, cigarettes, uncomplicated; I25.10 Atherosclerotic heart disease of native coronary artery without angina pectoris; Z95.5 Presence of coronary angioplasty implant and graft; F17.200 Nicotine dependence, unspecified, uncomplicated
CPT/HCPCS: 1NP; 6020; 36415; 87040; 87070; 87804; 87804-59; 93005; 93010; 93306; 96374; 96375; G0378; J0456; J0696; J1644; J2920; J2930; J3490; J7060

== ENCOUNTER → 2016-10-26 | Day surgery (SDC) | payer OTHER ==
[~2016-10-26] VITALS: Ht 152.4 cm; Wt 53.5 kg
[~2016-10-26] MED LIST: ADVAIR 250-501 EACH PO; ALBUTEROL2.5 MG/0.5 PO; CEPHALEXIN500 M3 PO; CLOPIDOGREL75 M1 PO; GLEEVEC400 M1 PO; PREDNISONE10 M2 PO; PROAIR HFA8.5 GM PO; SPIRIVA18 MCG PO; VITAMIN D1000 UNIT PO; ZETIA10 M1 PO; ZITHROMAX TRI-500 M1 PO
--- NOTE | 2016-10-26 09:30 | Operative Report ---
Operative/Inv Procedure Report Surgery Date: 10/26/16 Name of Procedure: Cataract extraction lens implantation left eye Pre-Operative Diagnosis: Age-related cataract left eye 20/25 vision 20/25 vision Post-Operative Diagnosis: Same Estimated Blood Loss: none Surgeon/Pipelayer: LUIS KAUR,TWIN Cota Anesthesia: local monitored anesthesi Complications: None Operative/Procedure Note Note: The patient was brought to the operating room standard monitoring equipment was attached the patient was prepped and draped in the usual fashion for intraocular surgery. A lid speculum was placed to retract the lids. The case was begun by making a temporal incision with a 2.4 mm keratome. The eye was stabilized with a Barrett ring during this incision. 1 mL of non-preserved lidocaine was introduced into the anterior chamber to provide anesthesia. The anterior chamber was then filled and deepened with viscoelastic. A curvilinear capsulorrhexis was achieved using a 30-gauge needle and is a cystotome and capsulorrhexis was finished using a Utrata forceps. A second or paracentesis incision was made temporally with a 1 mm MVR blade. The lens was then hydrodissected with balanced salt solution and found to be rotatable. The lens was emulsified using phacoemulsification and a modified four-quadrant cracking technique. The residual cortical material was removed using automated irrigation and aspiration and as much of the anterior capsular rim was cleaned as well as possible. The posterior capsule was cleaned first with the automated machine on a low setting and then manually with a Donn squeegee. The capsular bag was deepened with viscoelastic. The lens a Technis 1 21.0 diopter placed into the bag under direct visualization and rotated so that the haptics were at 12 and 6:00. Viscoelastic was then removed from the eye by flushing it out and then by automated irrigation and aspiration. The eye was pressurized to a normal tone. 1/10 of a cc of vancomycin solution was introduced into the anterior chamber to provide antibiotic prophylaxis. The wounds were sealed by hydrating the stroma adjacent to them and the eye was left at a proper tone after the wounds were checked and found not to be leaking. The lid speculum was removed from the orbit. Antibiotic and steroid drops were placed on the eye and then the eye was shielded. Monitoring equipment was removed from the patient and the patient was removed from the operative suite to the holding area. The patient tolerated the procedure well and will be seen in the office tomorrow.
== END ==
LOC: STS 03:53
DX: H25.9 Unspecified age-related cataract (principal); J44.9 Chronic obstructive pulmonary disease, unspecified; N28.9 Disorder of kidney and ureter, unspecified; F17.200 Nicotine dependence, unspecified, uncomplicated; J45.909 Unspecified asthma, uncomplicated
CPT/HCPCS: J2250; V2632

== ENCOUNTER 2017-06-29 14:35 | Inpatient (IN) | payer OTHER ==
[~2017-06-29] VITALS: Ht 154.9 cm; Wt 55.3 kg
[~2017-06-29 14:35] MED LIST changes: +ALBUTEROL2.5 MG/0.5 INH; -ALBUTEROL2.5 MG/0.5 PO
--- NOTE | 2017-06-29 16:41 | ED DYSPNEA/ASTHMA COMPLAINT ---
History of Present Illness General Chief Complaint: General Adult Stated Complaint: SIB MD TRACY FOR PAIN ON LEFT SIDE? Source: patient, family Exam Limitations: no limitations Vital Signs & Intake/Output Vital Signs & Intake/Output Vital Signs Date Time Temp Pulse Resp B/P B/P Pulse O2 O2 Flow FiO2 Mean Ox Delivery Rate 06/29 2112 98.5 84 19 120/71 99 Nasal 2.0L Cannula 06/29 1836 97.6 85 20 111/74 99 Nasal 2.0L Cannula 06/297 100 Nasal 2.0L Cannula 06/29 1824 98 Nasal 2.5L Cannula 06/29 1601 97.7 110 20 101/67 95 Room Air 06/29 1441 99.7 111 20 130/76 Room Air Allergies Coded Allergies: No Known Drug Allergies (08/07/16) Reconcile Medications Albuterol Sulfate 2.5 MG/0.5 ML VIAL.NEB 1 PUFF INH 4XDAILY PRN COPD ( Reported) Clopidogrel Bisulfate (Clopidogrel) 75 MG TABLET 1 TAB PO DAILY HEART ( Reported) Diltiazem HCl (Cardizem Cd) 120 MG CAP.ER.24H 1 CAP PO DAILY HEART/BP ( Reported) Fluticasone/Salmeterol (Advair 250-50 Diskus) 250 MCG-50 MCG/DOSE BLST.W.DEV 1 PUFF PO BID COPD (Reported) Tiotropium Halsey (Spiriva Respimat) (Unknown Strength) MIST.INHAL 2 PUFF INH DAILY COPD (Reported) Triage Note: PT TO ED C/O LEFT SIDED PAIN UNDER LEFT RIB SINCE LAST NIGHT. DENIES INJURY/FALLING PAIN IS WORSE WITH COUGHING, DEEP BREATHING, MOVEMENT. MEDICATED WITH MOTRIN IN TRIAGE PER PT REQUEST. Triage Nurses Notes Reviewed? yes Onset: Gradual Duration: getting worse Timing: recent history Severity: moderate HPI: This is a 76-year-old lady with past medical history significant for COPD on home PRN oxygen, pancreatic cancer PREVIOUSLY ON Imatinib, CAD status post stent placement in 2007, nephrolithiasis, cholecystectomy is AN EVERYDAY- smoker who presents emergency room with a 7-day history of worsening cough and shortness of breath with patient just finished a course of prednisone prescribed by Dr. Tracy her director of vocational training however patient states that last night she began having left-sided intercostal rib pain is made worse with coughing. Patient denies any substernal chest pain denies any fever or chills R pain jaw pain leg swelling hemoptysis. (Rayshawn Rawls) Past History Travel History Traveled to [place] past 21 day No Medical History Any Pertinent Medical History? see below for history Neurological: NONE EENT: cataracts, LEFT EAR OUZINKIE Cardiovascular: CAD, hyperlipidemia, CARDIAC STENTS Respiratory: COPD Gastrointestinal: PANCREATIC TUMOR CHOLECYSTECTOMY Hepatic: NONE Renal: nephrolithiasis Musculoskeletal: NONE Psychiatric: NONE Endocrine: NONE Blood Disorders: NONE Cancer(s): pancreatic cancer RN FLIGHT/Reproductive: NONE History of MRSA: No History of VRE: No History of CDIFF: No Influenza Vaccine: 05/06/16 Surgical History Surgical History: cholecystectomy, PTCA WITH STENT Psychosocial History Who do you live with Patient/Self Services at Home Oxygen What is your primary language Pashto Tobacco Use: Current Daily Use Daily Tobacco Use Amount/Type: => 5 Cigarettes daily ETOH Use: denies use Illicit Drug Use: denies illicit drug use Family History Hx Contributory? No (Rayshawn Rawls) Review of Systems Review of Systems Constitutional: Reports: no symptoms. EENTM: Reports: no symptoms. Respiratory: Reports: see HPI, cough. Cardiovascular: Reports: see HPI. GI: Reports: no symptoms. Genitourinary: Reports: no symptoms. Musculoskeletal: Reports: no symptoms. Skin: Reports: no symptoms. Neurological/Psychological: Reports: no symptoms. Hematologic/Endocrine: Reports: no symptoms. Immunologic/Allergic: Reports: no symptoms. All Other Systems: Reviewed and Negative (Rayshawn Rawls) Physical Exam Physical Exam General Appearance: alert, mild distress, thin Head: atraumatic Eyes: Bilateral: normal appearance, PERRL, EOMI. Ears, Nose, Throat: normal pharynx, normal ENT inspection, hearing grossly normal Neck: normal inspection, supple, full range of motion Respiratory: chest non-tender, no respiratory distress, quiet respiration, decreased breath sounds Cardiovascular: tachycardia Peripheral Pulses: 2+ radial (R), 2+ radial (L) Gastrointestinal: normal bowel sounds, soft, non-tender Extremities: normal inspection, normal capillary refill Neurologic/Psych: no motor/sensory deficits, awake, alert Skin: intact, normal color, warm/dry Lymphatic: no anterior cervical phyllis Core Measures ACS in differential dx? Yes CVA/TIA Diagnosis No Sepsis Present: No Sepsis Focused Exam Completed? No (Rayshawn Rawls) Progress Differential Diagnosis: asthma, AMI, bronchitis, costochondritis, CHF, COPD, musculoskeletal pain, pericarditis, pulmonary embolism, pneumonia, pneumothorax, unstable angina Plan of Care: Orders Procedure Date/time Status Heart Healthy Diet 06/30 B Active Code Status 06/29 2154 Active STREP PNEUMO URINARY ANTIGEN 06/29 2042 Active LEGIONELLA URINARY ANTIGEN 06/29 204 Active TRC EVALUATION (GEN) 06/29 2041 Active OXYGEN SETUP (GEN) 06/29 2041 Active Pathway - chart 06/29 2041 Active House Staff 06/29 2041 Active Patient Data 06/29 2041 Active Code Status 06/29 204 Complete Admit to inpatient 06/29 2017 Active Patient Data 06/29 2004 Active OXYGEN SETUP (GEN) 06/29 1922 Active Saline Lock 06/29 192 Active Vital Signs 06/29 1922 Active Activity/Ambulation 06/29 1922 Active Code Status 06/29 192 Complete BLOOD CULTURE 06/29 175 Active Add-on Test (ER Only) 06/29 1756 Active RAPID VIRAL INFLUENZA A 06/29 1756 Complete LOWER RESPIRATORY CULTURE 06/29 1756 Active Intake & Output 06/29 1753 Active LACTIC ACID 06/29 1700 Complete Telemetry/Needle Loom Operator Helper 06/29 1641 Active TROPONIN LEVEL 06/29 1641 Complete D-DIMER 06/29 1641 Complete COMPREHENSIVE METABOLIC PANEL 06/29 1641 Complete CBC WITHOUT DIFFERENTIAL 06/29 1641 Complete EKG 06/29 1641 Active VTE Mechanical Prophylaxis 06/29 UNK Active Current Medications Sig/Mitch Start time Last Medication Dose Stop Time Status Admin Azithromycin 500 MG DAILY 06/30 1000 UNVr (Zithromax) Sodium Chloride 250 ML (Normal Saline 0.9%) Ceftriaxone Sodium 1,000 MG DAILY 06/30 1000 AC (Rocephin) Clopidogrel Bisulfate 75 MG DAILY 06/30 1000 AC (Plavix) Methylprednisolone 40 MG Q8 06/30 0600 AC (Solumedrol) Heparin Sodium 5,000 UNIT Q8 06/29 2300 AC (Porcine) Albuterol Sulfate 3 ML Q4H PRN 06/29 2200 UNVr (Proventil) Budesonide/ 1 PUF BID 06/29 2200 AC Formoterol Fumarate (Symbicort) Ipratropium Halsey 2.5 ML Q4 HRS NEEDED PRN 06/29 2200 AC (Atrovent) Morphine Sulfate 2 MG Q6P PRN 06/29 2144 AC (Morphine) Sodium Chloride 1,000 ML Q13H 06/29 2144 AC (Normal Saline 0.9%) 06/30 104 Acetaminophen 650 MG Q8P PRN 06/29 2044 AC (Tylenol) Laboratory Tests 06/29/17 1700: Anion Gap 15, Estimated GFR 33 L, BUN/Creatinine Ratio 21.3, Glucose 100 H, Lactic Acid 1.2, Calcium 9.5, Total Bilirubin 1.2, AST 23, ALT 32, Alkaline Phosphatase 102, Troponin I 0.09, Total Protein 6.4, Albumin 3.9, Globulin 2.5, Albumin/Globulin Ratio 1.6, D-Dimer High Sensitivty 1216 H, CBC w Diff MAN DIFF ORDERED, RBC 5.32, MCV 80.7 L, MCH 26.7 L, RDW 16.0 H, MPV 7.2 L, Gran % 90.6 H, Lymphocytes % 6.7 L, Monocytes % 2.2, Eosinophils % 0.1, Basophils % 0.4, Absolute Granulocytes 23.4 H, Segmented Neutrophils 77 H, Band Neutrophils 8 H, Absolute Lymphocytes 1.7, Lymphocytes 10 L, Monocytes 5, Absolute Monocytes 0.6, Absolute Eosinophils 0, Absolute Basophils 0.1, Platelet Estimate ADEQUATE, Poikilocytosis 1+, Anisocytosis 1+, Microcytic Cells 1+, Stomatocytes 1+, PUBS MCHC 33.0 Microbiology 06/29 2042 URINE ROUT: Legionella Antigen - ORD 06/29 2042 URINE ROUT: Streptococcus pneumoniae Antigen (M - ORD 06/29 1814 BLOOD: Blood Culture - RECD 06/29 1810 NASOPHARYN: Influenza Virus A & B Rapid Smear - COMP 06/29 1809 BLOOD: Blood Culture - RECD 06/29 1755 LOWER RESP: Respiratory Culture - ORD 06/29 1755 LOWER RESP: Gram Stain - ORD Patient on initial examination was in no respiratory stress patient was given supplemental 2 L of oxygen oxygen saturation 95%. Patient does have decreased breath sounds however has a 25,000 white count and suspicion of pneumonia on arrival, CT scan was resulted showing no concerns of pulmonary embolism there is concerns of a known stable aortic aneurysm with thrombus however I discussed imaging results with radiologist Dr. Jacky STEWART who states that there is no significant changes and which I discussed results with vascular surgeon (ON-CALL) who also advised at this time that no emergent treatment is needed for patient's stable aortic aneurysm and thrombus no heparin to be administered Discussed admission with patient who agrees and has no questions patient did have improvement of aeration after nebulizer treatment patient also had resolution of her pleuritic chest pain with pain medications administered No concerns of sepsis upon admission Diagnostic Imaging: Viewed by Me: CT Scan. Radiology Impression: acute abnormality Initial ED EKG: normal QRS complex, normal sinus rhythm, SINUS TACHYCARDIA 106 BPM Prior EKG: unchanged Comments: PATIENT: EROS BARNEY PRESENT AGE: 77 PATIENT ACCOUNT NO: [id number] : 38 LOCATION: [facility] ORDERING PHYSICIAN: Rayshawn BOYCE SERVICE DATE: 06/29/17 EXAM TYPE: CAT - CTA CHEST-PULMONARY EMBOLISM EXAMINATION: CT ANGIOGRAM OF THE CHEST WITH AND WITHOUT CONTRAST (CT PULMONARY ANGIOGRAM FOR PE) CLINICAL INFORMATION: CHEST PAIN, ELEVATED DIMER COMPARISON: CT chest 12/26/2016. Chest x-ray 03/23/2017 TECHNIQUE: Prior to contrast administration, noncontrast localization images were obtained. Subsequently, multidetector volumetric imaging was performed from the thoracic inlet to below the diaphragms following the administration of 74 mL Optiray 350 intravenous contrast. No contrast reaction reported. Sagittal, coronal, and MIP oblique sagittal reformatted images were obtained on the CT workstation, uploaded to PACS, and reviewed. Total exam dose-length product 251.38 mGy-cm. FINDINGS: QUALITY OF STUDY/CONTRAST BOLUS: Satisfactory PULMONARY ARTERIES: No central or segmental pulmonary emboli. 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 At the aortic hiatus the aorta measures 3.6 cm transverse. At the mid descending thoracic aorta at the aorta measures 3.5 cm transverse. The aorta in the upper abdomen below the diaphragm is also aneurysmal measuring 3.6 cm transverse. There are coronary artery calcifications. There is atherosclerotic vascular wall calcification of aorta and the origin of the great vessels. LUNG: Pain emphysematous changes of lungs. Focal infiltrate with consolidation in the left upper lobe, lingula. No infiltrate in right lung. No bronchiectasis. Central bronchial airways are open. The few previously identified subcentimeter nodules the lung bases are stable. Largest measuring about 5 mm, axial image 44 (3). PLEURA: No pleural effusion or pneumothorax. MEDIASTINUM: Normal heart size. No pericardial effusion. No hilar or mediastinal lymphadenopathy. No evidence of septal bowing or right heart strain. CHEST WALL/AXILLA: No axillary or internal mammary lymphadenopathy. OSSEOUS STRUCTURES: Degenerative spondylosis of dorsal spine with multilevel endplate spurring of the vertebrae. UPPER ABDOMEN: There is a renal cyst at the upper pole the right kidney measuring 6 cm transverse. No reflux of contrast into the hepatic veins to suggest elevated right heart pressures. IMPRESSION: 1. No evidence of pulmonary embolism. 2. Aneurysm of the descending aorta. 3. Emphysematous changes of lung. Stable small bibasilar lung nodules largest measuring 5 mm. 4. Dense consolidation left upper lobe and lingula. VTE: negative DICTATED BY: Jacky Stewart MD DATE/TIME DICTATED:06/29/171907 JAVA PROGRAMMING PROFESSOR:VICKI DATE/TIME TRANSCRIBED:06/29/171907 CONFIDENTIAL, DO NOT COPY WITHOUT APPROPRIATE AUTHORIZATION. <Electronically signed in Other Vend (Rayshawn Rawls) Departure Departure Disposition: STILL A PATIENT Condition: Stable Clinical Impression Primary Impression: Pneumonia Secondary Impressions: CHAYO (acute kidney injury), COPD exacerbation, Leukocytosis Referrals: Gabriella Kitchen DO (PCP/Family) Departure Forms: Customer Survey General Discharge Information Admission Note Spoke With: Tori Lindsay MD Documentation of Exam: Documentation of any treatments & extenuating circumstances including Concerns Regarding Discharge (functional status, medication knowledge or non-compliance, living conditions, etc.) that warrant an admission rather than observation: [ Patient requires repeated nebulizer treatments, IV steroids, pulmonary consultation, IV antibiotics repeat blood work sputum blood cultures currently pending] (Rayshawn Rawls) PA/APPRENTICE PHOTOGRAPHER Co-Sign Statement Statement: ED Attending supervision documentation- x I saw and evaluated the patient. I have also reviewed all the pertinent lab results and diagnostic results. I agree with the findings and the plan of care as documented in the PA's/APPRENTICE PHOTOGRAPHER's documentation. weakness, sob, with pneumonia, hypoxia [] I have reviewed the ED Record and agree with the PA's/APPRENTICE PHOTOGRAPHER's documentation. [] Additions or exceptions (if any) to the PAs/APPRENTICE PHOTOGRAPHER's note and plan are summarized below: [] (Clement KAUR,Alf) Critical Care Note Critical Care Note Critical Care Time: non-applicable (Rayshawn Rawls)
[2017-06-29] MEDS ORDERED: SPIRIVA RESPIMAT4 GM INH (16:43)
[2017-06-29] MEDS ORDERED: CARDIZEM CD120 M2 PO (16:48)
[2017-06-29 17:13] LABS: ABSOLUTE BASOPHIL COUNT 0.1 /CUMM (0.0-0.2); ABSOLUTE EOSINOPHIL COUNT 0 /CUMM (0.0-0.7); ABSOLUTE GRANULOCYTE CT 23.4 /CUMM (1.4-6.5); ABSOLUTE LYMPH COUNT 1.7 /CUMM (1.2-3.4); ABSOLUTE MONOCYTE COUNT 0.6 /CUMM (0.10-0.60); BASOPHIL % 0.4 % (0.0-2.0); EOSINOPHIL % 0.1 % (0-5); GRANULOCYTE % 90.6 % (42.2-75.2); HEMATOCRIT 42.9 % (37-47); MEAN CORPUSCULAR HGB 26.7 PG (27.0-31.0); MEAN CORPUSCULAR VOLUME 80.7 FL (81.0-99.0); MEAN PLATELET VOLUME 7.2 FL (7.4-10.4); PLATELET COUNT 376 /CUMM (130-400); RED BLOOD CELL CT 5.32 /CUMM (4.20-5.40); WHITE BLOOD CELL COUNT 25.8 /CUMM (4.8-10.8)
--- NOTE | 2017-06-29 19:17 | CT SCAN REPORT ---
EXAMINATION: CT ANGIOGRAM OF THE CHEST WITH AND WITHOUT CONTRAST (CT PULMONARY ANGIOGRAM FOR PE) CLINICAL INFORMATION: CHEST PAIN, ELEVATED DIMER COMPARISON: CT chest 12/26/2016. Chest x-ray 03/23/2017 TECHNIQUE: Prior to contrast administration, noncontrast localization images were obtained. Subsequently, multidetector volumetric imaging was performed from the thoracic inlet to below the diaphragms following the administration of 74 mL Optiray 350 intravenous contrast. No contrast reaction reported. Sagittal, coronal, and MIP oblique sagittal reformatted images were obtained on the CT workstation, uploaded to PACS, and reviewed. Total exam dose-length product 251.38 mGy-cm. FINDINGS: QUALITY OF STUDY/CONTRAST BOLUS: Satisfactory PULMONARY ARTERIES: No central or segmental pulmonary emboli. 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 At the aortic hiatus the aorta measures 3.6 cm transverse. At the mid descending thoracic aorta at the aorta measures 3.5 cm transverse. The aorta in the upper abdomen below the diaphragm is also aneurysmal measuring 3.6 cm transverse. There are coronary artery calcifications. There is atherosclerotic vascular wall calcification of aorta and the origin of the great vessels. LUNG: Pain emphysematous changes of lungs. Focal infiltrate with consolidation in the left upper lobe, lingula. No infiltrate in right lung. No bronchiectasis. Central bronchial airways are open. The few previously identified subcentimeter nodules the lung bases are stable. Largest measuring about 5 mm, axial image 44 (3). PLEURA: No pleural effusion or pneumothorax. MEDIASTINUM: Normal heart size. No pericardial effusion. No hilar or mediastinal lymphadenopathy. No evidence of septal bowing or right heart strain. CHEST WALL/AXILLA: No axillary or internal mammary lymphadenopathy. OSSEOUS STRUCTURES: Degenerative spondylosis of dorsal spine with multilevel endplate spurring of the vertebrae. UPPER ABDOMEN: There is a renal cyst at the upper pole the right kidney measuring 6 cm transverse. No reflux of contrast into the hepatic veins to suggest elevated right heart pressures. IMPRESSION: 1. No evidence of pulmonary embolism. 2. Aneurysm of the descending aorta. 3. Emphysematous changes of lung. Stable small bibasilar lung nodules largest measuring 5 mm. 4. Dense consolidation left upper lobe and lingula. VTE: negative
--- NOTE | 2017-06-29 20:24 | History & Physical ---
Renee Gil MD 06/29/172023: General Information and HPI MD Statement: I have seen and personally examined EROS BARNEY and documented this H&P. The patient is a 77 year old F who presented with a patient stated chief complaint of [left Rib pain]. 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 The patient presented to [facility] on 06/29 with complaint of left-sided pain under her ribs. The patient has been experiencing shortness of breath for past few days, her block trimmer Dr. Torres started her on prednisone taper. Today was the last day of her steroid taper. Patient reports feeling left-sided pain under her ribs worse with coughing and deep breathing, since last night. Patient reports chills, feeling hot and cold, shortness of breath, clear phlegm production. Patient contacted Dr. Torres who advised her to visit [facility]. No sick contacts. Patient continues to smoke 1 pack in 2 days. She has never been intubated. Her last admission for COPD exacerbation was about one year ago. She is up to date with flu and pneumonia shots. Patient follows up with Dr. Winston. Underwent cardiac catheterization 1 week ago NO blockage was found. patient has history of aneurysm descending thoracic aorta with intraluminal thrombus; found on last admission. It is stable and currently in no intervention is required vascular surgery was contacted in the ED. Patient has history of pancreatitis cancer and was previously on Gleevac. She has been off that for past 6 months and currently follows up with Dr. Hayes for MRIs every 3 months. Allergies/Medications Allergies: Coded Allergies: No Known Drug Allergies (08/07/16) Home Med list Albuterol Sulfate 2.5 MG/0.5 ML VIAL.NEB 1 PUFF INH 4XDAILY PRN COPD ( Reported) Clopidogrel Bisulfate (Clopidogrel) 75 MG TABLET 1 TAB PO DAILY HEART ( Reported) Diltiazem HCl (Cardizem Cd) 120 MG CAP.ER.24H 1 CAP PO DAILY HEART/BP ( Reported) Fluticasone/Salmeterol (Advair 250-50 Diskus) 250 MCG-50 MCG/DOSE BLST.W.DEV 1 PUFF PO BID COPD (Reported) Tiotropium [place] (Spiriva Respimat) (Unknown Strength) MIST.INHAL 2 PUFF INH DAILY COPD (Reported) Past History Travel History Traveled to [place] past 21 day No Medical History Neurological: NONE EENT: cataracts, LEFT EAR NENANA Cardiovascular: CAD, hyperlipidemia, CARDIAC STENTS Respiratory: COPD Gastrointestinal: PANCREATIC TUMOR CHOLECYSTECTOMY Hepatic: NONE Renal: nephrolithiasis Musculoskeletal: NONE Psychiatric: NONE Endocrine: NONE Blood Disorders: NONE Cancer(s): pancreatic cancer 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 Home Who Do You Live With? self Services at Home: Oxygen Primary Language: Mexican Smoking Status: Current Everyday Smoker ETOH Use: denies use Illicit Drug Use: denies illicit drug use Functional Ability ADLs Independent: dressing, eating, toileting, bathing. Ambulation: independent IADLs Independent: shopping, housework, finances, food prep, telephone, transportation , medication admin. Review of Systems Review of Systems Constitutional: Reports: chills. EENTM: Reports: no symptoms. Cardiovascular: Reports: chest pain. Denies: orthopena. Respiratory: Reports: cough, short of breath, sputum production. Denies: hemoptysis, stridor , wheezing. GI: Reports: no symptoms. Genitourinary: Reports: no symptoms. Musculoskeletal: Reports: no symptoms. Skin: Reports: no symptoms. Exam & Diagnostic Data Last 24 Hrs of Vital Signs/I&O Vital Signs Date Time Temp Pulse Resp B/P B/P Pulse O2 O2 Flow FiO2 Mean Ox Delivery Rate 06/29 2238 97.6 81 20 120/70 96 Nasal 2.0L Cannula 06/29 2223 Nasal 2.0L Cannula 06/29 2112 98.5 84 19 120/71 99 Nasal 2.0L Cannula 06/29 1836 97.6 85 20 111/74 99 Nasal 2.0L Cannula 06/29 1827 100 Nasal 2.0L Cannula 06/29 1824 98 Nasal 2.5L Cannula 06/29 1601 97.7 110 20 101/67 95 Room Air 06/29 1441 99.7 111 20 130/76 Room Air Intake & Output 06/29 1600 06/29 0800 06/29 0000 Intake Total Output Total Balance Patient 122 lb Weight Weight Estimated Measurement Method Physical Exam General Appearance Alert, Oriented X3, Cooperative Skin No Rashes HEENT Atraumatic, dry lips Neck Supple, No JVD Lymphatic Cervical nl Cardiovascular Normal S1, Normal S2 Lungs decreased breath sounds. no wheezes Abdomen Normal Bowel Sounds, Soft, No Tenderness Neurological Normal Speech Last 24 Hrs of Labs/Devin: Laboratory Tests 06/29/17 1700: Anion Gap 15, Estimated GFR 33 L, BUN/Creatinine Ratio 21.3, Glucose 100 H, Lactic Acid 1.2, Calcium 9.5, Total Bilirubin 1.2, AST 23, ALT 32, Alkaline Phosphatase 102, Troponin I 0.09, Total Protein 6.4, Albumin 3.9, Globulin 2.5, Albumin/Globulin Ratio 1.6, D-Dimer High Sensitivty 1216 H, CBC w Diff MAN DIFF ORDERED, RBC 5.32, MCV 80.7 L, MCH 26.7 L, RDW 16.0 H, MPV 7.2 L, Gran % 90.6 H, Lymphocytes % 6.7 L, Monocytes % 2.2, Eosinophils % 0.1, Basophils % 0.4, Absolute Granulocytes 23.4 H, Segmented Neutrophils 77 H, Band Neutrophils 8 H, Absolute Lymphocytes 1.7, Lymphocytes 10 L, Monocytes 5, Absolute Monocytes 0.6, Absolute Eosinophils 0, Absolute Basophils 0.1, Platelet Estimate ADEQUATE, Poikilocytosis 1+, Anisocytosis 1+, Microcytic Cells 1+, Stomatocytes 1+, PUBS MCHC 33.0 Microbiology 06/29 2042 URINE ROUT: Legionella Antigen - ORD 06/29 2042 URINE ROUT: Streptococcus pneumoniae Antigen (M - ORD 06/29 1814 BLOOD: Blood Culture - RECD 06/29 1810 NASOPHARYN: Influenza Virus A & B Rapid Smear - COMP 06/29 1809 BLOOD: Blood Culture - RECD 06/29 1755 LOWER RESP: Respiratory Culture - ORD 06/29 1755 LOWER RESP: Gram Stain - ORD Diagnostic Data EKG Results sinus tachycardia Other Results CTA IMPRESSION: 1. No evidence of pulmonary embolism. 2. Aneurysm of the descending aorta. 3. Emphysematous changes of lung. Stable small bibasilar lung nodules largest measuring 5 mm. 4. Dense consolidation left upper lobe and lingula. 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 The patient presented to [facility] on 06/29 with complaint of left-sided pain under her ribs. -VS MAXIMUM TEMPERATURE 99.7, HR 111, RR20, oxygen saturation 95% on room air -Pertinent labs WBC count 25.8 bands 8, BUN 32, creatinine 1.5 baseline 1.1-1.0 d-dimer 1216 -CTA findings dictated above In ED patient received 2 L of normal saline, 125mg Solu-Medrol, IV azithromycin and IV Rocephin nebulization and morphine for pain. Pancultures were also sent along with urinary strep and Legionella antigen She is being admitted to the general medicine floor and is being treated and evaluated for following conditions #Sepsis likely secondary to community-acquired pneumonia and COPD exacerbation Patient is coming with chills shortness of breath. She was put on 2 L of oxygen for comfort in ED. She recently finished her steroid taper. CTA positive for dense consolidation in lingula and left upper lobe negative for pulmonary embolism. Meets SIRS criteria with elevated white count and bands, elevated heart rate. Suspicion of community-acquired pneumonia is high. Patient might have an underlying mild exacerbation of COPD because of the pneumonia -Monitor for fever and WBC curve -Follow-up pancultures -Follow-up urinary strep and Legionella antigen -Continue IV azithromycin and ceftriaxone -TRC/oxygen supplementation to maintain oxygen saturation above 92% -Continue Spiriva and Advair -IV methylprednisone 40mg Q8 -Pulm consult with #CHAYO patient is presenting with creatinine of 1.5 baseline is 1.1-1.0 likely secondary to sepsis and dehydration. Already received 2 L of normal saline in ER -Gentle IV hydration -Monitor cr curve -Avoid nephrotoxins # History of aneurysm descending thoracic aorta with intraluminal thrombus; found on last admission. It is stable -currently in no intervention is required vascular surgery was contacted in the ED. -Continue to monitor -Outpatient follow-up with vascular surgery #History of CVA the status post stent placement and recent cardiac catheterization -Continue Plavix #As per patient she is taking something for her heart likely Cardizem not sure will confirm from [facility] pharmacy in a.m. currently has closed. #DNR/DNI/heart healthy diet/DVT prophylaxis with heparins/q As Ranked By This Provider Problem List: 1. COPD exacerbation 2. Pneumonia 3. Leukocytosis 4. CHAYO (acute kidney injury) Core Measures/Misc (02/26) Acute Coronary Syndrome ACS Diagnosis: No Congestive Heart Failure Congestive Heart Failure Diagnosis No Cerebrovascular Accident CVA/TIA Diagnosis: No VTE (View Protocol) VTE Risk Factors Age>40 No Mechanical VTE Prophylaxis d/t N/A MechProphylax Ordered No VTE Pharm Prophylaxis d/t NA PharmProphylax ordered Sepsis (View protocol) Sepsis Present: Yes Thierno Jimenez 06/29/176: Resident Review Statement Resident Statement: discussed with editing intern Other Findings: 77-year-old woman with past medical history of severe COPD, nocturnal oxygen at home, history of pancreatic cancer now off Gleevac for last 6 months, coronary artery disease status post stent placement in 2007, stable 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 Pain is worse with coughing and taking deep breath. She has been having difficulty breathing and productive cough with clear phlegm for last few weeks. Her block trimmer, Dr. Torres ordered prednisone taper for her that she just finished yesterday. She reports having chills at home. Denies hemoptysis. Other review of systems negative. She is still smoking (finishes 1 pack in 3-4 days). Upon arrival to ER her temperature was 97.7, pulse 111, respiratory rate 20, blood pressure 1:30/76 and oxygen saturation 95% on room air. She was feeling short of breath so put on 2 L of oxygen for comfort. Pertinent physical exam findings: Dry mucous membranes. Lungs diminished breath sounds laterally. No wheezing, rhonchi or crackles. No pedal edema. Pertinent labs were WBC count 25.8 with 8 bands, BUN/creatinine 32/1.5 (baseline creatinine normal), d-dimer 1216 CTA chest was done that showed no evidence of PE, aneurysm of the descending aorta with intraluminal thrombus, small bibasilar lung nodules largest measuring 5 mm. Dense consolidation left upper lobe and lingula. In ER she was given respiratory treatment, 2 L bolus of normal saline, Solu- Medrol 125 mg 1, ceftriaxone 1 g 1, Zithromax 500 mg IV 1. Morphine and Motrin were given for pain. Blood cultures 2, sputum culture were obtained. Urinary antigens for Legionella and strep pneumonia were ordered. Rapid flu negative. Problem list 1. Sepsis secondary to community-acquired pneumonia 2. COPD exacerbation 3. CHAYO 4. Aneurysm of the descending thoracic aorta with intraluminal thrombus. stable PLAN * General medicine admission * Monitor vitals every shift * Keep oxygen saturation more than 92% * Continue TRC nebs * Continue steroids * Continue ceftriaxone and azithromycin * Follow-up blood and sputum cultures * Follow-up urinary antigens for Legionella and strep pneumonia * Pulm consult in am * Repeat kidney functions in a.m. * Gentle hydration * Avoid nephrotoxins * Pain management * DVT prophylaxis * DNR/DNI * Will confirm CMR from [facility] tomorrow morning. Not sure if taking diltiazem. Will hold right now and start after confirming tomorrow morning. 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 Torres for evaluation of gradually worsening dyspnea, productive cough and sudden onset left sided pleuritic chest pain worse with coughing and inspiration. C/o chills+. Patient reports her symptoms are ongoing for past few weeks, wherein Dr. Torres treated her with prednisone taper for bronchitis that she completed yesterday without much relief. She also underwent cardiac cath last week by Dr. Pak and was found to have 'no obstructive disease' per patient. Of note, patient is being followed by Dr. Rivera for GIST, she has been off Gleevec for past 5 months and is scheduled for repeat MRI in Jul 2017. Vitals stable, HR 90-110's, sats 96% on 2L. Exam: AAO, in mild respiratory distress but able to speak in full sentences, MMM, Neck supple, Chest b/l reduced air entry with scattered rhonchi L>R, Heart S1S2 regular. Labs: WBC 25.8 (on steroids), bands 8, D-dimer 1216, BUN 32, creat 1.5 (baseline 1.0-1.1), glucose 100, lactic acid 1.2, trop neg. EKG: Sinus tachyacrdia. CTA: no PE, but dense consolidation to left upper lobe and lingual. Emphysematous changes, small bibasilar lung nodules. Aneurysm of descending aorta with intraluminal thrombus. Echo (2017): EF > 65%, stage 1 diastolic dysfunction. Assessment and plan: 1. Sepsis 2. Community acquired pneumonia, left upper lobe 3. COPD exacerbation 4. Active smoker 5. CHAYO likely pre-renal 6. Aortic aneurysm with stable intraluminal thrombus 7. History of GIST - Admit to general medicine - Panculture - TRC nebs, incentive spirometry - IV ceftriaxone and azithro - IV solumedrol - IV fluids, monitor renal functions - Pulm consult (Dr. Torres) - Smoking cessation counseling - Repeat EKG and troponin in AM - Pain management with morphine - Outpatient follow up with Vascular for aortic aneurysm and thrombus. As per system configuration specialist vascular surgeon, no need for anticoagulation at this point. DVT ppx Hep SC. DNR/I.
[2017-06-29 22:00] VITALS: BP 99/62
[2017-06-29 22:39] VITALS: BP 120/70
--- NOTE | 2017-06-29 23:03 | Admission Certification ---
Admission Certification Certification Statement - As attending physician, I certify that at the time of - admission, based on clinical presentation, severity of - symptoms, need for further diagnostic testing and - therapeutic interventions, and risk of adverse outcomes - without in-hospital treatment, in my clinical assessment, - this patient requires an acute hospital stay for a minimum - of two nights or longer. I have also considered psychsocial - factors such as support system, advanced age, financial - issues, cognitive issues, and failed out-patient treatments, - past re-admission history, safety of patient, and lack of - compliance as applicable. Specific rationale supporting this admission is: Left sided community acquired pneumonia, Sepsis, COPD exacerbation.
[2017-06-30 07:11] VITALS: BP 104/61
[2017-06-30 08:19] LABS: ABSOLUTE BASOPHIL COUNT 0 /CUMM (0.0-0.2); ABSOLUTE EOSINOPHIL COUNT 0 /CUMM (0.0-0.7); ABSOLUTE GRANULOCYTE CT 27.3 /CUMM (1.4-6.5); ABSOLUTE LYMPH COUNT 0.5 /CUMM (1.2-3.4); ABSOLUTE MONOCYTE COUNT 0.3 /CUMM (0.10-0.60); BASOPHIL % 0 % (0.0-2.0); EOSINOPHIL % 0 % (0-5); GRANULOCYTE % 97.2 % (42.2-75.2); MEAN CORPUSCULAR HGB 27.8 PG (27.0-31.0); MEAN CORPUSCULAR HGB CONC 33.8 G/DL (33.0-37.0); MEAN PLATELET VOLUME 7.4 FL (7.4-10.4); PLATELET COUNT 299 /CUMM (130-400); RBC DISTRIBUTION WIDTH 15.8 % (11.5-14.5); RED BLOOD CELL CT 4.25 /CUMM (4.20-5.40); WHITE BLOOD CELL COUNT 28.1 /CUMM (4.8-10.8)
[2017-06-30 08:34] LABS: HEMATOCRIT 34.8 % (37-47)
--- NOTE | 2017-06-30 12:51 | PN- Housestaff ---
Ashvin KAUR,[facility] 06/30/17 1251: Subjective Follow-up For: pneumonia gram + sepsis Subjective: No acute events overnight. States she slept ok. Still on 2L of oxygen. States shse doesnt use O2 at baseline. Review of Systems Constitutional: Reports: no symptoms. Cardiovascular: Reports: no symptoms. Respiratory: Reports: short of breath. Gastrointestinal: Reports: no symptoms. Genitourinary: Reports: no symptoms. Musculoskeletal: Reports: no symptoms. Objective Last 24 Hrs of Vital Signs/I&O Vital Signs Date Time Temp Pulse Resp B/P B/P Pulse O2 O2 Flow FiO2 Mean Ox Delivery Rate 06/30 2141 98.2 87 19 120/68 96 Nasal 2.0L Cannula 06/30 1910 97 Nasal 2.0L Cannula 06/30 1600 96 Nasal 2.0L Cannula 06/30 1452 97.6 80 20 130/71 98 Nasal 2.0L Cannula 06/30 1345 Nasal 2.0L Cannula 06/30 0800 Nasal 2.0L Cannula 06/30 0711 97.7 77 20 104/61 99 Nasal 2.0L Cannula Intake & Output 06/30 1600 06/30 0800 06/30 0000 Intake Total 1300 1080 2370 Output Total 350 300 Balance 507 092 4518 Intake, IV 049 757 5482 Intake, Oral 700 480 120 Number 0 Bowel Movements Output, Urine 350 300 Patient 122 lb Weight Weight Bed scale Measurement Method Physical Exam General Appearance: Alert, Oriented X3, Cooperative, No Acute Distress Cardiovascular: Regular Rate, Normal S1, Normal S2 Lungs: decreased breath sounds diffuse expiratory wheezing Abdomen: Normal Bowel Sounds, Soft, No Tenderness Extremities: 2+ radial pulses Current Medications: Current Medications Sig/Mitch Start time Last Medication Dose Route Stop Time Status Admin Acetaminophen 650 MG Q8P PRN 06/29 204 AC PO Albuterol Sulfate 3 ML TID 06/30 2199 AC 06/30 INH 1907 Albuterol Sulfate 3 ML Q4H PRN 06/29 2200 DC 06/30 INH 1346 Azithromycin 500 MG DAILY 06/30 1000 AC 06/30 Dextrose/Water 250 ML IV 0914 Budesonide/ 1 PUF BID 06/29 2199 AC 06/30 Formoterol Fumarate INH 2120 Ceftriaxone Sodium 1,000 MG DAILY 06/30 1000 AC 06/30 IV 0914 Clopidogrel Bisulfate 75 MG DAILY 06/30 1000 AC 06/30 PO 0913 Heparin Sodium 5,000 UNIT Q8 06/29 2300 AC (Porcine) SC Ipratropium [place] 2.5 ML TID 06/30 2199 AC 06/30 INH 1907 Ipratropium [place] 2.5 ML Q4 HRS NEEDED PRN 06/29 220 DC 06/30 INH 1346 Methylprednisolone 40 MG Q12 06/30 220 AC 06/30 IV 2120 Methylprednisolone 40 MG Q8 06/30 0600 DC 06/30 IV 1304 Morphine Sulfate 2 MG Q6P PRN 06/29 214 AC 06/30 IV 2215 Sodium Chloride 1,000 ML Q13H 06/29 214 DC 06/29 IV 06/30 1044 2236 Last 24 Hrs of Lab/Devin Results Last 24 Hrs of Labs/Mics: Laboratory Tests 06/30/17 1423: Troponin I 0.02 06/30/17 0721: Troponin I Cancelled 06/30/17 0721: Anion Gap 12, Estimated GFR > 60, BUN/Creatinine Ratio 27.8 H, Troponin I 0.03, CBC w Diff MAN DIFF ORDERED, RBC 4.25, MCV 82.0, MCH 27.8, RDW 15.8 H, MPV 7.4, Gran % 97.2 H, Lymphocytes % 1.8 L, Monocytes % 1.0 L, Eosinophils % 0, Basophils % 0, Absolute Granulocytes 27.3 H, Segmented Neutrophils 98 H, Band Neutrophils 2, Absolute Lymphocytes 0.5 L, Absolute Monocytes 0.3, Absolute Eosinophils 0, Absolute Basophils 0, Platelet Estimate VERIFIED BY SMEAR, Normocytic RBCs VERIFIED, Normochromic RBCs VERIFIED, PUBS MCHC 33.8 Microbiology 06/30 2049 URINE ROUT: Legionella Antigen - COMP 06/30 2049 URINE ROUT: Streptococcus pneumoniae Antigen (M - COMP 06/30 1930 LOWER RESP: Respiratory Culture - COLB 06/30 1930 LOWER RESP: Gram Stain - COLB 06/30 919 URINE ROUT: Urine Culture - RECD Assessment/Plan Assessment: A: 77-year-old female with past medical history of COPD and uses oxygen when necessary at night, CAD status post stent placement 2007 underwent repeat cardiac catheterization 1 week ago, pancreatic cancer and 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 Suspicion of community-acquired pneumonia is high. Patient might have an underlying mild exacerbation of COPD because of the pneumonia. Flu urinary strep and Legionella antigen negative. CTA: positive for dense consolidation in lingula and left upper lobe negative for pulmonary embolism. WBC 25.8 w/ 8 bands -> 28.1 w/ 2 bands Blood cx positive x2 for gram + cocci -cont ceftriaxone/azithro. -if wbc does not improve, contact ID for consult -Follow-up pancultures -Continue IV azithromycin and ceftriaxone -TRC/oxygen supplementation to maintain oxygen saturation above 92% -Continue Spiriva and Advair -IV methylprednisone 40mg Q12 #CHAYO - resolved Received 2 L of normal saline in ER Cr 1.5 -> .9 (baseline 1.0) -encourage po intake, monitor cr -Avoid nephrotoxins # History of aneurysm descending thoracic aorta with intraluminal thrombus; found on last admission. It is stable -informed Dr. Winston's service as a courtesy call that the patient was admitted -currently no intervention is required vascular surgery was contacted in the ED. -Outpatient follow-up with vascular surgery #History of CVA the status post stent placement and recent cardiac catheterization -Continue Plavix #medication confirmation Patient taking Cardizem but unsure of dose, will confirm in AM -confirm diltiazem dose and restart #DNR/DNI/heart healthy diet/DVT prophylaxis with heparins/q Problem List: 1. Pneumonia 2. Positive blood cultures Pain Ratin Pain Location: L chest Pain Goal: Pain 4 or less Pain Plan: pain pathway Tomorrow's Labs & Rationales: cbc bep Ricardo Bojorquez 06/30/17 1332: Attending MD Review Statement Attending Statement Attending MD Statement: examined this patient, discuss w/resident/PA/CERTIFIED PROFESSIONAL MIDWIFE, agreed w/resident/PA/CERTIFIED PROFESSIONAL MIDWIFE, discussed with family, reviewed EMR data (avail), discussed with nursing, discussed with case mgmt, reviewed images, amended to note Attending Assessment/Plan: Patient seen/examined bedside. Patient is on 2l oxygen supplementation with mild use of accissory muscles. Patient WBC 28 today, afebrile overnight. Respiratory rate acceptable. Assessment and plan: 1. Sepsis 2. Community acquired pneumonia, left upper lobe 3. COPD exacerbation 4. Tobacco abuse 5. CHAYO likely pre-renal improved 6. Aortic aneurysm with stable intraluminal thrombus 7. History of GIST off gleevec for past few months - f/u Panculture - TRC nebs, incentive spirometry - IV abx, IV fluids, monitor renal functions - f/u pulmonary. - Smoking cessation counseling - Outpatient follow up with Vascular for aortic aneurysm and thrombus on plavix. DNR/DNI.
--- NOTE | 2017-06-30 12:52 | Cons- Pulmonary ---
General Information and HPI Consulting Request Date of Consult: 06/30/17 Requested By: Dr. Bojorquez Reason for Consult: pneumonia Source of Information: patient Exam Limitations: no limitations History of Present Illness: 77 year old woman. Sent to ER with left sided chest discomfort. CTA performed showing aneurysm of the descending aorta, emphysema, 5mm lung nodule(s). TONIA and lingular infiltrate. WBC 28.1, afebrile. Started on ceftriaxone, zithromax. Blood cultures GPCs (2 sets). Severe Emphysema on PFTs. Yellow phlegm. No fevers, no chills. Family with URI like symptoms. Intermittent wheezing, recent steroid use. + wheezing. Current smoker with PMHx of COPD on Spiriva, Advair, ProAir for rescue and nebulizer therapy as needed, nocturnal O2. Previously was under the care of Dr. Lizama in [place] for about 5 years. Past Hx. 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 Patient is compliant with her current medications. Uses appropriate technique. Allergies/Medications Allergies: Coded Allergies: No Known Drug Allergies (08/07/16) Home Med List: Albuterol Sulfate 2.5 MG/0.5 ML VIAL.NEB 1 PUFF INH 4XDAILY PRN COPD ( Reported) Clopidogrel Bisulfate (Clopidogrel) 75 MG TABLET 1 TAB PO DAILY HEART ( Reported) Diltiazem HCl (Cardizem Cd) 120 MG CAP.ER.24H 1 CAP PO DAILY HEART/BP ( Reported) Fluticasone/Salmeterol (Advair 250-50 Diskus) 250 MCG-50 MCG/DOSE BLST.W.DEV 1 PUFF PO BID COPD (Reported) Tiotropium [place] (Spiriva Respimat) (Unknown Strength) MIST.INHAL 2 PUFF INH DAILY COPD (Reported) Current Medications: Current Medications Sig/Mitch Start time Last Medication Dose Route Stop Time Status Admin Acetaminophen 650 MG Q8P PRN 06/29 2045 AC PO Albuterol Sulfate 3 ML TID 06/30 2200 AC INH Albuterol Sulfate 3 ML Q4H PRN 06/29 2200 DC 06/30 INH 1346 Albuterol Sulfate 3 ML ONCE ONE 06/29 1815 DC 06/29 INH 06/29 1816 1820 Azithromycin 500 MG DAILY 06/30 1000 AC 06/30 Dextrose/Water 250 ML IV 0914 Azithromycin 500 MG ONCE ONE 06/29 1830 DC 06/29 Sodium Chloride 250 ML IV 06/29 1929 1921 Budesonide/ 1 PUF BID 06/29 2200 AC 06/30 Formoterol Fumarate INH 1030 Ceftriaxone Sodium 1,000 MG DAILY 06/30 1000 AC 06/30 IV 0914 Ceftriaxone Sodium 0 .STK-MED ONE 06/29 2011 DC .ROUTE Ceftriaxone Sodium 1,000 MG ONCE ONE 06/29 1930 DC 06/29 IV 06/29 193 2049 Clopidogrel Bisulfate 75 MG DAILY 06/30 1000 AC 06/30 PO 0913 Heparin Sodium 5,000 UNIT Q8 06/29 2300 AC (Porcine) SC Ipratropium [place] 2.5 ML TID 06/30 2200 AC INH Ipratropium [place] 2.5 ML Q4 HRS NEEDED PRN 06/29 2200 DC 06/30 INH 1346 Ipratropium [place] 2.5 ML ONCE ONE 06/29 1815 DC 06/29 INH 06/29 1816 1820 Methylprednisolone 40 MG Q8 06/30 0600 AC 06/30 IV 1304 Methylprednisolone 0 .STK-MED ONE 06/29 1822 DC .ROUTE Methylprednisolone 125 MG ONCE ONE 06/29 1815 DC 06/29 IV 06/29 1816 1828 Morphine Sulfate 2 MG Q6P PRN 06/29 2145 AC 06/29 IV 2249 Morphine Sulfate 0 .STK-MED ONE 06/29 1819 DC .ROUTE Morphine Sulfate 4 MG ONCE ONE 06/29 1815 DC 06/29 IV 06/29 1816 1828 Sodium Chloride 1,000 ML Q13H 06/29 2145 DC 06/29 IV 06/30 1044 2236 Sodium Chloride 1,000 ML BOLUS ONE 06/29 1745 DC 06/29 IV 06/29 1844 1753 Sodium Chloride 1,000 ML BOLUS ONE 06/29 1745 DC 06/29 IV 06/29 1844 1921 Review of Systems Comments 18 point review of systems was performed and reviewed. Please see pertinent positives and pertinent negatives in the HPI. Otherwise ROS is negative. 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 Home Who Do You Live With? self Services at Home: Oxygen Primary Language: Palestinian Smoking Status: Current Everyday Smoker ETOH Use: denies use Illicit Drug Use: denies illicit drug use Functional Ability ADLs Independent: dressing, eating, toileting, bathing. Ambulation: independent IADLs Independent: shopping, housework, finances, food prep, telephone, transportation , medication admin. Exam & Diagnostic Data Last 24 Hrs of Vital Signs/I&O Vital Signs Date Time Temp Pulse Resp B/P B/P Pulse O2 O2 Flow FiO2 Mean Ox Delivery Rate 06/30 1452 97.6 80 20 130/71 98 Nasal 2.0L Cannula 06/30 1345 Nasal 2.0L Cannula 06/30 0800 Nasal 2.0L Cannula 06/30 0711 97.7 77 20 104/61 99 Nasal 2.0L Cannula 06/29 2239 97.6 81 20 120/70 96 Nasal 2.0L Cannula 06/29 2224 Nasal 2.0L Cannula 06/29 2200 97.6 78 20 99/62 98 Nasal 2.0L Cannula 06/29 2113 98.5 84 19 120/71 99 Nasal 2.0L Cannula 06/29 1836 97.6 85 20 111/74 99 Nasal 2.0L Cannula 06/29 1827 100 Nasal 2.0L Cannula 06/29 1824 98 Nasal 2.5L Cannula 06/29 1601 97.7 110 20 101/67 95 Room Air Intake & Output 06/30 1600 06/30 0800 06/30 0000 Intake Total 1300 1080 2370 Output Total 350 300 Balance 719 892 5712 Intake, IV 740 422 0804 Intake, Oral 700 480 120 Number 0 Bowel Movements Output, Urine 350 300 Patient 122 lb Weight Weight Bed scale Measurement Method Physical Exam Other Physical Findings: Generally - Awake, alert and comfortable without distress Head and neck - normocephalic, atraumatic, EOMI grossly intact Cardiovascular - S1, S2, no murmurs, rubs or gallops Lungs - reduced breath sounds on left, some egophany, rhonchi Abdomen - Bowel sounds positive, soft, non-tender Extremities - without edema Last 48 Hrs of Labs/Devin: Laboratory Tests 06/30/17 1423: Troponin I 0.02 06/30/17 0721: Troponin I Cancelled 06/30/17 0721: Anion Gap 12, Estimated GFR > 60, BUN/Creatinine Ratio 27.8 H, Troponin I 0.03, CBC w Diff MAN DIFF ORDERED, RBC 4.25, MCV 82.0, MCH 27.8, RDW 15.8 H, MPV 7.4, Gran % 97.2 H, Lymphocytes % 1.8 L, Monocytes % 1.0 L, Eosinophils % 0, Basophils % 0, Absolute Granulocytes 27.3 H, Segmented Neutrophils 98 H, Band Neutrophils 2, Absolute Lymphocytes 0.5 L, Absolute Monocytes 0.3, Absolute Eosinophils 0, Absolute Basophils 0, Platelet Estimate VERIFIED BY SMEAR, Normocytic RBCs VERIFIED, Normochromic RBCs VERIFIED, PUBS MCHC 33.8 06/29/17 1700: Anion Gap 15, Estimated GFR 33 L, BUN/Creatinine Ratio 21.3, Glucose 100 H, Lactic Acid 1.2, Calcium 9.5, Total Bilirubin 1.2, AST 23, ALT 32, Alkaline Phosphatase 102, Troponin I 0.09, Total Protein 6.4, Albumin 3.9, Globulin 2.5, Albumin/Globulin Ratio 1.6, D-Dimer High Sensitivty 1216 H, CBC w Diff MAN DIFF ORDERED, RBC 5.32, MCV 80.7 L, MCH 26.7 L, RDW 16.0 H, MPV 7.2 L, Gran % 90.6 H, Lymphocytes % 6.7 L, Monocytes % 2.2, Eosinophils % 0.1, Basophils % 0.4, Absolute Granulocytes 23.4 H, Segmented Neutrophils 77 H, Band Neutrophils 8 H, Absolute Lymphocytes 1.7, Lymphocytes 10 L, Monocytes 5, Absolute Monocytes 0.6, Absolute Eosinophils 0, Absolute Basophils 0.1, Platelet Estimate ADEQUATE, Poikilocytosis 1+, Anisocytosis 1+, Microcytic Cells 1+, Stomatocytes 1+, PUBS MCHC 33.0 Microbiology 06/29 1810 NASOPHARYN: Influenza Virus A & B Rapid Smear - COMP Assessment/Plan Impression/Plan: 77 year old woman. Sent to ER with left sided chest discomfort. CTA performed showing aneurysm of the descending aorta, emphysema, 5mm lung nodule(s). TONIA and lingular infiltrate. WBC 28.1, afebrile. Started on ceftriaxone, zithromax. Blood cultures GPCs (2 sets). Severe Emphysema on PFTs. Yellow phlegm. No fevers, no chills. Family with URI like symptoms. Intermittent wheezing, recent steroid use. + wheezing. Current smoker with PMHx of COPD on Spiriva, Advair, ProAir for rescue and nebulizer therapy as needed, nocturnal O2. Previously was under the care of Dr. iLzama in [place] for about 5 years. Past Hx. 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 Patient is compliant with her current medications. Uses appropriate technique. Impression 77 year old woma community acquired pneumonia COPD Plan -ceftriaxone, zithromax -f/u all cultures -ensure legionella/strep ag sent, sputum cx -trc/nebs -monito leukocytosis -reduce solumedrol to 40mg iv q12h -aneurysm per cardiology/vascular DVT prophylaxis at all times Consult Acknowledgment - Thank you for your consult request.
--- NOTE | 2017-06-30 14:45 | Patient Discharge Instructions ---
Discharge Instructions General Discharge Information Special Instructions: Please follow up with your pcp in 1-2 weeks. Please follow up with your sql engineer in 1 -2 weeks. Please follow up with your vascular surgeon as regularly scheduled. Please continue your medications as perscribed. Please return to the hospital for any worsening symptoms or concerns. Acute Coronary Syndrome Inclusion Criteria At DC or during hospital stay patient has or had the following: ACS DIAGNOSIS No Discharge Core Measures Meds if any: Prescribed or Continued at Discharge Meds if any: NOT Prescribed or Continued at Discharge Congestive Heart Failure Inclusion Criteria At DC or during hospital stay patient has or had the following: CHF DIAGNOSIS No Discharge Core Measures Meds if any: Prescribed or Continued at Discharge Meds if any: NOT Prescribed or Continued at Discharge Cerebrovascular accident Inclusion Criteria At DC or during hospital stay patient has or had the following: CVA/TIA Diagnosis No Discharge Core Measures Meds if any: Prescribed or Continued at Discharge Meds if any: NOT Prescribed or Continued at Discharge Venous thromboembolism Inclusion Criteria VTE Diagnosis No VTE Type NONE VTE Confirmed by (Test) CT CHEST ANGIOGRAM Discharge Core Measures - Per Current guidelines, there needs to be overlap - treatment for the first 5 days of Warfarin therapy. - If discharged on Warfarin prior to 5 days of - overlap therapy, the patient will need to be - assessed for post discharge needs including - *Post discharge parental anticoagulation - *Warfarin and/or parental anticoagulation education - *Follow up date to check INR post discharge At least 5 days overlap therapy as Inpatient No Meds if any: Prescribed or Continued at Discharge Note: Overlap Therapy is Warfarin and Anticoagulant Meds if any: NOT Prescribed or Continued at Discharge
[2017-06-30 14:52] VITALS: BP 130/71
[2017-06-30 21:41] VITALS: BP 120/68
[2017-07-01 07:07] VITALS: BP 124/60
[2017-07-01 08:28] LABS: ABSOLUTE BASOPHIL COUNT 0 /CUMM (0.0-0.2); ABSOLUTE EOSINOPHIL COUNT 0 /CUMM (0.0-0.7); ABSOLUTE GRANULOCYTE CT 20.4 /CUMM (1.4-6.5); ABSOLUTE LYMPH COUNT 0.4 /CUMM (1.2-3.4); ABSOLUTE MONOCYTE COUNT 0.2 /CUMM (0.10-0.60); BASOPHIL % 0 % (0.0-2.0); EOSINOPHIL % 0 % (0-5); HEMATOCRIT 31.7 % (37-47); MEAN CORPUSCULAR VOLUME 82.1 FL (81.0-99.0); MEAN PLATELET VOLUME 7.6 FL (7.4-10.4); PLATELET COUNT 280 /CUMM (130-400); RBC DISTRIBUTION WIDTH 16.4 % (11.5-14.5); RED BLOOD CELL CT 3.86 /CUMM (4.20-5.40)
--- NOTE | 2017-07-01 08:54 | PN- Housestaff ---
Alethea KAUR,Sarah 07/01/17 0854: Subjective Follow-up For: pneumonia gram + sepsis Subjective: no events overnight. patient continues to be saturating high 90's on 2L. has no complaints. Review of Systems Constitutional: Reports: weakness. Respiratory: Reports: cough. Gastrointestinal: Reports: no symptoms. Objective Last 24 Hrs of Vital Signs/I&O Vital Signs Date Time Temp Pulse Resp B/P B/P Pulse O2 O2 Flow FiO2 Mean Ox Delivery Rate 07/01 2327 97.7 74 20 114/58 99 Nasal 2.0L Cannula 07/01 1950 96 Nasal 2.0L Cannula 07/01 1338 98.2 72 20 120/60 98 Nasal 2.0L Cannula 07/01 0921 97 Nasal 2.0L Cannula 07/01 0800 92 Nasal 2.0L Cannula 07/01 0707 97.8 79 20 124/60 97 Intake & Output 07/02 0800 07/02 0000 07/01 1600 Intake Total 550 920 Output Total 300 Balance 250 920 Intake, IV 300 Intake, Oral 550 620 Number 0 Bowel Movements Output, Urine 300 Physical Exam General Appearance: Alert, Oriented X3, Cooperative, No Acute Distress HEENT: Atraumatic Cardiovascular: Regular Rate, Normal S1, Normal S2, No Murmurs Lungs: Clear to Auscultation Abdomen: Normal Bowel Sounds, Soft, No Tenderness Current Medications: Current Medications Sig/Mitch Start time Last Medication Dose Route Stop Time Status Admin Acetaminophen 650 MG .STK-MED ONE 07/01 1129 DC PO 07/01 1130 Acetaminophen 650 MG Q8P PRN 06/29 2044 AC 07/01 PO 210 Albuterol Sulfate 3 ML TID 06/30 2199 AC 07/01 INH 1950 Azithromycin 500 MG DAILY 06/30 1000 AC 07/01 Dextrose/Water 250 ML IV 0832 Budesonide/ 1 PUF BID 06/29 2199 AC 07/01 Formoterol Fumarate INH 2110 Calcium Carbonate 500 MG DAILY 07/01 2054 AC 07/01 PO 2107 Ceftriaxone Sodium 1,000 MG DAILY 06/30 1000 AC 07/01 IV 0832 Clopidogrel Bisulfate 75 MG DAILY 06/30 1000 AC 07/01 PO 0834 Diltiazem HCl 120 MG DAILY 06/30 2330 AC 07/01 PO 0834 Heparin Sodium 5,000 UNIT Q8 06/29 2300 AC (Porcine) SC Ipratropium [place] 2.5 ML TID 06/30 2199 AC 07/01 INH 1949 Methylprednisolone 40 MG Q12 06/30 2199 AC 07/01 IV 2107 Morphine Sulfate 2 MG Q6P PRN 06/29 2144 AC 06/30 IV 2214 Last 24 Hrs of Lab/Devin Results Last 24 Hrs of Labs/Mics: Laboratory Tests 07/01/17 0630: Anion Gap 13, Estimated GFR > 60, BUN/Creatinine Ratio 30.0 H, CBC w Diff MAN DIFF ORDERED, RBC 3.86 L, MCV 82.1, MCH 27.0, RDW 16.4 H, MPV 7.6, Gran % 97.0 H, Lymphocytes % 1.8 L, Monocytes % 1.2 L, Eosinophils % 0, Basophils % 0, Absolute Granulocytes 20.4 H, Segmented Neutrophils 95 H, Band Neutrophils 4, Absolute Lymphocytes 0.4 L, Lymphocytes 1 L, Absolute Monocytes 0.2, Absolute Eosinophils 0, Absolute Basophils 0, Platelet Estimate ADEQUATE, Hypochromic- Microcytic 1+, Poikilocytosis 1+, Anisocytosis 1+, Ovalocytes 1+, PUBS MCHC 33.0 Assessment/Plan Assessment: A: 77-year-old female with past medical history of COPD and uses oxygen when necessary at night, CAD status post stent placement 2007 underwent repeat cardiac catheterization 1 week ago, pancreatic cancer and 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 Suspicion of community-acquired pneumonia is high. Patient might have an underlying mild exacerbation of COPD because of the pneumonia. Flu urinary strep and Legionella antigen negative. CTA: positive for dense consolidation in lingula and left upper lobe negative for pulmonary embolism. WBC 28.1 -> 21 Blood cx positive x2 for gram + cocci in pairs and chains. -cont ceftriaxone/azithro. -if wbc does not improve, contact ID for consult -Follow-up pancultures -Continue IV azithromycin and ceftriaxone -TRC/oxygen supplementation to maintain oxygen saturation above 92% -Continue Spiriva and Advair -IV methylprednisone 40mg Q12. change to PO and taper. -Incentive Spirometry #CHAYO - resolved Received 2 L of normal saline in ER Cr 1.5 -> .9 (baseline 1.0) -encourage po intake, monitor cr -Avoid nephrotoxins # History of aneurysm descending thoracic aorta with intraluminal thrombus; found on last admission. It is stable -informed Dr. Winston's service as a courtesy call that the patient was admitted -currently no intervention is required vascular surgery was contacted in the ED. -Outpatient follow-up with vascular surgery FOR AA AND THROMBUS ON PLAVIX. #History of CVA the status post stent placement and recent cardiac catheterization -Continue Plavix #medication confirmation Patient taking Cardizem but unsure of dose, will confirm in AM -confirm diltiazem dose and restart #DNR/DNI/heart healthy diet/DVT prophylaxis with heparins/q Problem List: 1. Positive blood cultures 2. CHAYO (acute kidney injury) 3. Pneumonia 4. Leukocytosis Pain Ratin Pain Location: left chest more on inspiration Pain Goal: Pain 4 or less Pain Plan: pathway Tomorrow's Labs & Rationales: cbc bep Ricardo Bojorquez 07/01/17 1313: Attending MD Review Statement Attending Statement Attending MD Statement: examined this patient, discuss w/resident/PA/HEAD START COORDINATOR, agreed w/resident/PA/HEAD START COORDINATOR, discussed with family, reviewed EMR data (avail), discussed with nursing, discussed with case mgmt, reviewed images, amended to note Attending Assessment/Plan: Patient seen/examined bedside. Patient is on 2l oxygen supplementation with mild use of accissory muscles. Patient WBC 28>>>21 today, afebrile overnight. Respiratory rate acceptable. Assessment and plan: 1. Sepsis 2. Community acquired pneumonia, left upper lobe 3. COPD exacerbation 4. Tobacco abuse 5. CHAYO likely pre-renal improved 6. Aortic aneurysm with stable intraluminal thrombus 7. History of GIST off gleevec for past few months - f/u Panculture - TRC nebs, incentive spirometry, taper steroids. - IV abx, IV fluids, monitor renal functions - f/u pulmonary. - Smoking cessation counseling - Outpatient follow up with Vascular for aortic aneurysm and thrombus on plavix. DNR/DNI.
[2017-07-01 13:38] VITALS: BP 120/60
[2017-07-01 23:27] VITALS: BP 114/58
[2017-07-02 07:06] VITALS: BP 138/68
[2017-07-02 08:24] LABS: ABSOLUTE BASOPHIL COUNT 0 /CUMM (0.0-0.2); ABSOLUTE EOSINOPHIL COUNT 0 /CUMM (0.0-0.7); ABSOLUTE GRANULOCYTE CT 14.2 /CUMM (1.4-6.5); ABSOLUTE LYMPH COUNT 0.4 /CUMM (1.2-3.4); ABSOLUTE MONOCYTE COUNT 0.2 /CUMM (0.10-0.60); BASOPHIL % 0 % (0.0-2.0); EOSINOPHIL % 0 % (0-5); HEMATOCRIT 31.3 % (37-47); MEAN CORPUSCULAR HGB 27.1 PG (27.0-31.0); MEAN CORPUSCULAR HGB CONC 32.9 G/DL (33.0-37.0); MEAN CORPUSCULAR VOLUME 82.5 FL (81.0-99.0); PLATELET COUNT 251 /CUMM (130-400); RBC DISTRIBUTION WIDTH 16.2 % (11.5-14.5); WHITE BLOOD CELL COUNT 14.7 /CUMM (4.8-10.8)
[2017-07-02 08:49] LABS: GRANULOCYTE % 96.3 % (42.2-75.2)
--- NOTE | 2017-07-02 10:02 | PN- Housestaff ---
Alethea KAUR,Sarah 07/02/17 1002: Subjective Follow-up For: pneumonia gram + sepsis Subjective: NO EVENTS. patient was on RA overnight for some time but is back on 2L this morning. patient feeling ok, no complaints. Review of Systems Constitutional: Reports: no symptoms. Objective Last 24 Hrs of Vital Signs/I&O Vital Signs Date Time Temp Pulse Resp B/P B/P Pulse O2 O2 Flow FiO2 Mean Ox Delivery Rate 07/02 1545 Nasal 2.0L Cannula 07/02 1516 97.5 84 20 120/72 96 Nasal Cannula 07/02 0816 94 Room Air Room Air 07/02 0800 97 Nasal 2.0L Cannula 07/02 0706 98.0 67 18 138/68 97 07/02 0000 93 Nasal 2.0L Cannula 07/01 2327 97.7 74 20 114/58 99 Nasal 2.0L Cannula 07/01 1950 96 Nasal 2.0L Cannula Intake & Output 07/02 1600 07/02 0800 07/02 0000 Intake Total 950 350 550 Output Total 300 Balance 950 350 250 Intake, IV 300 Intake, Oral 650 350 550 Number 1 Bowel Movements Output, Urine 300 Physical Exam General Appearance: Alert, Oriented X3, Cooperative, No Acute Distress Cardiovascular: Regular Rate, Normal S1, Normal S2 Lungs: mild scattered wheezes Abdomen: Normal Bowel Sounds, Soft, No Tenderness, No Hepatospenomegaly Current Medications: Current Medications Sig/Mitch Start time Last Medication Dose Route Stop Time Status Admin Acetaminophen 650 MG .STK-MED ONE 07/01 210 DC PO 07/01 210 Acetaminophen 650 MG Q8P PRN 06/29 2044 AC 07/01 PO 210 Albuterol Sulfate 3 ML TID 06/30 2199 AC 07/02 INH 1425 Amoxicillin/ 875 MG Q12 07/03 1000 AC Clavulanate Potassium PO Azithromycin 500 MG DAILY 06/30 1000 AC 07/02 Dextrose/Water 250 ML IV 07/02 230 0932 Budesonide/ 1 PUF BID 06/29 2199 AC 07/02 Formoterol Fumarate INH 0933 Calcium Carbonate 500 MG DAILY 07/01 205 AC 07/02 PO 0932 Ceftriaxone Sodium 1,000 MG DAILY 06/30 1000 AC 07/02 IV 07/02 2300 0931 Clopidogrel Bisulfate 75 MG DAILY 06/30 1000 AC 07/02 PO 0931 Diltiazem HCl 120 MG DAILY 06/30 2330 AC 07/02 PO 0931 Heparin Sodium 5,000 UNIT Q8 06/29 2300 AC (Porcine) SC Ipratropium [place] 2.5 ML TID 06/30 2200 AC 07/02 INH 1425 Methylprednisolone 40 MG Q12 06/30 2200 DC 07/02 IV 0931 Morphine Sulfate 2 MG Q6P PRN 06/29 2145 AC 06/30 IV 2215 Prednisone 20 MG DAILY 07/08 1000 AC PO 07/10 1001 Prednisone 30 MG DAILY 07/05 1000 AC PO 07/07 1001 Prednisone 40 MG DAILY 07/02 1036 AC 07/02 PO 07/04 1001 1400 Prednisone 40 MG DAILY 07/02 1030 DC PO 07/11 1029 Last 24 Hrs of Lab/Devin Results Last 24 Hrs of Labs/Mics: Laboratory Tests 07/02/17 0638: Anion Gap 12, Estimated GFR 53 L, BUN/Creatinine Ratio 31.0 H, CBC w Diff NO MAN DIFF REQ, RBC 3.80 L, MCV 82.5, MCH 27.1, RDW 16.2 H, MPV 8.0, Gran % 96.3 H, Lymphocytes % 2.6 L, Monocytes % 1.1 L, Eosinophils % 0, Basophils % 0, Absolute Granulocytes 14.2 H, Absolute Lymphocytes 0.4 L, Absolute Monocytes 0.2, Absolute Eosinophils 0, Absolute Basophils 0, PUBS MCHC 32.9 L Assessment/Plan Assessment: A: 77-year-old female with past medical history of COPD and uses oxygen when necessary at night, CAD status post stent placement 2007 underwent repeat cardiac catheterization 1 week ago, pancreatic cancer and 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 Suspicion of community-acquired pneumonia is high. Patient might have an underlying mild exacerbation of COPD because of the pneumonia. Flu urinary strep and Legionella antigen negative. CTA: positive for dense consolidation in lingula and left upper lobe negative for pulmonary embolism. WBC 28.1 -> 14.7 Blood cx positive x2 for strep pneumo [place] sensitive on 06/29 -cont ceftriaxone/azithr 3rd day. can stop azithro after 5 days (1 more day) and can replace ceftriaxone with augmentin 875mgbid- give for total 14 days (10 days after today). -if wbc does not improve, contact ID for consult -TRC/oxygen supplementation to maintain oxygen saturation above 92% -Continue Spiriva and Advair -Steroids PO taper [id number] 30.3, 20/3, 10/3, THEN STOP -Incentive Spirometry #CHAYO - resolved Received 2 L of normal saline in ER Cr 1.5 -> 1 (baseline 1.0) -encourage po intake, monitor cr -Avoid nephrotoxins # History of aneurysm descending thoracic aorta with intraluminal thrombus; found on last admission. It is stable. -informed Dr. Winston's service as a courtesy call that the patient was admitted -currently no intervention is required vascular surgery was contacted in the ED. -Outpatient follow-up with vascular surgery FOR AA AND THROMBUS ON PLAVIX. #History of CVA the status post stent placement and recent cardiac catheterization -Continue Plavix #medication confirmation Patient taking Cardizem 120MG CD, CONTINUE #DNR/DNI/heart healthy diet/DVT prophylaxis with heparins/q Problem List: 1. Positive blood cultures 2. CHAYO (acute kidney injury) 3. Pneumonia Pain Ratin Pain Location: na Pain Goal: Remain pain free Pain Plan: na Tomorrow's Labs & Rationales: cbc bep Maryellen,Ricardo 07/02/17 1359: Attending MD Review Statement Attending Statement Attending MD Statement: examined this patient, discuss w/resident/PA/DIRECTOR OF EXHIBITS, agreed w/resident/PA/DIRECTOR OF EXHIBITS, discussed with family, reviewed EMR data (avail), discussed with nursing, discussed with case mgmt, reviewed images, amended to note Attending Assessment/Plan: Patient seen/examined bedside. Patient WBC 28>>>21 >>>14 today, blood culture + for strep pansensitive, afebrile overnight. Respiratory rate acceptable. She feels clinically better than admission. She is c/o constipation for which she is taking prune juice. Assessment and plan: 1. Sepsis 2. Community acquired pneumonia, left upper lobe 3. COPD exacerbation 4. Tobacco abuse 5. CHAYO likely pre-renal improved 6. Aortic aneurysm with stable intraluminal thrombus 7. 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 Bactermeia strrep pneumoniae - f/u Panculture suggestive of strep pneumonia bacteremia. - TRC nebs, incentive spirometry, taper steroids. - IV abx, IV fluids, monitor renal functions. - f/u pulmonary. - Smoking cessation counseling - Outpatient follow up with Vascular for aortic aneurysm and thrombus on plavix. anticipate dc soon on oral abx in enxt 24-48 hrs. DNR/DNI.
[2017-07-02 15:16] VITALS: BP 120/72
[2017-07-02 22:03] VITALS: BP 138/60
[2017-07-03 06:35] VITALS: BP 152/60
[2017-07-03] MEDS ORDERED: AUGMENTIN 875-1 EACH PO ×2 (08:41→11:31)
--- NOTE | 2017-07-03 08:41 | PN- Housestaff ---
Ashvin KAUR,[facility] 07/03/17 0840: Subjective Follow-up For: copd pna sepsis Subjective: No acute events overnight. Pt states SOB ok. States improved since admission. Would like to be discharged. Review of Systems Constitutional: Reports: no symptoms. Cardiovascular: Reports: no symptoms. Respiratory: Reports: cough, short of breath. Gastrointestinal: Reports: no symptoms. Genitourinary: Reports: no symptoms. Musculoskeletal: Reports: no symptoms. Objective Last 24 Hrs of Vital Signs/I&O Vital Signs Date Time Temp Pulse Resp B/P B/P Pulse O2 O2 Flow FiO2 Mean Ox Delivery Rate 07/03 0910 94 Room Air 07/03 0635 98.2 68 18 152/60 98 07/03 0000 Nasal 2.0L Cannula 07/02 220 97.8 81 20 138/60 96 Room Air 07/02 2057 96 Nasal 2.0L Cannula 07/02 1545 Nasal 2.0L Cannula 07/02 1516 97.5 84 20 120/72 96 Nasal Cannula Intake & Output 07/03 1600 07/03 0800 07/03 0000 Intake Total 240 800 Output Total Balance 240 800 Intake, Oral 240 800 Physical Exam General Appearance: Alert, Oriented X3, Cooperative, No Acute Distress Neck: no JVD Cardiovascular: Regular Rate, Normal S1, Normal S2 Lungs: decreased air movement bilaterally, L lung wheezing Abdomen: Soft, No Tenderness, decreased bowel sounds Extremities: no LE edema Vascular: 2+ radial pulses Current Medications: Current Medications Sig/Mitch Start time Last Medication Dose Route Stop Time Status Admin Acetaminophen 650 MG .STK-MED ONE 07/02 2046 DC PO 07/02 2047 Acetaminophen 650 MG Q8P PRN 06/29 2044 07/02 PO 2047 Albuterol Sulfate 3 ML BID 07/03 2199 AC INH Albuterol Sulfate 3 ML TID 06/30 2199 MN 07/03 INH 0904 Amoxicillin/ 875 MG Q12 07/03 1000 AC 07/03 Clavulanate Potassium PO 1027 Azithromycin 500 MG DAILY 06/30 1000 DC 07/02 Dextrose/Water 250 ML IV 07/02 230 0932 Budesonide/ 1 PUF BID 06/29 2199 07/03 Formoterol Fumarate INH 102 Calcium Carbonate 500 MG DAILY 07/01 2054 AC 07/03 PO 1029 Ceftriaxone Sodium 1,000 MG DAILY 06/30 1000 DC 07/02 IV 07/02 2300 0931 Clopidogrel Bisulfate 75 MG DAILY 06/30 1000 AC 07/03 PO 1029 Diltiazem HCl 120 MG DAILY 06/30 2330 AC 07/03 PO 1027 Heparin Sodium 5,000 UNIT Q8 06/29 2300 AC (Porcine) SC Ipratropium [place] 2.5 ML BID 07/03 2200 AC INH Ipratropium [place] 2.5 ML TID 06/30 2200 DC 07/03 INH 0904 Morphine Sulfate 2 MG Q6P PRN 06/29 2145 AC 06/30 IV 2215 Prednisone 20 MG DAILY 07/08 1000 AC PO 07/10 1001 Prednisone 30 MG DAILY 07/05 1000 AC PO 07/07 1001 Prednisone 40 MG DAILY 07/02 1036 AC 07/03 PO 07/04 1001 1029 Last 24 Hrs of Lab/Devin Results Last 24 Hrs of Labs/Mics: Laboratory Tests 07/03/17 0735: Anion Gap 13, Estimated GFR > 60, BUN/Creatinine Ratio 33.3 H, CBC w Diff Pending, WBC Pending, RBC Pending, Hgb Pending, Hct Pending, MCV Pending, MCH Pending, RDW Pending, Plt Count Pending, MPV Pending, PUBS MCHC Pending Microbiology 07/03 718 LOWER RESP: Respiratory Culture - COLB 07/03 718 LOWER RESP: Gram Stain - COLB Assessment/Plan Assessment: A: 77-year-old female with past medical history of COPD and uses oxygen when necessary at night, CAD status post stent placement 2007 underwent repeat cardiac catheterization 1 week ago, pancreatic cancer and 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 Suspicion of community-acquired pneumonia is high. Patient might have an underlying mild exacerbation of COPD because of the pneumonia. Flu urinary strep and Legionella antigen negative. CTA: positive for dense consolidation in lingula and left upper lobe negative for pulmonary embolism. WBC 28.1 -> 11.1 Blood cx positive x2 for strep pneumo [place] sensitive on 06/29 -Patient was offered to stay 1 more day however she declined and wanted to be discharged -ceftriaxone/azithr x4 days. discharged with augmentin 875 mg bid- give for total 14 days and probiotics -discharge with po prednisone taper -Continue Spiriva and Advair -Incentive Spirometry -advised to f/u with pulmnology #CHAYO - resolved Received 2 L of normal saline in ER Cr 1.5 -> 1 (baseline 1.0) -encourage po intake, monitor cr -Avoid nephrotoxins # History of aneurysm descending thoracic aorta with intraluminal thrombus; found on last admission. It is stable. -informed Dr. Winston's service as a courtesy call that the patient was admitted -currently no intervention is required vascular surgery was contacted in the ED. -Outpatient follow-up with vascular surgery and cardiology #History of CVA the status post stent placement and recent cardiac catheterization -Continue Plavix #medication confirmation -Patient taking Cardizem 120MG CD, CONTINUE #DNR/DNI/heart healthy diet/DVT prophylaxis with heparins/q Problem List: 1. Positive blood cultures 2. CHAYO (acute kidney injury) 3. Pneumonia Pain Ratin Pain Location: none Pain Goal: Pain 4 or less Pain Plan: pain pathway Tomorrow's Labs & Rationales: none Ricardo Bojorquez 07/03/17 1139: Attending MD Review Statement Attending Statement Attending MD Statement: examined this patient, discuss w/resident/PA/KISS MACHINE OPERATOR, agreed w/resident/PA/KISS MACHINE OPERATOR, discussed with family, reviewed EMR data (avail), discussed with nursing, discussed with case mgmt, reviewed images, amended to note Attending Assessment/Plan: Patient seen/examined bedside. afebrile overnight. Respiratory rate acceptable. She feels clinically better than admission. Constipation relieved. She wants to go home. Assessment and plan: 1. Sepsis 2. Community acquired pneumonia, left upper lobe 3. COPD exacerbation 4. Tobacco abuse 5. CHAYO likely pre-renal improved 6. Aortic aneurysm with stable intraluminal thrombus on plavix 7. 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 Bactermeia strrep pneumoniae - f/u Panculture suggestive of strep pneumonia bacteremia. - TRC nebs, incentive spirometry, taper steroids PO. - PO abx, lactobacillus. - f/u pulmonary outpatient with Dr Torres. - Smoking cessation counseling - Outpatient follow up with Vascular for aortic aneurysm and thrombus on plavix. Patient is medically stable for discharge.
[2017-07-03] MEDS ORDERED: PREDNISONE10 M2 PO ×5 (08:45→11:31)
--- NOTE | 2017-07-03 10:44 | PN- Pulmonary ---
Subjective HPI/Critical Care Issues: Patient seen and examined this morning. She is anticipating discharge per her preferences. Objective Current Medications: Current Medications Sig/Mitch Start time Last Medication Dose Route Stop Time Status Admin Acetaminophen 650 MG .STK-MED ONE 07/02 2046 DC PO 07/02 2047 Acetaminophen 650 MG Q8P PRN 06/29 204 AC 07/02 PO 2048 Albuterol Sulfate 3 ML BID 07/03 2199 UNVr INH Albuterol Sulfate 3 ML TID 06/30 2200 DC 07/03 INH 0904 Amoxicillin/ 875 MG Q12 07/03 1000 AC 07/03 Clavulanate Potassium PO 1027 Azithromycin 500 MG DAILY 06/30 1000 DC 07/02 Dextrose/Water 250 ML IV 07/02 2300 0932 Budesonide/ 1 PUF BID 06/29 220 AC 07/03 Formoterol Fumarate INH 1029 Calcium Carbonate 500 MG DAILY 07/01 2055 AC 07/03 PO 1029 Ceftriaxone Sodium 1,000 MG DAILY 06/30 1000 DC 07/02 IV 07/02 2300 0931 Clopidogrel Bisulfate 75 MG DAILY 06/30 1000 AC 07/03 PO 1029 Diltiazem HCl 120 MG DAILY 06/30 2330 AC 07/03 PO 1027 Heparin Sodium 5,000 UNIT Q8 06/29 2300 AC (Porcine) SC Ipratropium [place] 2.5 ML BID 07/03 2199 UNVr INH Ipratropium [place] 2.5 ML TID 06/30 2200 DC 07/03 INH 0904 Morphine Sulfate 2 MG Q6P PRN 06/29 2145 AC 06/30 IV 2215 Prednisone 20 MG DAILY 07/08 1000 AC PO 07/10 1001 Prednisone 30 MG DAILY 07/05 1000 AC PO 07/07 1001 Prednisone 40 MG DAILY 07/02 1036 AC 07/03 PO 07/04 1001 1029 Vital Signs & I&O Last 24 Hrs of Vitals and I&O: Vital Signs Date Time Temp Pulse Resp B/P B/P Pulse O2 O2 Flow FiO2 Mean Ox Delivery Rate 07/03 0910 94 Room Air 07/03 0635 98.2 68 18 152/60 98 07/03 0000 Nasal 2.0L Cannula 07/02 2202 97.8 81 20 138/60 96 Room Air 07/02 2057 96 Nasal 2.0L Cannula 07/02 1545 Nasal 2.0L Cannula 07/02 1516 97.5 84 20 120/72 96 Nasal Cannula Intake & Output 07/03 1600 07/03 0800 07/03 0000 Intake Total 240 800 Output Total Balance 240 800 Intake, Oral 240 800 Exam Other Physical Findings: Generally - Awake, alert and comfortable without distress Head and neck - normocephalic, atraumatic, EOMI grossly intact Cardiovascular - S1, S2, no murmurs, rubs or gallops Lungs - reduced breath sounds on left, rhonchi Abdomen - Bowel sounds positive, soft, non-tender Extremities - without edema Results Last 24 Hrs of Lab Results: Laboratory Tests 07/03/17 0735: Sodium Pending, Potassium Pending, Chloride Pending, Carbon Dioxide Pending, Anion Gap Pending, BUN Pending, Creatinine Pending, BUN/Creatinine Ratio Pending , CBC w Diff Pending, WBC Pending, RBC Pending, Hgb Pending, Hct Pending, MCV Pending, MCH Pending, RDW Pending, Plt Count Pending, MPV Pending, PUBS MCHC Pending Impression/Plan Impression/Plan Impression/Plan: Impression 77 year old woma community acquired pneumonia secondary to strep pneumo and the blood cultures COPD Plan -Can use augmentin (sens to pcn) -trc/nebs -Steroid taper -aneurysm per cardiology/vascular DVT prophylaxis at all times
[2017-07-03 10:56] LABS: ABSOLUTE BASOPHIL COUNT 0 /CUMM (0.0-0.2); ABSOLUTE EOSINOPHIL COUNT 0 /CUMM (0.0-0.7); ABSOLUTE GRANULOCYTE CT 10.3 /CUMM (1.4-6.5); ABSOLUTE LYMPH COUNT 0.5 /CUMM (1.2-3.4); ABSOLUTE MONOCYTE COUNT 0.3 /CUMM (0.10-0.60); BASOPHIL % 0 % (0.0-2.0); EOSINOPHIL % 0 % (0-5); HEMATOCRIT 32.5 % (37-47); MEAN CORPUSCULAR HGB 26.9 PG (27.0-31.0); MEAN CORPUSCULAR HGB CONC 32.8 G/DL (33.0-37.0); MEAN CORPUSCULAR VOLUME 82.2 FL (81.0-99.0); PLATELET COUNT 261 /CUMM (130-400); RBC DISTRIBUTION WIDTH 15.9 % (11.5-14.5); RED BLOOD CELL CT 3.95 /CUMM (4.20-5.40)
[2017-07-03] MEDS ORDERED: ACIDOPHILUS1 EACH PO ×2 (11:00→11:31)
[2017-07-03 11:50] LABS: WHITE BLOOD CELL COUNT 11.1 /CUMM (4.8-10.8)
--- NOTE | 2017-07-07 12:39 | Discharge Summary ---
Visit Information Visit Dates Admission Date: 06/29/17 Discharge Date: 07/03/17 Hospital Course Course Attending Physician: Ricardo Bojorquez MD 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 P: #Sepsis likely secondary to community-acquired pneumonia and COPD exacerbation The patient met SIRS criteria with elevated white count and bands, elevated heart rate. Suspicion of community-acquired pneumonia is high as her CTA showed positive for dense consolidation in lingula and left upper lobe negative for pulmonary embolism. She presented with elevated D-dimer however CTA was negative for PE. Flu, urinary strep and Legionella antigen were negative. Her blood cultures were positive x2 for strep pneumo ([place] sensitive). She was also seen by pulmnology. She was treated with ceftriaxone/azithromycin x4 days. She was discharged with augmentin 875 mg bid to complete a total 14 day course of antibiotics. She was given probiotics as prophylaxis. Patient was offered to stay 1 more day however she declined and wanted to be discharged #COPD She was seen by pulmonology. She was treated with IV steroids and then transitioned to po steroids for discharge. She was treated with trc, nebs, spiriva, and advair. She was advised to follow up with pulmnology. #CHAYO - resolved Initial Cr was 1.5 which improved back to her baseline of 1.0 after fluids. She was encouraged to increase po intake and to avoid nephrotoxins. # History of aneurysm descending thoracic aorta with intraluminal thrombus; found on last admission. The patient has a history of aneurysm which is stable. We informed informed Dr. Winston's (cardiology) service as a courtesy call that the patient was admitted. Vascular surgery stated that no intervention is required at this time. She was advised to follow up with vascular surgery and cardiology. #History of CVA the status post stent placement and recent cardiac catheterization -Continued Plavix Allergies: Coded Allergies: No Known Drug Allergies (08/07/16) Disposition Summary Disposition Principal Diagnosis: Sepsis likely secondary to community-acquired pneumonia Additional Diagnosis: COPD Discharge Disposition: home or self care Discharge Instructions General Discharge Information Code Status: Do Not Resucitate/Intubat Patient's Diet: Heart healthy Patient's Activity: As tolerated Follow-Up Instructions/Appts: Please follow up with your pcp in 1-2 weeks. 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 Please follow up with your vascular surgeon as regularly scheduled. Please continue your medications as perscribed. Please return to the hospital for any worsening symptoms or concerns. Medications at Discharge Discharge Medications: Continue taking these medications: Clopidogrel Bisulfate (Clopidogrel) 75 MG TABLET 1 Tablet ORAL DAILY Qty = 30 Comments: last given 07/03/17 @ 1029 Fluticasone/Salmeterol (Advair 250-50 Diskus) 250 MCG-50 MCG/DOSE BLST.W.DEV 1 PUFF ORAL TWICE DAILY Comments: Last Taken: NOT GIVEN IN HOSPITAL Time: Albuterol Sulfate (Albuterol Sulfate) 2.5 MG/0.5 ML VIAL.NEB 1 PUFF Inhale through mouth 4XDAILY as needed for COPD Comments: last given 07/03/17 @ 0904 Tiotropium [place] (Spiriva Respimat) (Unknown Strength) MIST.INHAL 2 PUFF Inhale through mouth DAILY Diltiazem HCl (Cardizem Cd) 120 MG CAP.ER.24H 1 Capsule ORAL DAILY Comments: last given 07/03/17 @ 1029 Start taking the following new medications: Prednisone (Prednisone) 10 MG TABLET 1 Tablet ORAL DAILY Qty = 63 No Refills Instructions: DATE TABS 07/04- 6 07/07- 5 07/10-07/13 4 07/14-07/16 3 07/17-07/19 2 07/20-07/22 1. Comments: last given 07/03/17 @ 1029 Lactobacillus Acidophilus (Acidophilus) 1 EACH CAPSULE 1 Capsule ORAL DAILY Qty = 30 No Refills Instructions: . Comments: not given in hospital Amoxicillin/Potassium Clav (Augmentin 875-125 Tablet) 875 MG-125 MG TABLET 1 Tablet ORAL TWICE DAILY Qty = 19 No Refills Instructions: . Comments: last given 07/03/17 @ 1029 Copies To: Gabriella Kitchen DO
== END 2017-07-03 12:53 | DRG 871 ==
LOC: ERH 14:35 → 2NB 20:18 → ERHI 20:18 → ENRESERV 20:46 → ENTRNSPT 21:58 → EDTRNSPTSTS 22:01 → 2NB 22:09 → CMPTRNSPT 22:27 → 2NB 06-30 10:26 → ENTRNSPT 07-03 12:43 → EDTRNSPTSTS 07-03 12:50 → 2NB 07-03 12:53 → CMPTRNSPT 07-03 13:05
PROVIDERS: Internal Medicine; Physician Assistant; Student in an Organized Health Care Education/Training Program
DX: A41.9 Sepsis, unspecified organism (principal); J18.9 Pneumonia, unspecified organism; N17.9 Acute kidney failure, unspecified; I71.2 Thoracic aortic aneurysm, without rupture; Z99.81 Dependence on supplemental oxygen; E86.0 Dehydration; F17.210 Nicotine dependence, cigarettes, uncomplicated; I25.10 Atherosclerotic heart disease of native coronary artery without angina pectoris; E78.5 Hyperlipidemia, unspecified; H91.92 Unspecified hearing loss, left ear; Z95.5 Presence of coronary angioplasty implant and graft; R91.1 Solitary pulmonary nodule; N28.1 Cyst of kidney, acquired; Z86.73 Personal history of transient ischemic attack (TIA), and cerebral infarction without residual deficits; Z66 Do not resuscitate; J43.9 Emphysema, unspecified
CPT/HCPCS: 2NBSP; 36415; 82436; 87040; 87070; 87086; 87449; 87450; 87804; 87804-59; 93005; 93010; 96361; 96365; 96375; J0456; J0696; J1644; J2920; J2930; J3490; J7040; J7060

== ENCOUNTER → 2017-08-08 | Day surgery (SDC) | payer OTHER ==
[~2017-08-08] VITALS: Ht 154.9 cm; Wt 54.0 kg
[~2017-08-08] MED LIST changes: +ACIDOPHILUS1 EACH PO; +AUGMENTIN 875-1 EACH PO; +CARDIZEM CD120 M2 PO; +SPIRIVA RESPIMAT4 GM INH
--- NOTE | 2017-08-08 09:02 | Operative Report ---
Operative/Inv Procedure Report Surgery Date: 08/08/17 Name of Procedure: Cataract extraction lens implantation right eye Pre-Operative Diagnosis: Age-related cataract right eye 20/80 vision Post-Operative Diagnosis: Same Estimated Blood Loss: none Surgeon/Event Av Operator: Sunil KAUR,Gautam Cota Anesthesia: local monitored anesthesi Complications: None Operative/Procedure Note Note: The patient was brought to the operating room standard monitoring equipment was attached the patient was prepped and draped in the usual fashion for intraocular surgery. A lid speculum was placed to retract the lids. The case was begun by making a temporal incision with a 2.4 mm keratome. The eye was stabilized with a Barrett ring during this incision. 1 mL of non-preserved lidocaine was introduced into the anterior chamber to provide anesthesia. The anterior chamber was then filled and deepened with viscoelastic. A curvilinear capsulorrhexis was achieved using a 30-gauge needle and is a cystotome and capsulorrhexis was finished using a Utrata forceps. A second or paracentesis incision was made temporally with a 1 mm MVR blade. The lens was then hydrodissected with balanced salt solution and found to be rotatable. The lens was emulsified using phacoemulsification and a modified four-quadrant cracking technique. The residual cortical material was removed using automated irrigation and aspiration and as much of the anterior capsular rim was cleaned as well as possible. The posterior capsule was cleaned first with the automated machine on a low setting and then manually with a Donn squeegee. The capsular bag was deepened with viscoelastic. The lens a Technis 1 21.0 Diopter placed into the bag under direct visualization and rotated so that the haptics were at 12 and 6:00. Viscoelastic was then removed from the eye by flushing it out and then by automated irrigation and aspiration. The eye was pressurized to a normal tone. 1/10 of a cc of vancomycin solution was introduced into the anterior chamber to provide antibiotic prophylaxis. The wounds were sealed by hydrating the stroma adjacent to them and the eye was left at a proper tone after the wounds were checked and found not to be leaking. The lid speculum was removed from the orbit. Antibiotic and steroid drops were placed on the eye and then the eye was shielded. Monitoring equipment was removed from the patient and the patient was removed from the operative suite to the holding area. The patient tolerated the procedure well and will be seen in the office tomorrow.
== END ==
LOC: STS 02:45
DX: H25.9 Unspecified age-related cataract (principal); I25.10 Atherosclerotic heart disease of native coronary artery without angina pectoris; J44.9 Chronic obstructive pulmonary disease, unspecified; F17.210 Nicotine dependence, cigarettes, uncomplicated
CPT/HCPCS: J2250; V2632

== ENCOUNTER 2017-09-14 15:47 | Inpatient (IN) | payer OTHER ==
[~2017-09-14] VITALS: Ht 154.9 cm; Wt 52.6 kg
[~2017-09-14 15:47] MED LIST changes: +BACTRIM DS TAB1 EACH PO; +KEFLEX500 M1 PO
--- NOTE | 2017-09-14 16:04 | ED DYSPNEA/ASTHMA COMPLAINT ---
History of Present Illness General Chief Complaint: Dyspnea (COPD, CHF, Other) Stated Complaint: SOB Source: patient, old records Exam Limitations: no limitations Vital Signs & Intake/Output Vital Signs & Intake/Output Vital Signs Date Time Temp Pulse Resp B/P B/P Pulse O2 O2 Flow FiO2 Mean Ox Delivery Rate 09/14 1806 122/74 09/14 1800 103 19 96 Nasal 2.0L Cannula 09/14 1626 Nasal 2.0L Cannula 09/14 1615 95 Nasal 4.0L Cannula 09/14 1555 98.4 09/14 1549 110 24 158/82 95 Nasal 2.0L Cannula Allergies Coded Allergies: No Known Allergies (08/04/17) Reconcile Medications Albuterol Sulfate 2.5 MG/0.5 ML VIAL.NEB 1 PUFF INH 4XDAILY PRN COPD ( Reported) Amoxicillin/Potassium Clav (Augmentin 875-125 Tablet) 875 MG-125 MG TABLET 1 TAB PO BID PNEUMONIA/BLOOD INFECTION . Cephalexin (Keflex) 500 MG CAPSULE 1 CAP PO 4 TIMES/DAY cellulitis x 7 days Clopidogrel Bisulfate (Clopidogrel) 75 MG TABLET 1 TAB PO DAILY HEART ( Reported) Diltiazem HCl (Cardizem Cd) 120 MG CAP.ER.24H 1 CAP PO DAILY HEART/BP ( Reported) Fluticasone/Salmeterol (Advair 250-50 Diskus) 250 MCG-50 MCG/DOSE BLST.W.DEV 1 PUFF PO BID COPD (Reported) Lactobacillus Acidophilus (Acidophilus) 1 EACH CAPSULE 1 CAP PO DAILY GI PROPHYLAXIS . Prednisone 10 MG TABLET 1 TAB PO DAILY COPD DATE TABS 07/04- 6 07/07- 5 07/10-07/13 4 07/14-07/16 3 07/17-07/19 2 07/20-07/22 1. Sulfamethoxazole/Trimethoprim (Bactrim Ds Tablet) 800 MG-160 MG TABLET 1 TAB PO BID infection Tiotropium [place] (Spiriva Respimat) (Unknown Strength) MIST.INHAL 2 PUFF INH DAILY COPD (Reported) Triage Note: PT TO ED WITH WORSENING SOB AND DYSPNEA ON EXERTION OVER THE PAST FEW DAYS. STATES SEEN IN ED A COUPLE DAYS AGO AND PLACED ON ABTS FOR "BLOOD INFECTION." INTERMITTENT CHEST PRESSURE. 89% ROOM AIR FOR EMS PLACED ON 2L NC WITH IMPROVEMENT TO 95% Triage Nurses Notes Reviewed? yes HPI: Patient was seen on Monday for COPD exacerbation. Patient subsequent was discharged home with antibiotics and steroids. Patient states her symptoms have been worsening. Patient usually only uses oxygen at night however for the past 2 days she has needed it all the time. Patient does continue to smoke. Patient has a nonproductive cough. Patient denies any chest pain or chest tightness. There are no fevers or chills. There is anorexia but there is no nausea or vomiting. Past History Medical History Any Pertinent Medical History? 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 No Review of Systems Review of Systems Constitutional: Reports: no symptoms. EENTM: Reports: no symptoms. Respiratory: Reports: cough, short of breath, wheezing. Cardiovascular: Reports: no symptoms. GI: Reports: no symptoms. Genitourinary: Reports: no symptoms. Musculoskeletal: Reports: no symptoms. Skin: Reports: no symptoms. Neurological/Psychological: Reports: no symptoms. Hematologic/Endocrine: Reports: no symptoms. Immunologic/Allergic: Reports: no symptoms. All Other Systems: Reviewed and Negative Physical Exam Physical Exam General Appearance: well developed/nourished, alert, awake, anxious, mild distress Head: atraumatic, normal appearance Eyes: Bilateral: PERRL, EOMI. Ears, Nose, Throat: normal pharynx, normal ENT inspection, hearing grossly normal Neck: normal inspection, supple, full range of motion Respiratory: decreased breath sounds, rhonchi, wheezing, respiratory distress Cardiovascular: regular rate/rhythm, normal peripheral pulses Gastrointestinal: normal bowel sounds, soft, non-tender, no organomegaly Extremities: normal inspection, normal capillary refill, normal range of motion, no edema Neurologic/Psych: no motor/sensory deficits, awake, alert, oriented x 3, normal gait, normal mood/affect Skin: intact, normal color, warm/dry Lymphatic: no anterior cervical phyllis Core Measures ACS in differential dx? No CVA/TIA Diagnosis No Sepsis Present: No Sepsis Focused Exam Completed? No Progress Differential Diagnosis: AMI, bronchitis, CHF, COPD, pneumonia Plan of Care: Orders Procedure Date/time Status Heart Healthy Diet 09/15 B Active ED Holding Orders 09/15 1831 Active Admit to inpatient 09/15 1831 Active Vital Signs 09/15 1831 Active Code Status 09/14 183 Active BLOOD CULTURE 09/14 160 Active TROPONIN LEVEL 09/14 160 Complete PARTIAL THROMBOPLASTIN TIME 09/14 160 Complete PROTHROMBIN TIME 09/14 160 Complete COMPREHENSIVE METABOLIC PANEL 09/14 160 Complete CBC WITHOUT DIFFERENTIAL 09/14 1602 Complete EKG 09/14 154 Active Laboratory Tests 09/14/171652: Anion Gap 12, Estimated GFR 53 L, BUN/Creatinine Ratio 22.0, Glucose 116 H, Calcium 9.7, Total Bilirubin 0.6, AST 19, ALT 22, Alkaline Phosphatase 89, Troponin I 0.03, Total Protein 6.6, Albumin 3.8, Globulin 2.8, Albumin/Globulin Ratio 1.4 09/14/17 160: PT 10.1, INR 0.93, APTT 25, CBC w Diff NO MAN DIFF REQ, RBC 4.77, MCV 81.6, MCH 26.6 L, MCHC 32.6 L, RDW 17.3 H, MPV 7.6, Gran % 94.3 H, Lymphocytes % 3.2 L, Monocytes % 2.1, Eosinophils % 0.2, Basophils % 0.2, Absolute Granulocytes 11.4 H, Absolute Lymphocytes 0.4 L, Absolute Monocytes 0.3, Absolute Eosinophils 0, Absolute Basophils 0 Microbiology 09/14 165 BLOOD: Blood Culture - RECD 09/14 1605 BLOOD: Blood Culture - RECD Diagnostic Imaging: Viewed by Me: Radiology Read. Discussed w/RAD: Radiology Read. CXR Impression: PATIENT: EROS BARNEY PRESENT AGE: 77 PATIENT ACCOUNT NO: [id number] : 38 LOCATION: [facility] ORDERING PHYSICIAN: Charles Rowe MD SERVICE DATE: 09/14/17-1602 EXAM TYPE: RAD - XRY-PORTABLE CHEST XRAY EXAMINATION: CHEST 1 VIEW CLINICAL INFORMATION: Cough, shortness of breath. COMPARISON: 09/12/2017. TECHNIQUE: An AP view of the chest is provided. FINDINGS: The cardiac silhouette is enlarged, though stable. The mediastinal and hilar contours are unremarkable. There are neither pleural effusions nor pneumothoraces. There are no consolidations. The lungs are hyperinflated. The osseous structures are unremarkable. IMPRESSION: Lung hyperinflation. Stable cardiomegaly. No consolidations. DICTATED BY: Nilson Christopher MD DATE/TIME DICTATED:09/14/171711 FINANCE LECTURER:VICKI DATE/TIME TRANSCRIBED:09/14/171711 CONFIDENTIAL, DO NOT COPY WITHOUT APPROPRIATE AUTHORIZATION. <Electronically signed in Other Vendor System> SIGNED BY: Nilson Christopher MD 09/14/171716 Initial ED EKG: NSR, no ST T wave changes Rhythm Strip: normal sinus rhythm Departure Departure Disposition: STILL A PATIENT Condition: Guarded Clinical Impression Primary Impression: COPD exacerbation Referrals: Gabriella Kitchen DO (PCP/Family) Departure Forms: Customer Survey General Discharge Information Admission Note Spoke With: Shannon Rodriguez MD Documentation of Exam: Documentation of any treatments & extenuating circumstances including Concerns Regarding Discharge (functional status, medication knowledge or non-compliance, living conditions, etc.) that warrant an admission rather than observation: [ Admitted for IV steroids, IV antibiotics, nebulizers, pulmonary consultation. Patient has been on outpatient treatment for the COPD exacerbation since Monday but her symptoms are worsening. Patient is requiring oxygen at home now. Patient requires admission at this time.] Critical Care Note Critical Care Note Critical Care Time: non-applicable
[2017-09-14 16:18] LABS: ABSOLUTE BASOPHIL COUNT 0 /CUMM (0.0-0.2); ABSOLUTE EOSINOPHIL COUNT 0 /CUMM (0.0-0.7); ABSOLUTE GRANULOCYTE CT 11.4 /CUMM (1.4-6.5); ABSOLUTE LYMPH COUNT 0.4 /CUMM (1.2-3.4); ABSOLUTE MONOCYTE COUNT 0.3 /CUMM (0.10-0.60); BASOPHIL % 0.2 % (0.0-2.0); EOSINOPHIL % 0.2 % (0-5); HEMATOCRIT 38.9 % (37-47); MEAN CORPUSCULAR HGB 26.6 PG (27.0-31.0); MEAN CORPUSCULAR HGB CONC 32.6 G/DL (33.0-37.0); MEAN CORPUSCULAR VOLUME 81.6 FL (81.0-99.0); MEAN PLATELET VOLUME 7.6 FL (7.4-10.4); PLATELET COUNT 321 /CUMM (130-400); RBC DISTRIBUTION WIDTH 17.3 % (11.5-14.5); RED BLOOD CELL CT 4.77 /CUMM (4.20-5.40)
[2017-09-14 16:28] LABS: GRANULOCYTE % 94.3 % (42.2-75.2)
[2017-09-14 16:33] LABS: PT 10.1 SEC (9.4-12.5); PTT 25 SEC (25-37)
--- NOTE | 2017-09-14 17:17 | RADIOLOGY REPORT ---
EXAMINATION: CHEST 1 VIEW CLINICAL INFORMATION: Cough, shortness of breath. COMPARISON: 09/12/2017. TECHNIQUE: An AP view of the chest is provided. FINDINGS: The cardiac silhouette is enlarged, though stable. The mediastinal and hilar contours are unremarkable. There are neither pleural effusions nor pneumothoraces. There are no consolidations. The lungs are hyperinflated. The osseous structures are unremarkable. IMPRESSION: Lung hyperinflation. Stable cardiomegaly. No consolidations.
--- NOTE | 2017-09-14 19:30 | History & Physical ---
Charles Eaton MD 09/14/171928: General Information and HPI MD Statement: I have seen and personally examined EROS BARNEY and documented this H&P. The patient is a 77 year old F who presented with a patient stated chief complaint of [COPD exacerbation]. Source of Information: patient, old records Exam Limitations: no limitations History of Present Illness: Patient is a 77-year-old female with a PMH significant for CAD status post stent placement in 2007 with a repeat cardiac catheterization showing no abnormalities , COPD on 2-3 L O2 nasal cannula when necessary, pancreatic tumor status post chemotherapy currently with pancreatic cyst, descending thoracic aortic aneurysm , who presents complaining of worsening dyspnea, productive cough. Patient was seen in the [facility] ED 2 days prior to admission for cellulitis of the right-sided neck, she was displaying signs of dyspnea at that time she was discharged home on Keflex and Bactrim. Since then she has been experiencing worsening dyspnea on exertion, productive cough with yellow sputum, rhinorrhea, sore throat. She also had a transient episode of chest discomfort described as a pressure-like moderate discomfort nonradiating. She reports occasionally experiencing the same discomfort on previous COPD exacerbations. Her dyspnea began the morning prior to admission with dyspnea on exertion which progressed over the next 24 hours. She was using supplemental oxygen during this time. This dyspnea was not relieved by her normal COPD medications including albuterol , Advair, Spiriva, prednisone. Patient follows with Dr. Torres and reports seeing him recently within the last month. She has never been admitted to the ICU or intubated secondary to a COPD exacerbation. 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 Home Who Do You Live With? self Services at Home: Oxygen Primary Language: [place] Smoking Status: Current Everyday Smoker (50 pack year hx) ETOH Use: denies use Illicit Drug Use: denies illicit drug use Living Will? yes Functional Ability ADLs Independent: dressing, eating, toileting, bathing. Ambulation: independent IADLs Independent: shopping, housework, finances, food prep, telephone, transportation , medication admin. Review of Systems Review of Systems Constitutional: Denies: chills, fever, malaise, weakness. EENTM: Reports: no symptoms. Cardiovascular: Reports: see HPI, chest pain (pressure like discomfort). Denies: palpitations, syncope. Respiratory: Reports: cough, short of breath, sputum production, wheezing. Denies: hemoptysis, orthopnea. GI: Reports: no symptoms. Genitourinary: Reports: see HPI, hematuria. Musculoskeletal: Reports: no symptoms. Skin: Reports: no symptoms. Neurological/Psychological: Reports: no symptoms. Exam & Diagnostic Data Last 24 Hrs of Vital Signs/I&O Vital Signs Date Time Temp Pulse Resp B/P B/P Pulse O2 O2 Flow FiO2 Mean Ox Delivery Rate 09/15 0000 Nasal 3.0L Cannula 09/14 2210 98.0 104 20 140/80 96 Nasal Cannula 09/14 2156 Nasal 5.0L Cannula 09/14 2056 Nasal 5.0L Cannula 09/15 2007 97.1 104 21 133/78 94 Nasal 2.0L Cannula 09/14 1834 98.2 09/14 1834 Nasal 2.0L Cannula 09/14 1806 122/74 09/14 1800 103 19 96 Nasal 2.0L Cannula 09/14 1626 Nasal 2.0L Cannula 09/14 1615 95 Nasal 4.0L Cannula 09/14 1555 98.4 09/14 1549 110 24 158/82 95 Nasal 2.0L Cannula Intake & Output 09/15 0800 09/15 0000 09/14 1600 Intake Total Output Total Balance Patient 116 lb 116 lb Weight Weight Reported by Patient Reported by Patient Measurement Method Physical Exam General Appearance Alert, Oriented X3, Cooperative, Mild Distress (respiratory distress) Skin Temp/Moisture Exam: Warm/Dry Sepsis Skin Exam (color): Normal for Ethnicity HEENT Atraumatic, PERRLA, EOMI, Mucous Membr. moist/pink, no erythema or swelling of the oropharynx Neck no mass on L side of neck Cardiovascular Normal S1, Normal S2, No Murmurs, tachycardia, HR 110s Lungs diffuse expiratory wheezing Abdomen Normal Bowel Sounds, Soft, No Tenderness Neurological Normal Speech, Normal Tone, Sensation Intact, Cranial Nerves 3-12 NL Extremities No Clubbing, No Cyanosis, No Edema Vascular Normal Pulses, Pulses Symmetrical Last 24 Hrs of Labs/Devin: Laboratory Tests 09/14/17 2344: Troponin I 0.04 09/14/17 1653: Anion Gap 12, Estimated GFR 53 L, BUN/Creatinine Ratio 22.0, Glucose 116 H, Calcium 9.7, Total Bilirubin 0.6, AST 19, ALT 22, Alkaline Phosphatase 89, Troponin I 0.03, Total Protein 6.6, Albumin 3.8, Globulin 2.8, Albumin/Globulin Ratio 1.4 09/14/17 1606: PT 10.1, INR 0.93, APTT 25, CBC w Diff NO MAN DIFF REQ, RBC 4.77, MCV 81.6, MCH 26.6 L, MCHC 32.6 L, RDW 17.3 H, MPV 7.6, Gran % 94.3 H, Lymphocytes % 3.2 L, Monocytes % 2.1, Eosinophils % 0.2, Basophils % 0.2, Absolute Granulocytes 11.4 H, Absolute Lymphocytes 0.4 L, Absolute Monocytes 0.3, Absolute Eosinophils 0, Absolute Basophils 0 09/14/17 0600: Sodium Cancelled, Potassium Cancelled, Chloride Cancelled, Carbon Dioxide Cancelled, Anion Gap Cancelled, BUN Cancelled, Creatinine Cancelled, BUN/ Creatinine Ratio Cancelled Microbiology 09/15 0239 URINE ROUT: Legionella Antigen - ORD 09/15 023 URINE ROUT: Streptococcus pneumoniae Antigen (M - ORD 09/14 2302 NASOPHARYN: Influenza Virus A & B Rapid Smear - ORD 09/14 1653 BLOOD: Blood Culture - RECD 09/14 1606 BLOOD: Blood Culture - RECD Diagnostic Data EKG Results Sinus tachycardia with significant motion artifact CXR Results The cardiac silhouette is enlarged, though stable. The mediastinal and hilar contours are unremarkable. There are neither pleural effusions nor pneumothoraces. There are no consolidations. The lungs are hyperinflated. The osseous structures are unremarkable. IMPRESSION: Lung hyperinflation. Stable cardiomegaly. No consolidations. Assessment/Plan Assessment: Patient is a 77-year-old female with a PMH significant for CAD status post stent placement in 2007 with a repeat cardiac catheterization showing no abnormalities , COPD on 2-3 L O2 nasal cannula when necessary, 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 CXR showing hyperinflation, stable cardiomegaly with no opacifications Signs on admission: T 98.4, P1 10, RR 24, 158/82, pulse ox 89% on room air ( increased to 95% on 2 L O2). Labs: Mild leukocytosis WBC 12, granulocytes 94.3%, BUN 22, troponin 0.03, 0.04 Problem list #Acute on chronic respiratory failure #COPD exacerbation #Chronic medical problems Plan -Admit to general medicine -TR/nebs -IV Solu-Medrol 40 mg every 8 hours -IV azithromycin -Guaifenesin -Right neck cellulitis, no need to continue antibiotic therapy -Follow-up rapid flu test -ACS ruled out with negative troponins and EKGs 2, the patient continues to have chest pressure in a.m. consider 1 more set of troponin EKG -Continue home medications - pulmonology consult with Dr. Torres in a.m. Diet: Heart healthy DVT prophylaxis: Lovenox, Alps CODE STATUS: DNR/DNI As Ranked By This Provider Problem List: 1. COPD exacerbation Core Measures/Misc (02/26) Acute Coronary Syndrome ACS Diagnosis: No No ASA d/t Surgical Contraindication Congestive Heart Failure Congestive Heart Failure Diagnosis No Cerebrovascular Accident CVA/TIA Diagnosis: No VTE (View Protocol) VTE Risk Factors Smoker No Mechanical VTE Prophylaxis d/t N/A MechProphylax Ordered No VTE Pharm Prophylaxis d/t NA PharmProphylax ordered Sepsis (View protocol) Sepsis Present: No Ángel Cancino 09/14/172028: General Information and HPI Allergies/Medications Home Med list Albuterol Sulfate 2.5 MG/0.5 ML VIAL.NEB 1 PUFF INH 4XDAILY PRN COPD ( Reported) Albuterol Sulfate (Proair Respiclick) 90 MCG AER.POW.BA 2 PUFF INH PRN COPD ( Reported) Clopidogrel Bisulfate (Clopidogrel) 75 MG TABLET 1 TAB PO DAILY HEART ( Reported) Ezetimibe (Zetia) 10 MG TABLET 1 TAB PO DAILY CHOLESTEROL (Reported) Fluticasone/Salmeterol (Advair 250-50 Diskus) 250 MCG-50 MCG/DOSE BLST.W.DEV 1 PUFF PO BID COPD (Reported) Tiotropium [place] (Spiriva) 18 MCG CAP.W.DEV 1 CAP INH DAILY COPD (Reported) Resident Review Statement Resident Statement: examined this patient, discussed with financial analyst intern, agreed with financial analyst intern, reviewed images Other Findings: 77 year old woman, current smoker, from home with pmh signficant for COPD on home oxygen of 2L prn and chronic prednisone 10mg (non compliant), CAD s/p Cardiac cath s/p stent done at [facility], 06/19 on plavix, pancreatic CA/ cystic disease, descending aortic aneursym with intraluminal thrombus. Unable to breath Since Monday associated with cough and sputum production (scanty, yellowish), Shortness of breath on minimal excertion. Worsened to a point where she called EMS. Heaviness in chest approx couple of hours, no radiation, pain free on interview. Also endorses rhinorrhea. Was seen in ED 2 days ago in ED for right-sided neck swelling was given Keflex. At that time CTA was done showed a stable 6 mm nodular density. Within the lingula on image 276, there is a 4 mm nodule no evidence of PE, CT neck with IV contrast showed Mucosal hyperemia and enhancement particularly in the nasopharynx which is suspicious for pharyngitis. No retropharyngeal fluid collection. Denies orthopnea, sick contacts, fever, n/v/d, dysuria, b/l lower extremity swelling. independant with IADLs Of note she has been having Hematuria since august, follows up with Dr. Nogueira found to have renal cysts. Vitals temperature 98.2, heart rate 103, blood pressure 158/82, 95% on 5 L. On examination she had mild respiratory distress. CVS S1-S2 tachycardia, RS diffuse bilateral expiratory wheezing heard throughout in all areas, abdomen soft nontender, no lower extremity edema noted. Labs significant for WBC 12.0, hemoglobin 12.7, hematocrit 39.9, platelet 321, sodium 141, potassium 3.6, chloride 104, the 24, BP 122, creatinine 1.0, glucose 111, normal LFTs, troponin 0.01 EKG shows normal sinus rhythm and tachycardia Chest x-ray: Lung hyperinflation. Stable cardiomegaly. No consolidations. Assessment: Acute on chronic respiratory failure secondary to Acute on chronic COPD exacerbation possibly triggered by upper respiratory symptoms Problem list: Acute on chronic respiratory failure COPD stage D Coronary disease status post stents Descending aortic aneurysm CVA Kidney cyst Acute on chronic respiratory failure secondary to COPD exacerbation Admit to medicine floor, vitals per protocol TRC/nebs, continue supplemental oxygen taper to keep oxygen above 90% Continue pro-air, Advair and Spiriva Continue solu-medrol 40 mg every 8 IV Continue with IV azithromycin Follow-up flu Legionella and strep urinary antigen and blood cultures Pulmonary consult with Dr. Torres in the morning Her last PFTs done in 2017 showed severe obstructive lung disease Coronary disease status post stents Will trend EKG and troponin Continue Plavix, Zetia per patient she is not taking cardiazem DVT prophylaxis subcutaneous Lovenox Healthy diet Patient is DNR/DNI Shannon Rodriguez 09/15/17 0407: Attending MD Review Statement Attending Statement Attending MD Statement: examined this patient, discuss w/resident/PA/SKI INSTRUCTOR, agreed w/resident/PA/SKI INSTRUCTOR, reviewed EMR data (avail), reviewed images, amended to note Attending Assessment/Plan: CC: Worsening of shortness of breath PMH: COPD on as required 2 L nasal cannula at nighttime, CAD S/P stent 2007, repeat coronary cath June 2017, descending thoracic aneurysm, pararenal abdominal aortic aneurysm, pancreatic cancer, currently off chemotherapy Patient came to ER for worsening shortness of breath, cough with yellow colored sputum production since 2 days. He shouldn't was seen in ER on the third for right-sided neck swelling, she was evaluated with neck and chest CT scan and was discharged on Keflex and Bactrim. Patient was taking antibiotics as prescribed, her neck swelling improved but she started to notice worsening cough, shortness of breath, yellow colored sputum production. When her cough and shortness of breath was severe she also noticed substernal chest pain, nonradiating resolved on its own. She also complains of upper respiratory symptoms with nasal discharge and congestion. She felt minor chills at home but no significant fever , diaphoresis, nausea, vomiting, constipation she has intermittent hematuria for which he has been following up with urologist. She is expected to get MRI next week for pancreatic cancer to decide chemotherapy plan. She is current smoker. Currently she denies any chest pain and her respiratory symptoms improved after coming to ER. She tried to take prednisone at home yesterday to avoid coming to hospital. Vitals: Afebrile, pulse 110, RR 24, blood pressure 158/82, saturating 95% on 2 L nasal cannula. On exam: A O 3, cooperative, cachectic, moderate respiratory distress, accessory muscles in use, neck supple, JVD normal, no lymphadenopathy, mucosa dry, complete neurological examination unremarkable, no dependent edema, no obvious skin rashes or inflammation CVS: S1-S2, RRR. RS: Bilateral wheezing extensively with prolonged expiration. Abdomen: Soft, NT, ND, bowel sounds present, abdominal bruit auscultated. CXR: Lung hyperinflation. Stable cardiomegaly. No consolidations. Assessment and plan 77-year-old female with extensive past medical history as mentioned above presented in ER for worsening of shortness of breath, productive cough with yellow colored sputum production, one episode of chest pain and chills but no fever. Patient was seen in ER on September 12 and was evaluated with CTA chest and CT neck with IV contrast. She was found to have right cervical lymphadenopathy probably secondary to infection, mucosal hyperemia in the nasopharynx. Patient was discharged on Bactrim and Keflex. She was taking this antibiotics at home but started to notice worsening cough, shortness of breath. She is on home oxygen as required but since last 2 days she was using it continuously, she was using her nebulization several times and tried home doses of prednisone before coming to ER. She is wheezing extensively bilaterally with prolonged expiration, saturating well on 2 L nasal cannula, accessory muscles in use, moderate respiratory distress, no JVD, no leg swelling she is cachectic. Even though WBCs increased as compared to her previous ER visit with left shift 10.6 >> 12.0 , N 74% >> 94%, no obvious infiltrate was noted on chest x-ray. Even her CTA chest done 2 days back was unremarkable, less likely pneumonia at this point. This appears to be COPD exacerbation. Episode of chest pain/tightness could be secondary to COPD but given her history of CAD we will repeat another set of troponins and ECG. Currently patient asymptomatic and no ECG changes. + COPD exacerbation + Acute on chronic hypoxic respiratory failure + Hx of COPD on as required 2 L nasal cannula at nighttime, CAD S/P stent 2007, repeat coronary cath June 2017, descending thoracic aneurysm, pararenal abdominal aortic aneurysm, pancreatic cancer, currently off chemotherapy - Admit to general medicine - Try to wean off oxygen - IV methylprednisolone 40 mg every 8 hours - IV azithromycin - Discontinue Bactrim and Keflex - TRC nebulization with albuterol and ipratropium scheduled and when necessary - Check influenza - Mucinex scheduled twice a day - Continue rest of the home medications - Pulmonology consult in a.m. - Saline lock IV - 1 more set of troponins and ECGs - Adequate pain control - DVT prophylaxis
[2017-09-14] MEDS ORDERED: ZETIA10 M1 PO (20:18)
[2017-09-14] MEDS ORDERED: SPIRIVA18 MCG INH (20:18)
[2017-09-14] MEDS ORDERED: PROAIR RESPICL90 MCG INH (20:19)
[2017-09-14] MEDS ORDERED: FUROSEMIDE20 M1 (20:21)
[2017-09-14] MEDS ORDERED: FLUOXETINE HCL10 M2 (20:21)
[2017-09-14 22:11] VITALS: BP 140/80
--- NOTE | 2017-09-15 04:08 | Admission Certification ---
Admission Certification Certification Statement - As attending physician, I certify that at the time of - admission, based on clinical presentation, severity of - symptoms, need for further diagnostic testing and - therapeutic interventions, and risk of adverse outcomes - without in-hospital treatment, in my clinical assessment, - this patient requires an acute hospital stay for a minimum - of two nights or longer. I have also considered psychsocial - factors such as support system, advanced age, financial - issues, cognitive issues, and failed out-patient treatments, - past re-admission history, safety of patient, and lack of - compliance as applicable. Specific rationale supporting this admission is: COPD exacerbation
[2017-09-15 07:00] VITALS: BP 132/86
--- NOTE | 2017-09-15 07:25 | PN- Housestaff ---
See Addendum Subjective Follow-up For: COPD Exacerbation Subjective: Ms Cassidy was seen and examined this morning. She is resting comfortably in bed. Denies any issues overnight. States breathing is a little better and has responded well to IV steroids. She also states that her right neck feels better (previously described as a swelling the "size of an egg"). She denies any fever, chills, nausea, vomiting. Denies any dyspnea and dyspnea on exertion. Currently seated on the chair beside her bed. Tolerating by mouth intake well. Review of Systems Constitutional: Reports: see HPI. Objective Last 24 Hrs of Vital Signs/I&O Vital Signs Date Time Temp Pulse Resp B/P B/P Pulse O2 O2 Flow FiO2 Mean Ox Delivery Rate 09/16 799 95 Nasal 3.0L Cannula 09/15 07 97.9 92 20 132/86 96 Nasal 3.0L Cannula 09/15 0000 Nasal 3.0L Cannula 09/14 2211 98.0 104 20 140/80 96 Nasal Cannula 09/14 2157 Nasal 5.0L Cannula 09/147 Nasal 5.0L Cannula 09/15 2007 97.1 104 21 133/78 94 Nasal 2.0L Cannula 09/14 1834 98.2 09/14 1834 Nasal 2.0L Cannula 09/14 1806 122/74 09/14 1800 103 19 96 Nasal 2.0L Cannula 09/14 1626 Nasal 2.0L Cannula 09/14 1615 95 Nasal 4.0L Cannula 09/14 1555 98.4 09/14 1549 110 24 158/82 95 Nasal 2.0L Cannula Intake & Output 09/15 1600 09/15 0800 09/15 0000 Intake Total 360 Output Total 300 Balance 60 Intake, Oral 360 Output, Urine 300 Patient 52.617 kg Weight Weight Reported by Patient Measurement Method Physical Exam General Appearance: Alert, Oriented X3, Cooperative Cardiovascular: Regular Rate, Normal S1, Normal S2 Lungs: Decreased air entry. Mild Wheezing noted througout. Abdomen: Normal Bowel Sounds, Soft, No Tenderness Neurological: Normal Gait, Normal Speech, Strength at 5/5 X4 Ext Extremities: No Cyanosis, No Edema Vascular: Normal Pulses Current Medications: Current Medications Sig/Mitch Start time Last Medication Dose Route Stop Time Status Admin Albuterol Sulfate 3 ML EVERY 4 HRS/AWAKE 09/15 0800 AC 09/15 INH 0803 Albuterol Sulfate 3 ML Q4H 09/15 0245 DC INH Albuterol Sulfate 3 ML Q4H 09/14 2200 CAN INH Albuterol Sulfate 3 ML ONCE ONE 09/14 1615 DC 04 INH 09/14 1616 1615 Azithromycin 500 MG DAILY 09/15 1000 AC 09/15 Dextrose/Water 250 ML IV 0942 Budesonide/ 2 PUF BID 09/14 2200 AC 09/15 Formoterol Fumarate INH 0937 Clopidogrel Bisulfate 75 MG DAILY 09/15 1000 AC 09/15 PO 0936 Dextrose/Water 1,000 ML SEE RATE 09/14 2030 CAN IV Enoxaparin Sodium 40 MG DAILY 09/15 1000 AC 09/15 SC 0940 Ezetimibe 10 MG DAILY 09/15 1000 AC 09/15 PO 0936 Guaifenesin 600 MG Q12 09/15 1000 AC 09/15 PO 0937 Ipratropium [place] 2.5 ML ONCE ONE 09/14 1615 DC 09/14 INH 09/14 1616 1615 Methylprednisolone 40 MG Q12 09/15 2200 AC IV Methylprednisolone 40 MG Q8 09/15 06 DC 09/15 IV 0511 Methylprednisolone 0 .STK-MED ONE 09/14 1627 DC .ROUTE Methylprednisolone 125 MG ONCE ONE 09/14 161 DC 09/14 IV 09/14 161 1625 Nicotine 7 MG DAILY 09/14 2046 AC 09/15 TOP 0937 Tiotropium [place] 1 PUF DAILY 09/15 1000 AC 09/15 INH 0936 Last 24 Hrs of Lab/Devin Results Last 24 Hrs of Labs/Mics: Laboratory Tests 09/15/17 0745: CBC w Diff NO MAN DIFF REQ, RBC 4.68, MCV 82.1, MCH 27.1, MCHC 33.0, RDW 17.4 H , MPV 7.5, Gran % 93.3 H, Lymphocytes % 5.8 L, Monocytes % 0.9 L, Eosinophils % 0, Basophils % 0, Absolute Granulocytes 6.6 H, Absolute Lymphocytes 0.4 L, Absolute Monocytes 0.1, Absolute Eosinophils 0, Absolute Basophils 0 09/14/17 2344: Troponin I 0.04 09/14/17 1653: Anion Gap 12, Estimated GFR 53 L, BUN/Creatinine Ratio 22.0, Glucose 116 H, Calcium 9.7, Total Bilirubin 0.6, AST 19, ALT 22, Alkaline Phosphatase 89, Troponin I 0.03, Total Protein 6.6, Albumin 3.8, Globulin 2.8, Albumin/Globulin Ratio 1.4 09/14/17 1606: PT 10.1, INR 0.93, APTT 25, CBC w Diff NO MAN DIFF REQ, RBC 4.77, MCV 81.6, MCH 26.6 L, MCHC 32.6 L, RDW 17.3 H, MPV 7.6, Gran % 94.3 H, Lymphocytes % 3.2 L, Monocytes % 2.1, Eosinophils % 0.2, Basophils % 0.2, Absolute Granulocytes 11.4 H, Absolute Lymphocytes 0.4 L, Absolute Monocytes 0.3, Absolute Eosinophils 0, Absolute Basophils 0 Microbiology 09/15 514 URINE ROUT: Legionella Antigen - COMP 09/15 514 URINE ROUT: Streptococcus pneumoniae Antigen (M - COMP 09/15 514 NASOPHARYN: Influenza Virus A & B Rapid Smear - COMP 09/14 165 BLOOD: Blood Culture - RECD 09/14 1605 BLOOD: Blood Culture - RECD Assessment/Plan Assessment: Patient is a 77-year-old female with a PMH significant for CAD status post stent placement in 2007 with a repeat cardiac catheterization showing no abnormalities , COPD on 2-3 L O2 nasal cannula when necessary, 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 CXR showing hyperinflation, stable cardiomegaly with no opacifications Signs on admission: T 98.4, P1 10, RR 24, 158/82, pulse ox 89% on room air ( increased to 95% on 2 L O2). Labs: Mild leukocytosis WBC 12, granulocytes 94.3%, BUN 22, troponin 0.03, 0.04 Problem list #Acute on chronic respiratory failure #COPD exacerbation #Chronic medical problems #Elevated Pro BNP #Nicotine Dependance. Plan -Continue on general medicine -TRC/nebs -IV Solu-Medrol 40 mg every 12 hours, (reduced from Q8) may consider decreasing to daily/switch to PO on 09/16/2017 -IV azithromycin, for anti inflamatory properties, transition to PO 09/16/2017. -Pulmonary consultation obtained. -Guaifenesin -Right neck cellulitis, no need to continue antibiotic therapy -Follow-up rapid flu test -ACS ruled out with negative troponins and EKGs 2. -Mentioned to Dr Pak (Dr Winston away) that patient admitted. - May consider Repeat Echocardiogram, last one on 03/27/2017, showed Stage one diastolic dysfunction. -Smoking cessation counselling. -Continue home medications Diet: Heart healthy DVT prophylaxis: Lovenox, Alps CODE STATUS: DNR/DNI Problem List: 1. COPD exacerbation 2. COPD exacerbation Pain Ratin Pain Location: No Pain Endorsed Pain Goal: Remain pain free Pain Plan: Tylenol PRN Tomorrow's Labs & Rationales: No LABS
[2017-09-15 08:46] LABS: ABSOLUTE BASOPHIL COUNT 0 /CUMM (0.0-0.2); ABSOLUTE EOSINOPHIL COUNT 0 /CUMM (0.0-0.7); ABSOLUTE GRANULOCYTE CT 6.6 /CUMM (1.4-6.5); ABSOLUTE LYMPH COUNT 0.4 /CUMM (1.2-3.4); ABSOLUTE MONOCYTE COUNT 0.1 /CUMM (0.10-0.60); BASOPHIL % 0 % (0.0-2.0); EOSINOPHIL % 0 % (0-5); HEMATOCRIT 38.4 % (37-47); MEAN CORPUSCULAR HGB 27.1 PG (27.0-31.0); MEAN CORPUSCULAR VOLUME 82.1 FL (81.0-99.0); MEAN PLATELET VOLUME 7.5 FL (7.4-10.4); PLATELET COUNT 308 /CUMM (130-400); RBC DISTRIBUTION WIDTH 17.4 % (11.5-14.5); RED BLOOD CELL CT 4.68 /CUMM (4.20-5.40); WHITE BLOOD CELL COUNT 7.1 /CUMM (4.8-10.8)
[2017-09-15 09:56] LABS: GRANULOCYTE % 93.3 % (42.2-75.2)
--- NOTE | 2017-09-15 10:30 | Cons- Pulmonary ---
General Information and HPI Consulting Request Date of Consult: 09/15/17 Requested By: Dr. Bonilla Reason for Consult: COPD exacerbation Source of Information: patient Exam Limitations: no limitations History of Present Illness: 77 year old woman. Known to me from the office. Severe Emphysema on PFTs. Hx of CAD, COPD on o2, Current smoker with PMHx of COPD on Spiriva, Advair, ProAir for rescue and nebulizer therapy as needed, nocturnal O2. Hx of GIST tx with Gleevec, CAD s/p stent placement at 2007. Patient is compliant with her current medications. Uses appropriate technique. wbc 12>7 afebrile cxr - hyperinflation, cardiomegaly. no cp, +dyspnea, +cough, +wheezing, no sick contacts, no travel hx, no lentz, no n/ v/d/c. This admission meds -spiriva -mucinex -lovenox -zetia -zithromax -plavix -proventil -solumedrol -symbicort -nicotine patch Allergies/Medications Allergies: Coded Allergies: No Known Allergies (08/04/17) Home Med List: Albuterol Sulfate 2.5 MG/0.5 ML VIAL.NEB 1 PUFF INH 4XDAILY PRN COPD ( Reported) Albuterol Sulfate (Proair Respiclick) 90 MCG AER.POW.BA 2 PUFF INH PRN COPD ( Reported) Clopidogrel Bisulfate (Clopidogrel) 75 MG TABLET 1 TAB PO DAILY HEART ( Reported) Ezetimibe (Zetia) 10 MG TABLET 1 TAB PO DAILY CHOLESTEROL (Reported) Fluticasone/Salmeterol (Advair 250-50 Diskus) 250 MCG-50 MCG/DOSE BLST.W.DEV 1 PUFF PO BID COPD (Reported) Tiotropium [place] (Spiriva) 18 MCG CAP.W.DEV 1 CAP INH DAILY COPD (Reported) Current Medications: Current Medications Sig/Mitch Start time Last Medication Dose Route Stop Time Status Admin Albuterol Sulfate 3 ML EVERY 4 HRS/AWAKE 09/15 0800 AC 09/15 INH 0803 Albuterol Sulfate 3 ML Q4H 09/15 0245 DC INH Albuterol Sulfate 3 ML Q4H 09/14 2200 CAN INH Albuterol Sulfate 3 ML ONCE ONE 09/14 1615 DC 09/14 INH 09/14 1616 1615 Azithromycin 500 MG DAILY 09/15 1000 AC 04 Dextrose/Water 250 ML IV 0942 Budesonide/ 2 PUF BID 09/14 2200 AC 09/15 Formoterol Fumarate INH 0937 Clopidogrel Bisulfate 75 MG DAILY 09/15 1000 AC 09/15 PO 0936 Dextrose/Water 1,000 ML SEE RATE 09/14 2030 CAN IV Enoxaparin Sodium 40 MG DAILY 09/15 1000 AC 09/15 SC 0940 Ezetimibe 10 MG DAILY 09/15 1000 AC 09/15 PO 0936 Guaifenesin 600 MG Q12 09/15 1000 AC 09/15 PO 0937 Ipratropium [place] 2.5 ML ONCE ONE 09/14 1615 DC 04 INH 09/14 1616 1615 Methylprednisolone 40 MG Q8 09/15 0600 AC 09/15 IV 0511 Methylprednisolone 0 .STK-MED ONE 09/14 1627 DC .ROUTE Methylprednisolone 125 MG ONCE ONE 09/14 1615 DC 09/14 IV 09/14 1616 1625 Nicotine 7 MG DAILY 09/14 2046 AC 09/15 TOP 0937 Tiotropium [place] 1 PUF DAILY 09/15 1000 AC 09/15 INH 0936 Review of Systems Comments 18 pt ros reviewed pertinent positives and negatives in chart, otherwise negative Past History Travel History Traveled to [place] past 21 day No Medical History Blood Transfusion Hx: No Neurological: NONE EENT: cataracts, LEFT EAR [place] Cardiovascular: CAD, hyperlipidemia, CARDIAC STENTS Respiratory: COPD Gastrointestinal: PANCREATIC TUMOR CHOLECYSTECTOMY Hepatic: NONE Renal: nephrolithiasis Musculoskeletal: NONE Psychiatric: NONE Endocrine: NONE Blood Disorders: NONE Cancer(s): pancreatic cancer 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 Home Who Do You Live With? self Services at Home: Oxygen Primary Language: [place] Islander Smoking Status: Current Everyday Smoker (50 pack year hx) ETOH Use: denies use Illicit Drug Use: denies illicit drug use Living Will? yes Functional Ability ADLs Independent: dressing, eating, toileting, bathing. Ambulation: independent IADLs Independent: shopping, housework, finances, food prep, telephone, transportation , medication admin. Exam & Diagnostic Data Last 24 Hrs of Vital Signs/I&O Vital Signs Date Time Temp Pulse Resp B/P B/P Pulse O2 O2 Flow FiO2 Mean Ox Delivery Rate 09/15 08 95 Nasal 3.0L Cannula 09/15 0700 97.9 92 20 132/86 96 Nasal 3.0L Cannula 09/15 0000 Nasal 3.0L Cannula 09/14 2210 98.0 104 20 140/80 96 Nasal Cannula 09/147 Nasal 5.0L Cannula 09/14 2056 Nasal 5.0L Cannula 09/15 2007 97.1 104 21 133/78 94 Nasal 2.0L Cannula 09/14 1834 98.2 09/14 1834 Nasal 2.0L Cannula 09/14 1806 122/74 09/14 1800 103 19 96 Nasal 2.0L Cannula 09/14 1626 Nasal 2.0L Cannula 09/14 1615 95 Nasal 4.0L Cannula 09/14 1555 98.4 09/14 1549 110 24 158/82 95 Nasal 2.0L Cannula Intake & Output 09/15 1600 09/15 0800 09/15 0000 Intake Total 360 Output Total 300 Balance 60 Intake, Oral 360 Output, Urine 300 Patient 116 lb Weight Weight Reported by Patient Measurement Method Physical Exam Other Physical Findings: Generally - Awake, alert and comfortable without distress Head and neck - normocephalic, atraumatic, EOMI grossly intact Cardiovascular - S1, S2, no murmurs, rubs or gallops Lungs - reduced breath sounds on left, some egophany, rhonchi Abdomen - Bowel sounds positive, soft, non-tender Extremities - without edema Last 48 Hrs of Labs/Devin: Laboratory Tests 09/15/17 0745: CBC w Diff NO MAN DIFF REQ, RBC 4.68, MCV 82.1, MCH 27.1, MCHC 33.0, RDW 17.4 H , MPV 7.5, Gran % 93.3 H, Lymphocytes % 5.8 L, Monocytes % 0.9 L, Eosinophils % 0, Basophils % 0, Absolute Granulocytes 6.6 H, Absolute Lymphocytes 0.4 L, Absolute Monocytes 0.1, Absolute Eosinophils 0, Absolute Basophils 0 09/14/17 2344: Troponin I 0.04 09/14/17 1653: Anion Gap 12, Estimated GFR 53 L, BUN/Creatinine Ratio 22.0, Glucose 116 H, Calcium 9.7, Total Bilirubin 0.6, AST 19, ALT 22, Alkaline Phosphatase 89, Troponin I 0.03, Total Protein 6.6, Albumin 3.8, Globulin 2.8, Albumin/Globulin Ratio 1.4 09/14/17 1606: PT 10.1, INR 0.93, APTT 25, CBC w Diff NO MAN DIFF REQ, RBC 4.77, MCV 81.6, MCH 26.6 L, MCHC 32.6 L, RDW 17.3 H, MPV 7.6, Gran % 94.3 H, Lymphocytes % 3.2 L, Monocytes % 2.1, Eosinophils % 0.2, Basophils % 0.2, Absolute Granulocytes 11.4 H, Absolute Lymphocytes 0.4 L, Absolute Monocytes 0.3, Absolute Eosinophils 0, Absolute Basophils 0 09/14/17 0600: Sodium Cancelled, Potassium Cancelled, Chloride Cancelled, Carbon Dioxide Cancelled, Anion Gap Cancelled, BUN Cancelled, Creatinine Cancelled, BUN/ Creatinine Ratio Cancelled Microbiology 09/15 514 URINE ROUT: Legionella Antigen - COMP 09/15 514 URINE ROUT: Streptococcus pneumoniae Antigen (M - COMP 09/15 514 NASOPHARYN: Influenza Virus A & B Rapid Smear - COMP Assessment/Plan Impression/Plan: Impression 77 year old woman. Known to me from the office. Severe Emphysema on PFTs. Hx of CAD, COPD on o2, Current smoker with PMHx of COPD on Spiriva, Advair, ProAir for rescue and nebulizer therapy as needed, nocturnal O2. Hx of GIST tx with Gleevec, CAD s/p stent placement at 2007. Patient is compliant with her current medications. Uses appropriate technique. wbc 12>7 afebrile cxr - hyperinflation, cardiomegaly. no cp, +dyspnea, +cough, +wheezing, no sick contacts, no travel hx, no lentz, no n/ v/d/c. This admission meds -spiriva -mucinex -lovenox -zetia -zithromax -plavix -proventil -solumedrol -symbicort -nicotine patch Plan -continue solumedrol - reduce to 40mg iv q12h -trc/nebs -cont inhalers -check BNP -alert Dr. Hogue of admission -out of bed to chair -DVT prophylaxis at all times Consult Acknowledgment - Thank you for your consult request.
[2017-09-15 13:56] VITALS: BP 148/80
--- NOTE | 2017-09-15 17:29 | Discharge Summary ---
Visit Information Visit Dates Admission Date: 09/14/17 Hospital Course Course Attending Physician: Nilson Bonilla MD Primary Care Physician: Gabriella Kitchen DO Allergies: Coded Allergies: No Known Allergies (08/04/17) Disposition Summary Disposition Discharge Disposition: home or self care Discharge Instructions General Discharge Information Code Status: Full Code Patient's Diet: Heart Healthy Patient's Activity: As Tolerated Medications at Discharge Discharge Medications: Stop taking the following medications: Cephalexin (Keflex) 500 MG CAPSULE ORAL 4 TIMES A DAY Qty = 28 Sulfamethoxazole/Trimethoprim (Bactrim Ds Tablet) 800 MG-160 MG TABLET ORAL TWICE DAILY Qty = 14 Furosemide (Furosemide) (Unknown Strength) TABLET Qty = 15 Fluoxetine HCl (Fluoxetine HCl) (Unknown Strength) CAPSULE Days = 14 Continue taking these medications: Clopidogrel Bisulfate (Clopidogrel) 75 MG TABLET 1 Tablet ORAL DAILY Qty = 30 Comments: last given 07/03/17 @ 1029 Fluticasone/Salmeterol (Advair 250-50 Diskus) 250 MCG-50 MCG/DOSE BLST.W.DEV 1 PUFF ORAL TWICE DAILY Comments: Last Taken: NOT GIVEN IN HOSPITAL Time: Albuterol Sulfate (Albuterol Sulfate) 2.5 MG/0.5 ML VIAL.NEB 1 PUFF Inhale through mouth 4XDAILY as needed for COPD Comments: last given 07/03/17 @ 0904 Tiotropium [place] (Spiriva) 18 MCG CAP.W.DEV 1 Capsule Inhale through mouth DAILY Ezetimibe (Zetia) 10 MG TABLET 1 Tablet ORAL DAILY Albuterol Sulfate (Proair Respiclick) 90 MCG AER.POW.BA 2 PUFF Inhale through mouth as needed for COPD Copies To: Gabriella Kitchen DO; Melissa KAUR,Dallin
--- NOTE | 2017-09-15 17:56 | Patient Discharge Instructions ---
Discharge Instructions General Discharge Information You were seen/treated for: COPD exacerbation Hyperkalemia Special Instructions: -Please follow-up with your PCP within a week of discharge. -Please follow-up with your Dramatic Coach, Dr. Torres within a week of discharge. -Please follow-up with COPD chronic (wellness clinic) within a week of discharge. -Please take your medications as instructed. -Please return to the hospital if your symptoms not improve/worsen. Diet Continue normal diet: Yes Recommended Diet: Heart Healthy Activity Additional ACTIVITY Info: As tolerated Acute Coronary Syndrome Inclusion Criteria At DC or during hospital stay patient has or had the following: ACS DIAGNOSIS No Discharge Core Measures Meds if any: Prescribed or Continued at Discharge Meds if any: NOT Prescribed or Continued at Discharge Congestive Heart Failure Inclusion Criteria At DC or during hospital stay patient has or had the following: CHF DIAGNOSIS No Discharge Core Measures Meds if any: Prescribed or Continued at Discharge Meds if any: NOT Prescribed or Continued at Discharge Cerebrovascular accident Inclusion Criteria At DC or during hospital stay patient has or had the following: CVA/TIA Diagnosis No Discharge Core Measures Meds if any: Prescribed or Continued at Discharge Meds if any: NOT Prescribed or Continued at Discharge Venous thromboembolism Inclusion Criteria VTE Diagnosis No VTE Type NONE VTE Confirmed by (Test) NONE Discharge Core Measures - Per Current guidelines, there needs to be overlap - treatment for the first 5 days of Warfarin therapy. - If discharged on Warfarin prior to 5 days of - overlap therapy, the patient will need to be - assessed for post discharge needs including - *Post discharge parental anticoagulation - *Warfarin and/or parental anticoagulation education - *Follow up date to check INR post discharge At least 5 days overlap therapy as Inpatient No Meds if any: Prescribed or Continued at Discharge Note: Overlap Therapy is Warfarin and Anticoagulant Meds if any: NOT Prescribed or Continued at Discharge
--- NOTE | 2017-09-15 20:20 | Cons- Cardiology ---
General Information and HPI Consulting Request Date of Consult: 09/15/17 Requested By: Nilson Bonilla MD History of Present Illness: This patient is a 77 year old female with history of coronary artery disease status post PCI in 2007 and COPD. She presented to [facility] with worsening shortness of breath and a productive cough. She also reports a discomfort in her mid chest that is non-exertional and non-pleuritic. She does not think the discomfort is related to coughing. On the day of admission this discomfort was present for most of the day without any electrocardiographic changes or rise in cardiac enzymes. It should be noted that this patient just recently underwent a cardiac catheterization that did not show any flow limiting coronary artery disease. The patient otherwise denies lightheadedness or palpitations. Allergies/Medications Allergies: Coded Allergies: No Known Allergies (08/04/17) Home Med List: Albuterol Sulfate 2.5 MG/0.5 ML VIAL.NEB 1 PUFF INH 4XDAILY PRN COPD ( Reported) Albuterol Sulfate (Proair Respiclick) 90 MCG AER.POW.BA 2 PUFF INH PRN COPD ( Reported) Clopidogrel Bisulfate (Clopidogrel) 75 MG TABLET 1 TAB PO DAILY HEART ( Reported) Ezetimibe (Zetia) 10 MG TABLET 1 TAB PO DAILY CHOLESTEROL (Reported) Fluticasone/Salmeterol (Advair 250-50 Diskus) 250 MCG-50 MCG/DOSE BLST.W.DEV 1 PUFF PO BID COPD (Reported) Tiotropium [place] (Spiriva) 18 MCG CAP.W.DEV 1 CAP INH DAILY COPD (Reported) Review of Systems Review of Systems: A review of systems is unremarkable. 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 Home Who Do You Live With? self Services at Home: Oxygen Primary Language: Malagasy Smoking Status: Current Everyday Smoker (50 pack year hx) ETOH Use: denies use Illicit Drug Use: denies illicit drug use Living Will? yes Functional Ability ADLs Independent: dressing, eating, toileting, bathing. Ambulation: independent IADLs Independent: shopping, housework, finances, food prep, telephone, transportation , medication admin. Exam & Diagnostic Data Vital Signs and I&O Vital Signs Date Time Temp Pulse Resp B/P B/P Pulse O2 O2 Flow FiO2 Mean Ox Delivery Rate 09/15 1722 97 Nasal 3.0L Cannula 09/15 1356 97.8 108 24 148/80 97 Nasal 3.0L Cannula 09/15 0803 93 Nasal 3.0L Cannula 09/15 0800 95 Nasal 3.0L Cannula 09/15 07 97.9 92 20 132/86 96 Nasal 3.0L Cannula 09/15 0000 Nasal 3.0L Cannula Intake & Output 09/15 1600 09/15 0800 09/15 0000 09/14 1600 09/14 0809/14 0000 Intake Total 240 360 Output Total 300 Balance 240 60 Intake, Oral 240 360 Output, Urine 300 Patient 116 lb 116 lb Weight Weight Reported by Patient Reported by Patient Measurement Method Physical Exam: General: WD/WN female in NAD; alert and oriented x 3 HEENT: NC/AT, PERRL, EOMI Neck: no JVD, no carotid bruit Heart: RRR Lungs: decreased breath sounds bilaterally Abdomen: soft, NT, +ve bowel sounds Extremities: no edema Assessment/Plan Assessment/Plan * This patient does have shortness of breath and a mildly increased BNP but I do not see clinical evidence of decompensated CHF. I believe this patient has COPD. Her chest discomfort may be related to an infection that developed over her right salivary gland and radiated toward her upper chest. I am more suspicious that this patient was really experiencing bronchospasm rather than a musculoskeletal pain from inflammation, coughing or pain from myocardial ischemia. Continue her usual medications without change. Consult Acknowledgment - Thank you for your consult request.
[2017-09-15 22:41] VITALS: BP 140/80
[2017-09-16 06:19] VITALS: BP 132/76
--- NOTE | 2017-09-16 13:18 | PN- Pulmonary ---
Subjective HPI/Critical Care Issues: Still has dyspnea with mild wheezing couging occ Objective Current Medications: Current Medications Sig/Mitch Start time Last Medication Dose Route Stop Time Status Admin Albuterol Sulfate 3 ML EVERY 4 HRS/AWAKE 09/15 0800 AC 09/16 INH 1131 Azithromycin 250 MG DAILY 09/16 1000 AC 09/16 PO 1031 Azithromycin 500 MG DAILY 09/15 1000 DC 09/15 Dextrose/Water 250 ML IV 0942 Budesonide/ 2 PUF BID 09/14 2200 AC 09/16 Formoterol Fumarate INH 1035 Clopidogrel Bisulfate 75 MG DAILY 09/15 1000 AC 09/16 PO 1031 Enoxaparin Sodium 40 MG DAILY 09/15 1000 AC 09/16 SC 1032 Ezetimibe 10 MG DAILY 09/15 1000 AC 09/16 PO 1032 Guaifenesin 600 MG Q12 09/15 1000 AC 09/16 PO 1032 Methylprednisolone 40 MG Q12 09/15 2200 AC 09/16 IV 1033 Nicotine 7 MG DAILY 09/14 2046 AC 09/16 TOP 1034 Patient Medication 1 ED ONE ONE 09/15 1330 DC Teaching ED 09/15 1331 Tiotropium [place] 1 PUF DAILY 09/15 1000 AC 09/16 INH 1037 Vital Signs & I&O Last 24 Hrs of Vitals and I&O: Vital Signs Date Time Temp Pulse Resp B/P B/P Pulse O2 O2 Flow FiO2 Mean Ox Delivery Rate 09/16 1132 95 Nasal 2.0L Cannula 09/16 0800 Nasal 2.0L Cannula 09/16 0619 98.0 80 18 132/76 96 Room Air 09/16 0000 Nasal 2.0L Cannula 09/15 2241 97.8 97 18 140/80 95 Room Air 09/15 1722 97 Nasal 3.0L Cannula 09/15 1356 97.8 108 24 148/80 97 Nasal 3.0L Cannula Intake & Output 09/16 1600 09/16 0800 09/16 0000 Intake Total 300 110 120 Output Total 600 Balance -300 110 120 Intake, IV 10 20 Intake, Oral 300 100 100 Output, Urine 600 Impression/Plan Impression/Plan Impression/Plan: Generally - Awake, alert and comfortable without distress Head and neck - normocephalic, atraumatic, EOMI grossly intact Cardiovascular - S1, S2, no murmurs, rubs or gallops Lungs - reduced breath sounds on left, some egophany, rhonchi, mild wheezing Abdomen - Bowel sounds positive, soft, non-tender Extremities - without edema IMPRESSION Severe copd with acute exacerbation Ongoing smoking History of GIST on Gleevec CAD history REC COnt current meds Change to po prednisone 50 mg nebs Cont all other meds including antiplatelet rx Pt counselled about her smoking
[2017-09-16 14:11] VITALS: BP 130/70
--- NOTE | 2017-09-16 14:20 | PN- Att Addend ---
Attending Addendum Attending Brief Note Patient seen and examined. Plan of care discussed with the medical team and the patient. Available lab work and radiology test reports were reviewed. Patient continues to report the cough which is mostly dry. She denies any fever or chills. Her vital signs occur in stable. Saturation is 94% on 2 L by nasal cannula. Exam: General: Patient awake alert oriented without any distress CVS: S1 plus S2 without any murmur or gallops Chest: Overall decreased air entry; Few scattered crepitation with expiratory prolongation and scattered wheeze. There is no respiratory distress. 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: Awake alert oriented without any focal neuro deficit and follows commands appropriately Extremities: No edema; no clubbing or cyanosis noted Assessment COPD exacerbation Mild hypoxia History of smoking Plan Agree with switching Solu-Medrol to prednisone; Continue prednisone and taper gradually Taper oxygen as tolerated Continue TRC nebs Increase ambulation Current Medications Sig/Mitch Start time Last Medication Dose Route Stop Time Status Admin Albuterol Sulfate 3 ML EVERY 4 HRS/AWAKE 09/15 0800 AC 09/16 INH 1131 Azithromycin 250 MG DAILY 09/16 1000 AC 09/16 PO 1031 Budesonide/ 2 PUF BID 09/14 2200 AC 09/16 Formoterol Fumarate INH 1035 Clopidogrel Bisulfate 75 MG DAILY 09/15 1000 AC 09/16 PO 1031 Enoxaparin Sodium 40 MG DAILY 09/15 1000 AC 09/16 SC 1032 Ezetimibe 10 MG DAILY 09/15 1000 AC 09/16 PO 1032 Guaifenesin 600 MG Q12 09/15 1000 AC 09/16 PO 1032 Methylprednisolone 40 MG Q12 09/15 2200 AC 09/16 IV 1033 Nicotine 7 MG DAILY 09/14 2046 AC 09/16 TOP 1034 Tiotropium [place] 1 PUF DAILY 09/15 1000 AC 09/16 INH 1037 Laboratory Tests 09/15/17 0745: CBC w Diff NO MAN DIFF REQ, RBC 4.68, MCV 82.1, MCH 27.1, MCHC 33.0, RDW 17.4 H , MPV 7.5, Gran % 93.3 H, Lymphocytes % 5.8 L, Monocytes % 0.9 L, Eosinophils % 0, Basophils % 0, Absolute Granulocytes 6.6 H, Absolute Lymphocytes 0.4 L, Absolute Monocytes 0.1, Absolute Eosinophils 0, Absolute Basophils 0 09/14/17 2344: Troponin I 0.04, Dpc-Z-Kllljjahlsy Pept 2000 H 09/14/17 1653: Anion Gap 12, Estimated GFR 53 L, BUN/Creatinine Ratio 22.0, Glucose 116 H, Calcium 9.7, Total Bilirubin 0.6, AST 19, ALT 22, Alkaline Phosphatase 89, Troponin I 0.03, Total Protein 6.6, Albumin 3.8, Globulin 2.8, Albumin/Globulin Ratio 1.4 09/14/17 1606: PT 10.1, INR 0.93, APTT 25, CBC w Diff NO MAN DIFF REQ, RBC 4.77, MCV 81.6, MCH 26.6 L, MCHC 32.6 L, RDW 17.3 H, MPV 7.6, Gran % 94.3 H, Lymphocytes % 3.2 L, Monocytes % 2.1, Eosinophils % 0.2, Basophils % 0.2, Absolute Granulocytes 11.4 H, Absolute Lymphocytes 0.4 L, Absolute Monocytes 0.3, Absolute Eosinophils 0, Absolute Basophils 0 09/14/17 0600: Sodium Cancelled, Potassium Cancelled, Chloride Cancelled, Carbon Dioxide Cancelled, Anion Gap Cancelled, BUN Cancelled, Creatinine Cancelled, BUN/ Creatinine Ratio Cancelled Microbiology 09/15 514 URINE ROUT: Legionella Antigen - COMP 09/15 514 URINE ROUT: Streptococcus pneumoniae Antigen (M - COMP 09/15 514 NASOPHARYN: Influenza Virus A & B Rapid Smear - COMP 09/14 165 BLOOD: Blood Culture - RES 09/14 160 BLOOD: Blood Culture - RES Vital Signs Date Time Temp Pulse Resp B/P B/P Pulse O2 O2 Flow FiO2 Mean Ox Delivery Rate 09/16 1411 99.0 106 22 130/70 94 09/16 1132 95 Nasal 2.0L Cannula 09/16 0800 Nasal 2.0L Cannula 09/16 0619 98.0 80 18 132/76 96 Room Air 09/16 0000 Nasal 2.0L Cannula 09/15 2241 97.8 97 18 140/80 95 Room Air 09/15 1722 97 Nasal 3.0L Cannula Intake & Output 09/16 1600 09/16 0800 09/16 0000 Intake Total 300 110 120 Output Total 600 Balance -300 110 120 Intake, IV 10 20 Intake, Oral 300 100 100 Output, Urine 600
--- NOTE | 2017-09-16 17:09 | RADIOLOGY REPORT ---
EXAMINATION: XR PORTABLE CHEST CLINICAL INFORMATION: Rule out acute lung pathology. COMPARISON: Chest radiograph 09/14/2017. TECHNIQUE: Portable frontal view of the chest was obtained. FINDINGS: The lungs are clear without consolidation, edema, or effusion. There are background changes of emphysema. There is no pneumothorax. The cardiomediastinal silhouette appears normal. The thoracic aorta is calcified. IMPRESSION: No active disease in the chest.
[2017-09-16 22:30] VITALS: BP 158/88
[2017-09-17 06:20] VITALS: BP 164/78
--- NOTE | 2017-09-17 09:36 | PN- Housestaff ---
Subjective Follow-up For: COPD exacerbation Subjective: No overnight events. Patient is pretty short of breath this morning. She has no chest pain though. She seems mildly uncomfortable. No other complaints. Review of Systems Constitutional: Reports: no symptoms. EENTM: Reports: no symptoms. Cardiovascular: Reports: no symptoms. Respiratory: Reports: see HPI. Gastrointestinal: Reports: no symptoms. Genitourinary: Reports: no symptoms. Musculoskeletal: Reports: no symptoms. Skin: Reports: no symptoms. Neurological/Psychological: Reports: no symptoms. Hematologic/Endocrine: Reports: no symptoms. Immunologic/Allergic: Reports: no symptoms. Objective Last 24 Hrs of Vital Signs/I&O Vital Signs Date Time Temp Pulse Resp B/P B/P Pulse O2 O2 Flow FiO2 Mean Ox Delivery Rate 09/18 619 98.1 85 20 164/78 94 Nasal Cannula 09/17 0000 Nasal 3.0L Cannula 09/16 2230 97.8 108 22 158/88 93 Nasal 3.0L Cannula 09/16 2018 97 Nasal 2.0L Cannula 09/16 1600 92 Nasal 2.0L Cannula 09/16 1600 89 Nasal 2.0L Cannula 09/16 1411 99.0 106 22 130/70 94 09/16 1132 95 Nasal 2.0L Cannula Intake & Output 09/17 1600 09/17 0800 09/17 0000 Intake Total 800 Output Total 250 Balance 550 Intake, Oral 800 Output, Urine 250 Physical Exam General Appearance: Alert, Oriented X3, Cooperative, Mild Distress Cardiovascular: Regular Rate, Normal S1, Normal S2 Lungs: moderate wheezing Abdomen: Normal Bowel Sounds, Soft, No Tenderness Extremities: No Edema, Normal Pulses, No Tenderness/Swelling Current Medications: Current Medications Sig/Mitch Start time Last Medication Dose Route Stop Time Status Admin Albuterol Sulfate 3 ML EVERY 4 HRS/AWAKE 09/15 08 AC 09/16 INH 2018 Azithromycin 250 MG DAILY 09/16 1000 AC 09/16 PO 1031 Budesonide/ 2 PUF BID 09/14 2199 AC 09/16 Formoterol Fumarate INH 2102 Clopidogrel Bisulfate 75 MG DAILY 09/15 1000 AC 09/16 PO 1031 Docusate Sodium 100 MG DAILY 09/17 2019 AC 09/16 PO 210 Enoxaparin Sodium 40 MG DAILY 09/15 1000 AC 09/16 SC 1032 Ezetimibe 10 MG DAILY 09/15 1000 AC 09/16 PO 1032 Guaifenesin 600 MG Q12 09/15 1000 AC 09/16 PO 2102 Methylprednisolone 40 MG Q12 09/15 2200 DC 09/16 IV 2102 Nicotine 7 MG DAILY 09/14 2045 AC 09/16 TOP 1034 Prednisone 50 MG DAILY 09/17 1000 AC PO Senna 187 MG AT BEDTIME 09/16 2200 AC 09/16 PO 2128 Tiotropium [place] 1 PUF DAILY 09/15 1000 AC 09/16 INH 1037 Assessment/Plan Assessment: Patient is a 77-year-old female with a PMH significant for CAD status post stent placement in 2007 with a repeat cardiac catheterization showing no abnormalities , COPD on 2-3 L O2 nasal cannula when necessary, 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 Problem list #Acute on chronic respiratory failure #COPD exacerbation #Chronic medical problems #Elevated Pro BNP #Nicotine Dependance. Plan -Continue on general medicine -TRC/nebs -IV methylprednisone 40 mg today -azithromycin PO -Appreciate pulmonology recommendations -Guaifenesin -Right neck cellulitis, no need to continue antibiotic therapy -ACS ruled out with negative troponins and EKGs 2. -Mentioned to Dr Pak (Dr Winston away) that patient admitted. - May consider Repeat Echocardiogram, last one on 03/27/2017, showed Stage one diastolic dysfunction. -Smoking cessation counselling. -Continue home medications Diet: Heart healthy DVT prophylaxis: Lovenox, Alps CODE STATUS: DNR/DNI Problem List: 1. COPD exacerbation Pain Ratin Pain Location: no Pain Goal: Remain pain free Pain Plan: see a/p Tomorrow's Labs & Rationales: no
--- NOTE | 2017-09-17 12:15 | PN- Pulmonary ---
Subjective HPI/Critical Care Issues: DOing about the same Sig wheezing episode noted last night Reports: no symptoms. EENTM: Reports: no symptoms. Cardiovascular: Reports: no symptoms. Respiratory: Reports: see HPI. Gastrointestinal: Reports: no symptoms. Genitourinary: Reports: no symptoms. Musculoskeletal: Reports: no symptoms. Skin: Reports: no symptoms. Neurological/Psychological: Reports: no symptoms. Hematologic/Endocrine: Reports: no symptoms. Immunologic/Allergic: Reports: no symptoms. Objective Current Medications: Current Medications Sig/Mitch Start time Last Medication Dose Route Stop Time Status Admin Albuterol Sulfate 3 ML EVERY 4 HRS/AWAKE 09/15 08 AC 09/16 INH 2018 Azithromycin 250 MG DAILY 09/16 1000 AC 09/17 PO 0950 Budesonide/ 2 PUF BID 09/14 2200 AC 09/17 Formoterol Fumarate INH 0951 Clopidogrel Bisulfate 75 MG DAILY 09/15 1000 AC 09/17 PO 0949 Docusate Sodium 100 MG DAILY 09/16 2020 AC 09/17 PO 0949 Enoxaparin Sodium 40 MG DAILY 09/15 1000 AC 09/17 SC 0952 Ezetimibe 10 MG DAILY 09/15 1000 AC 09/17 PO 0949 Guaifenesin 600 MG Q12 09/15 1000 AC 09/17 PO 0949 Methylprednisolone 40 MG DAILY 09/17 1000 AC 09/17 IV 0950 Methylprednisolone 40 MG Q12 09/15 2200 DC 09/16 IV 2102 Nicotine 7 MG DAILY 09/14 2046 AC 09/17 TOP 0952 Prednisone 50 MG DAILY 09/17 1000 CAN PO Senna 187 MG AT BEDTIME 09/16 2200 AC 09/16 PO 2128 Tiotropium [place] 1 PUF DAILY 09/15 1000 AC 09/17 INH 0950 Vital Signs & I&O Last 24 Hrs of Vitals and I&O: Vital Signs Date Time Temp Pulse Resp B/P B/P Pulse O2 O2 Flow FiO2 Mean Ox Delivery Rate 09/17 0800 Nasal 3.0L Cannula 09/17 0620 98.1 85 20 164/78 94 Nasal Cannula 09/17 0000 Nasal 3.0L Cannula 09/16 2230 97.8 108 22 158/88 93 Nasal 3.0L Cannula 09/16 2019 97 Nasal 2.0L Cannula 09/16 1600 92 Nasal 2.0L Cannula 09/16 1600 89 Nasal 2.0L Cannula 09/16 1411 99.0 106 22 130/70 94 Intake & Output 09/17 1600 09/17 0800 09/17 0000 Intake Total 300 800 Output Total 400 250 Balance -100 550 Intake, Oral 300 800 Output, Urine 400 250 Microbiology Date/Time Procedure - Status Source Growth 09/15 514 Legionella Antigen - COMP URINE ROUT 09/15 514 Streptococcus pneumoniae Antigen (M - COMP URINE ROUT 09/15 514 Influenza Virus A & B Rapid Smear - COMP NASOPHARYN 09/14 1653 Blood Culture - RES BLOOD 09/14 1606 Blood Culture - RES BLOOD Impression/Plan Impression/Plan Impression/Plan: Generally - Awake, alert and comfortable without distress Head and neck - normocephalic, atraumatic, EOMI grossly intact Cardiovascular - S1, S2, no murmurs, rubs or gallops Lungs - reduced breath sounds on left, some egophany, rhonchi, mild wheezing Abdomen - Bowel sounds positive, soft, non-tender Extremities - without edema IMPRESSION Severe copd with acute exacerbation Ongoing smoking 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
--- NOTE | 2017-09-17 12:33 | PN- Att Addend ---
Attending Addendum Attending Brief Note Patient seen and examined. Plan of care discussed with the medical team and the patient. Available lab work and radiology test reports were reviewed. Patient states that she had a terrible night last night. She had a distal her sleep and also has been getting very short of breath on going to bathroom. At rest she appears comfortable and without any respiratory distress. Patient continues to report the cough which is mostly dry. She denies any fever or chills. Her vital signs occur in stable. Saturation is 94% on 3 L by nasal cannula. Her oxygen requirement has increased to 3 L from 2 L yesterday. Exam: General: Patient awake alert oriented without any distress CVS: S1 plus S2 without any murmur or gallops Chest: Overall decreased air entry; Few scattered crepitation with expiratory prolongation and scattered wheeze. There is no respiratory distress. Abdomen: Soft non-tender, bowel sound present, no guarding or rebound [employer] W[employer]ER: Awake alert oriented without any focal neuro deficit and follows commands appropriately Extremities: No edema; no clubbing or cyanosis noted Assessment COPD exacerbation Mild hypoxia History of smoking Plan Continue Solu-Medrol; Continue azithromycin for 5 days Taper oxygen as tolerated Continue TRC nebs Increase ambulation Intake & Output 09/17 1600 09/17 0800 09/17 0000 Intake Total 300 800 Output Total 400 250 Balance -100 550 Intake, Oral 300 800 Output, Urine 400 250 Laboratory Tests 09/15/17 0745: CBC w Diff NO MAN DIFF REQ, RBC 4.68, MCV 82.1, MCH 27.1, MCHC 33.0, RDW 17.4 H , MPV 7.5, Gran % 93.3 H, Lymphocytes % 5.8 L, Monocytes % 0.9 L, Eosinophils % 0, Basophils % 0, Absolute Granulocytes 6.6 H, Absolute Lymphocytes 0.4 L, Absolute Monocytes 0.1, Absolute Eosinophils 0, Absolute Basophils 0 09/14/17 2344: Troponin I 0.04, Wqs-G-Oxapifsxoei Pept 2000 H 09/14/17 1653: Anion Gap 12, Estimated GFR 53 L, BUN/Creatinine Ratio 22.0, Glucose 116 H, Calcium 9.7, Total Bilirubin 0.6, AST 19, ALT 22, Alkaline Phosphatase 89, Troponin I 0.03, Total Protein 6.6, Albumin 3.8, Globulin 2.8, Albumin/Globulin Ratio 1.4 09/14/171605: PT 10.1, INR 0.93, APTT 25, CBC w Diff NO MAN DIFF REQ, RBC 4.77, MCV 81.6, MCH 26.6 L, MCHC 32.6 L, RDW 17.3 H, MPV 7.6, Gran % 94.3 H, Lymphocytes % 3.2 L, Monocytes % 2.1, Eosinophils % 0.2, Basophils % 0.2, Absolute Granulocytes 11.4 H, Absolute Lymphocytes 0.4 L, Absolute Monocytes 0.3, Absolute Eosinophils 0, Absolute Basophils 0 Microbiology 09/15 514 URINE ROUT: Legionella Antigen - COMP 09/15 514 URINE ROUT: Streptococcus pneumoniae Antigen (M - COMP 09/15 514 NASOPHARYN: Influenza Virus A & B Rapid Smear - COMP 09/14 1652 BLOOD: Blood Culture - RES 09/14 1605 BLOOD: Blood Culture - RES Vital Signs Date Time Temp Pulse Resp B/P B/P Pulse O2 O2 Flow FiO2 Mean Ox Delivery Rate 09/17 08 Nasal 3.0L Cannula 09/17 06 98.1 85 20 164/78 94 Nasal Cannula 09/17 0000 Nasal 3.0L Cannula 09/16 2230 97.8 108 22 158/88 93 Nasal 3.0L Cannula 09/16 2019 97 Nasal 2.0L Cannula 09/16 1600 92 Nasal 2.0L Cannula 09/16 1600 89 Nasal 2.0L Cannula 09/16 1411 99.0 106 22 130/70 94 Intake & Output 09/17 1600 09/17 0800 09/17 0000 Intake Total 300 800 Output Total 400 250 Balance -100 550 Intake, Oral 300 800 Output, Urine 400 250 Chest x-ray yesterday did not show any acute process
[2017-09-17 15:09] VITALS: BP 130/80
[2017-09-17 22:39] VITALS: BP 116/54
[2017-09-18 06:35] VITALS: BP 132/86
--- NOTE | 2017-09-18 07:15 | PN- Housestaff ---
See Addendum Subjective Follow-up For: COPD exacerbation. Subjective: Mrs. Cassidy was seen and examined this morning. She is resting comfortably on the chair beside the bed. She is surprised about the lack of progress that she is made as it relates to her dyspnea on exertion. At rest she endorses no complaints however this morning after using the restroom she is complaining to be dyspneic and also experienced some TAMAYO. She denies any fever, chills, nausea , vomiting. Endorses a mild cough with minimal sputum production. Review of Systems Constitutional: Reports: see HPI. Objective Last 24 Hrs of Vital Signs/I&O Vital Signs Date Time Temp Pulse Resp B/P B/P Pulse O2 O2 Flow FiO2 Mean Ox Delivery Rate 09/19 851 96 Nasal 2.0L Cannula 09/19 799 Nasal 3.0L Cannula 09/18 0635 97.8 82 20 132/86 98 Nasal 2.0L Cannula 09/18 0000 Nasal 2.0L Cannula 09/17 2239 97.8 92 20 116/54 97 Nasal 2.0L Cannula 09/17 1630 98 Nasal 3.0L Cannula 09/17 1600 95 Nasal 2.0L Cannula 09/17 1509 97.4 108 24 130/80 95 09/17 1250 95 Nasal 2.0L Cannula Intake & Output 09/18 1600 09/18 0800 09/18 0000 Intake Total 200 360 800 Output Total 200 300 Balance 0 360 500 Intake, Oral 200 360 800 Output, Urine 200 300 Physical Exam General Appearance: Alert, Oriented X3, Cooperative, NC in place Skin: No Rashes Skin Temp/Moisture Exam: Warm/Dry HEENT: Mucous Membr. moist/pink Cardiovascular: Regular Rate, Normal S1, Normal S2 Lungs: Decreased air movement. Mild wheezing noted. Abdomen: Normal Bowel Sounds, Soft, No Tenderness Neurological: Normal Speech, Strength at 5/5 X4 Ext Extremities: No Cyanosis, No Edema Vascular: Normal Pulses Current Medications: Current Medications Sig/Mitch Start time Last Medication Dose Route Stop Time Status Admin Acetylcysteine 2 ML BID 09/18 1007 AC INH Albuterol Sulfate 3 ML EVERY 4 HRS/AWAKE 09/15 0800 AC 09/18 INH 1149 Azithromycin 250 MG DAILY 09/16 1000 AC 09/18 PO 0940 Budesonide/ 2 PUF BID 09/14 2200 AC 09/18 Formoterol Fumarate INH 0942 Cefuroxime Sodium 250 MG Q12 09/17 1316 AC 09/18 PO 0941 Clopidogrel Bisulfate 75 MG DAILY 09/15 1000 AC 09/18 PO 0940 Docusate Sodium 100 MG DAILY 09/16 2020 AC 09/18 PO 0940 Enoxaparin Sodium 40 MG DAILY 09/15 1000 AC 09/18 SC 0958 Ezetimibe 10 MG DAILY 09/15 1000 AC 09/18 PO 0940 Guaifenesin 600 MG Q12 09/15 1000 AC 09/18 PO 0940 Methylprednisolone 40 MG Q8H 09/18 1800 AC IV Methylprednisolone 40 MG DAILY 09/17 1000 DC 09/18 IV 0941 Nicotine 7 MG DAILY 09/14 2046 AC 09/18 TOP 0941 Senna 187 MG AT BEDTIME 09/16 2200 AC 09/17 PO 2105 Tiotropium [place] 1 PUF DAILY 09/15 1000 AC 09/18 INH 0941 Assessment/Plan Assessment: Patient is a 77-year-old female with a PMH significant for CAD status post stent placement in 2007 with a repeat cardiac catheterization showing no abnormalities , COPD on 2-3 L O2 nasal cannula when necessary, 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 CXR showing hyperinflation, stable cardiomegaly with no opacifications Signs on admission: T 98.4, P1 10, RR 24, 158/82, pulse ox 89% on room air ( increased to 95% on 2 L O2). Labs: Mild leukocytosis WBC 12, granulocytes 94.3%, BUN 22, troponin 0.03, 0.04 Problem list #Acute on chronic respiratory failure #COPD exacerbation #Chronic medical problems #Elevated Pro BNP #Nicotine Dependance. Plan -Continue on general medicine -TRC/nebs -IV Solu-Medrol 40 mg every Q 8 hours. -IV azithromycin, for anti inflamatory properties, day four. -Continue Ceftin 250 mg BID (day 2) -Guaifenesin -Right neck cellulitis, no need to continue antibiotic therapy -Follow-up rapid flu test -ACS ruled out with negative troponins and EKGs 2. - May consider Repeat Echocardiogram, last one on 03/27/2017, showed Stage one diastolic dysfunction. -Smoking cessation counselling. -Continue home medications Diet: Heart healthy DVT prophylaxis: Lovenox, Alps CODE STATUS: DNR/DNI Problem List: 1. COPD exacerbation Pain Ratin Pain Location: No Pain Pain Goal: Remain pain free Pain Plan: Tylenol Prn Tomorrow's Labs & Rationales: CBC BEP BEP
[2017-09-18 15:18] VITALS: BP 120/60
--- NOTE | 2017-09-18 17:21 | PN- Pulmonary ---
Subjective HPI/Critical Care Issues: Patient seen and examined. She continues to have significant shortness of breath on exertion. Objective Current Medications: Current Medications Sig/Mitch Start time Last Medication Dose Route Stop Time Status Admin Acetylcysteine 2 ML BID 09/18 1007 AC INH Albuterol Sulfate 3 ML EVERY 4 HRS/AWAKE 09/15 0800 AC 09/18 INH 1600 Azithromycin 250 MG DAILY 09/16 1000 AC / PO 0940 Budesonide/ 2 PUF BID 09/14 2200 AC 09/18 Formoterol Fumarate INH 0942 Cefuroxime Sodium 250 MG Q12 09/17 1316 AC 09/18 PO 0941 Clopidogrel Bisulfate 75 MG DAILY 09/15 1000 AC 09/18 PO 0940 Docusate Sodium 100 MG DAILY 09/16 2020 AC 09/18 PO 0940 Enoxaparin Sodium 40 MG DAILY 09/15 1000 AC 09/18 SC 0958 Ezetimibe 10 MG DAILY 09/15 1000 AC 09/18 PO 0940 Guaifenesin 600 MG Q12 09/15 1000 AC 09/18 PO 0940 Methylprednisolone 40 MG Q8H 09/18 1800 AC IV Methylprednisolone 40 MG DAILY 09/17 1000 DC 09/18 IV 0941 Nicotine 7 MG DAILY 09/14 2046 AC 09/18 TOP 0941 Senna 187 MG AT BEDTIME 09/16 2200 AC 09/17 PO 2105 Tiotropium [place] 1 PUF DAILY 09/15 1000 AC 09/18 INH 0941 Vital Signs & I&O Last 24 Hrs of Vitals and I&O: Vital Signs Date Time Temp Pulse Resp B/P B/P Pulse O2 O2 Flow FiO2 Mean Ox Delivery Rate 09/18 1600 96 Nasal 3.0L Cannula 09/18 1559 Nasal 3.0L Cannula 09/18 1518 97.4 105 22 120/60 97 09/18 0852 96 Nasal 3.0L Cannula 09/18 0800 Nasal 3.0L Cannula 09/18 0635 97.8 82 20 132/86 98 Nasal 2.0L Cannula 09/18 0000 Nasal 2.0L Cannula 09/17 2239 97.8 92 20 116/54 97 Nasal 2.0L Cannula Intake & Output 09/18 1600 09/18 0800 04/ 0000 Intake Total 680 360 800 Output Total 200 300 Balance 480 360 500 Intake, Oral 680 360 800 Number 1 Bowel Movements Output, Urine 200 300 Exam Other Physical Findings: Patient is alert and oriented bilateral rhonchi present heart exam is unchanged she has no leg edema Impression/Plan Impression/Plan Impression/Plan: Impression 77 year old woman * acute exacerbation of COPD Plan -solumedrol change to 40mg iv q8h -add mucomyst nebulized bid -trc/nebs DVT prophylaxis at all times
--- NOTE | 2017-09-18 19:18 | PN- Cardiology ---
Subjective Subjective: Still having breathing difficulties. Objective Vital Signs and I&Os Vital Signs Date Time Temp Pulse Resp B/P B/P Pulse O2 O2 Flow FiO2 Mean Ox Delivery Rate 09/18 1600 96 Nasal 3.0L Cannula 09/18 1559 Nasal 3.0L Cannula 09/18 1518 97.4 105 22 120/60 97 09/18 0852 96 Nasal 3.0L Cannula 09/18 0800 Nasal 3.0L Cannula 09/18 0635 97.8 82 20 132/86 98 Nasal 2.0L Cannula 09/18 0000 Nasal 2.0L Cannula 09/17 2239 97.8 92 20 116/54 97 Nasal 2.0L Cannula Intake & Output 09/18 1600 09/18 0809/18 0000 09/17 1600 09/17 0000 Intake Total 680 426 909 6961 800 Output Total 200 300 600 250 Balance 480 360 500 480 550 Intake, Oral 680 679 436 5966 800 Number 1 1 Bowel Movements Output, Urine 200 300 600 250 Physical Exam: Well-developed, well-nourished elderly female in no acute distress with nasal oxygen in place. Signs: See above. Neck: No JVD, no bruits. Lungs: Decreased breath sounds bilaterally. Heart: S1, S2 no murmur, gallop, or rub. Abdomen: Soft, nontender, positive bowel sounds. Extremities: No edema. Current Medications: Current Medications Sig/Mitch Start time Last Medication Dose Route Stop Time Status Admin Acetylcysteine 2 ML BID 09/18 1007 AC INH Albuterol Sulfate 3 ML EVERY 4 HRS/AWAKE 09/15 0800 AC 09/18 INH 1600 Azithromycin 250 MG DAILY 09/16 1000 AC 09/18 PO 0940 Budesonide/ 2 PUF BID 09/14 2200 AC 09/18 Formoterol Fumarate INH 0942 Cefuroxime Sodium 250 MG Q12 09/17 1316 AC 09/18 PO 0941 Clopidogrel Bisulfate 75 MG DAILY 09/15 1000 AC 09/18 PO 0940 Docusate Sodium 100 MG DAILY 09/16 2020 AC 09/18 PO 0940 Enoxaparin Sodium 40 MG DAILY 09/15 1000 AC 09/18 SC 0958 Ezetimibe 10 MG DAILY 09/15 1000 AC 09/18 PO 0940 Guaifenesin 600 MG Q12 09/15 1000 AC 09/18 PO 0940 Methylprednisolone 40 MG Q8H 09/18 1800 AC 09/18 IV 1721 Methylprednisolone 40 MG DAILY 09/17 1000 DC 09/18 IV 0941 Nicotine 7 MG DAILY 09/14 2046 AC 09/18 TOP 0941 Senna 187 MG AT BEDTIME 09/16 2200 AC 09/17 PO 2105 Tiotropium [place] 1 PUF DAILY 09/15 1000 AC 09/18 INH 0941 Assessment/Plan Assessment/Plan Mrs. Cassidy is an elderly white female with a long-standing history of tobacco use and COPD with previous acute exacerbations who presented with similar symptoms to previous exacerbations, as well as, known coronary artery disease for which she previously had PCI/stenting and a more recent cardiac catheterization that revealed no significant epicardial coronary obstruction. She has also had no acute electrocardiographic changes or bump in her troponin I. Her presentation remains most consistent with an acute exacerbation of her COPD. Continued follow-up on recommendations from pulmonary medicine i.e., O2/TRC/ nebulizer treatments/IV steroids, etc. Continue DVT prophylaxis. Continue telemetry? Not applicable
[2017-09-18 22:19] VITALS: BP 134/86
--- NOTE | 2017-09-19 07:14 | PN- Housestaff ---
See Addendum Subjective Follow-up For: COPD Exacerbation Subjective: MS Cassidy was seen and examined this morning. Resting comfortably on the chair beside the bed. Denies any issues overnight. States that she feels remarkably better owing to the fact that she received IV steroids as well as Mucomyst. Denies any dyspnea and dyspnea on exertion. Denies any cough or sputum production. Denies fever, chills, nausea, vomiting. Endorses abdominal fullness. Review of Systems Constitutional: Reports: see HPI. Objective Last 24 Hrs of Vital Signs/I&O Vital Signs Date Time Temp Pulse Resp B/P B/P Pulse O2 O2 Flow FiO2 Mean Ox Delivery Rate 09/19 0853 98 Nasal 3.0L Cannula 09/19 08 Nasal 3.0L Cannula 09/19 0000 94 Nasal 3.0L Cannula 09/18 2219 97.7 100 20 134/86 96 09/18 1600 96 Nasal 3.0L Cannula 09/18 1559 Nasal 3.0L Cannula 09/18 1518 97.4 105 22 120/60 97 Intake & Output 09/19 1600 09/19 0800 09/19 0000 Intake Total 400 800 Output Total 200 100 600 Balance -200 300 200 Intake, Oral 400 800 Output, Urine 200 100 600 Patient 52.617 kg Weight Physical Exam General Appearance: Alert, Oriented X3, Cooperative Cardiovascular: Normal S1, Normal S2 Lungs: Improved air entry. Diminished breath sounds Abdomen: Normal Bowel Sounds, Soft, No Tenderness Neurological: Normal Gait, Normal Speech Extremities: No Clubbing, No Cyanosis, No Edema Current Medications: Current Medications Sig/Mitch Start time Last Medication Dose Route Stop Time Status Admin Acetylcysteine 2 ML BID 09/18 1007 AC 09/19 INH 0838 Albuterol Sulfate 3 ML EVERY 4 HRS/AWAKE 09/15 0800 AC 09/19 INH 1150 Azithromycin 250 MG DAILY 09/16 1000 AC 09/19 PO 0946 Bisacodyl 10 MG ONCE PRN 09/19 0830 AC ME 09/19 1800 Budesonide/ 2 PUF BID 09/14 2200 AC 09/19 Formoterol Fumarate INH 0943 Cefuroxime Sodium 250 MG Q12 09/17 1316 AC 09/19 PO 0946 Clopidogrel Bisulfate 75 MG DAILY 09/15 1000 AC 09/19 PO 0946 Docusate Sodium 100 MG DAILY 09/16 2020 AC 09/19 PO 0946 Enoxaparin Sodium 40 MG DAILY 09/15 1000 AC 09/19 SC 0945 Ezetimibe 10 MG DAILY 09/15 1000 AC 09/19 PO 0946 Guaifenesin 600 MG Q12 09/15 1000 AC 09/19 PO 0946 Methylprednisolone 40 MG Q8H 09/18 1800 AC 09/19 IV 0945 Nicotine 7 MG DAILY 09/14 204 AC 09/19 TOP 0946 Polyethylene Glycol 17 GM DAILY PRN 09/19 0830 AC PO Senna 187 MG AT BEDTIME 09/16 2200 AC 09/17 PO 2105 Tiotropium [place] 1 PUF DAILY 09/15 1000 AC 09/19 INH 0943 Last 24 Hrs of Lab/Devin Results Last 24 Hrs of Labs/Mics: Laboratory Tests 09/19/17 0720: Anion Gap 10, Estimated GFR > 60, BUN/Creatinine Ratio 42.5 H, CBC w Diff NO MAN DIFF REQ, RBC 4.78, MCV 82.2, MCH 27.3, MCHC 33.2, RDW 16.8 H, MPV 7.8, Gran % 93.7 H, Lymphocytes % 5.7 L, Monocytes % 0.5 L, Eosinophils % 0, Basophils % 0.1, Absolute Granulocytes 9.3 H, Absolute Lymphocytes 0.6 L, Absolute Monocytes 0.1, Absolute Eosinophils 0, Absolute Basophils 0 Assessment/Plan Assessment: Patient is a 77-year-old female with a PMH significant for CAD status post stent placement in 2007 with a repeat cardiac catheterization showing no abnormalities , COPD on 2-3 L O2 nasal cannula when necessary, 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 CXR showing hyperinflation, stable cardiomegaly with no opacifications Signs on admission: T 98.4, P1 10, RR 24, 158/82, pulse ox 89% on room air ( increased to 95% on 2 L O2). Labs: Mild leukocytosis WBC 12, granulocytes 94.3%, BUN 22, troponin 0.03, 0.04 Problem list #Acute on chronic respiratory failure #COPD exacerbation #Chronic medical problems #Elevated Pro BNP #Nicotine Dependance. #Hyperkalemia on lab draw Plan -Continue on general medicine -TRC/nebs -IV Solu-Medrol 40 mg every Q 8 hours. WIll consider Taper 09/20/2017 -IV azithromycin, for anti inflamatory properties, day four. -Continue Ceftin 250 mg BID (day 3) -Guaifenesin -Right neck cellulitis, no need to continue antibiotic therapy -Follow-up rapid flu test -ACS ruled out with negative troponins and EKGs 2. - May consider Repeat Echocardiogram, last one on 03/27/2017, showed Stage one diastolic dysfunction. -Smoking cessation counselling. -Repeat K, if still elevated may consider pharmacologic intervention -Continue home medications Diet: Heart healthy DVT prophylaxis: Lovenox, Alps CODE STATUS: DNR/DNI Problem List: 1. COPD exacerbation Pain Ratin Pain Location: No Pain Pain Goal: Remain pain free Pain Plan: Tylenol PRN Tomorrow's Labs & Rationales: Consider BEP: to monitor K is conitnues to be elevated.
[2017-09-19 08:26] LABS: ABSOLUTE BASOPHIL COUNT 0 /CUMM (0.0-0.2); ABSOLUTE EOSINOPHIL COUNT 0 /CUMM (0.0-0.7); ABSOLUTE GRANULOCYTE CT 9.3 /CUMM (1.4-6.5); ABSOLUTE LYMPH COUNT 0.6 /CUMM (1.2-3.4); ABSOLUTE MONOCYTE COUNT 0.1 /CUMM (0.10-0.60); BASOPHIL % 0.1 % (0.0-2.0); EOSINOPHIL % 0 % (0-5); HEMATOCRIT 39.3 % (37-47); MEAN CORPUSCULAR HGB 27.3 PG (27.0-31.0); MEAN CORPUSCULAR HGB CONC 33.2 G/DL (33.0-37.0); MEAN CORPUSCULAR VOLUME 82.2 FL (81.0-99.0); MEAN PLATELET VOLUME 7.8 FL (7.4-10.4); PLATELET COUNT 276 /CUMM (130-400); RBC DISTRIBUTION WIDTH 16.8 % (11.5-14.5); RED BLOOD CELL CT 4.78 /CUMM (4.20-5.40); WHITE BLOOD CELL COUNT 9.9 /CUMM (4.8-10.8)
[2017-09-19 08:59] LABS: GRANULOCYTE % 93.7 % (42.2-75.2)
[2017-09-19 13:24] VITALS: BP 140/60
--- NOTE | 2017-09-19 13:57 | PN- Pulmonary ---
Subjective HPI/Critical Care Issues: pt seen and examined feeling better Objective Current Medications: Current Medications Sig/Mitch Start time Last Medication Dose Route Stop Time Status Admin Acetylcysteine 2 ML BID 09/18 1007 AC 09/19 INH 0838 Albuterol Sulfate 3 ML EVERY 4 HRS/AWAKE 09/15 0800 AC 09/19 INH 1150 Azithromycin 250 MG DAILY 09/16 1000 AC 09/19 PO 0946 Bisacodyl 10 MG ONCE PRN 09/19 0830 AC [place] 09/19 1800 Budesonide/ 2 PUF BID 09/14 2200 AC 09/19 Formoterol Fumarate INH 0943 Cefuroxime Sodium 250 MG Q12 09/17 1316 AC 09/19 PO 0946 Clopidogrel Bisulfate 75 MG DAILY 09/15 1000 AC 09/19 PO 0946 Docusate Sodium 100 MG DAILY 09/16 2020 AC 09/19 PO 0946 Enoxaparin Sodium 40 MG DAILY 09/15 1000 AC 09/19 SC 0945 Ezetimibe 10 MG DAILY 09/15 1000 AC 09/19 PO 0946 Guaifenesin 600 MG Q12 09/15 1000 AC 09/19 PO 0946 Methylprednisolone 40 MG Q8H 09/18 1800 AC 09/19 IV 0945 Nicotine 7 MG DAILY 09/14 2046 AC 09/19 TOP 0946 Polyethylene Glycol 17 GM DAILY PRN 09/19 0830 AC PO Senna 187 MG AT BEDTIME 09/16 2200 AC 09/17 PO 2105 Tiotropium [place] 1 PUF DAILY 09/15 1000 AC 09/19 INH 0943 Vital Signs & I&O Last 24 Hrs of Vitals and I&O: Vital Signs Date Time Temp Pulse Resp B/P B/P Pulse O2 O2 Flow FiO2 Mean Ox Delivery Rate 09/19 1324 98.3 100 18 140/60 93 Nasal 3.0L Cannula 09/19 0853 98 Nasal 3.0L Cannula 09/19 0800 Nasal 3.0L Cannula 09/19 0000 94 Nasal 3.0L Cannula 09/18 2219 97.7 100 20 134/86 96 09/18 1600 96 Nasal 3.0L Cannula 09/18 1559 Nasal 3.0L Cannula 09/18 1518 97.4 105 22 120/60 97 Intake & Output 09/19 1600 09/19 0800 09/19 0000 Intake Total 400 800 Output Total 200 100 600 Balance -200 300 200 Intake, Oral 400 800 Output, Urine 200 100 600 Patient 116 lb Weight Exam Other Physical Findings: Patient is alert and oriented bilateral rhonchi present heart exam is unchanged she has no leg edema Results Last 24 Hrs of Lab Results: Laboratory Tests 09/19/17 0720: Anion Gap 10, Estimated GFR > 60, BUN/Creatinine Ratio 42.5 H, CBC w Diff NO MAN DIFF REQ, RBC 4.78, MCV 82.2, MCH 27.3, MCHC 33.2, RDW 16.8 H, MPV 7.8, Gran % 93.7 H, Lymphocytes % 5.7 L, Monocytes % 0.5 L, Eosinophils % 0, Basophils % 0.1, Absolute Granulocytes 9.3 H, Absolute Lymphocytes 0.6 L, Absolute Monocytes 0.1, Absolute Eosinophils 0, Absolute Basophils 0 Impression/Plan Impression/Plan Impression/Plan: Impression 77 year old woman * acute exacerbation of COPD Plan -KEEP - solumedrol change to 40mg iv q8h today - taper tomorrow -mucomyst nebulized bid -trc/nebs DVT prophylaxis at all times
[2017-09-19 21:37] VITALS: BP 134/76
[2017-09-20 06:43] VITALS: BP 140/80
--- NOTE | 2017-09-20 07:23 | PN- Housestaff ---
Mark De Oliveira 09/20/17 0722: Subjective Follow-up For: COPD exacerbation Hyperkalemia Subjective: There were no acute events overnight. This morning patient states that she was able to sleep well through the night. She denies any fevers, chills, worsening shortness of breath, sore throat, nausea, vomiting, diarrhea. Review of Systems Constitutional: Reports: see HPI. EENTM: Reports: no symptoms. Cardiovascular: Reports: see HPI. Respiratory: Reports: see HPI. Gastrointestinal: Reports: no symptoms. Genitourinary: Reports: no symptoms. Musculoskeletal: Reports: no symptoms. Skin: Reports: no symptoms. Objective Last 24 Hrs of Vital Signs/I&O Vital Signs Date Time Temp Pulse Resp B/P B/P Pulse O2 O2 Flow FiO2 Mean Ox Delivery Rate 09/20 0857 93 Nasal 3.0L Cannula 09/20 0800 Nasal 3.0L Cannula 09/20 0643 98.2 86 20 140/80 96 Nasal 2.0L Cannula 09/20 0000 95 Nasal 3.0L Cannula 09/19 2137 98.3 98 20 134/76 97 09/19 1635 98 Nasal 3.0L Cannula 09/19 1554 Nasal 3.0L Cannula 09/19 1324 98.3 100 18 140/60 93 Nasal 3.0L Cannula Intake & Output 09/20 1600 09/20 0800 09/20 0000 Intake Total 200 800 Output Total Balance 200 800 Intake, Oral 200 800 Physical Exam General Appearance: Alert, Cooperative, No Acute Distress Skin: No Breakdown Skin Temp/Moisture Exam: Warm/Dry HEENT: Mucous Membr. moist/pink Cardiovascular: Regular Rate, Normal S1, Normal S2 Lungs: Normal Air Movement, slightly diminished breath sounds in the basilar regions bilaterally. Abdomen: Normal Bowel Sounds, Soft, No Tenderness Extremities: No Cyanosis, No Edema, Normal Pulses Vascular: Pulses Symmetrical Current Medications: Current Medications Sig/Mitch Start time Last Medication Dose Route Stop Time Status Admin Acetylcysteine 2 ML BID 09/18 1007 AC 09/20 INH 0852 Albuterol Sulfate 3 ML EVERY 4 HRS/AWAKE 09/15 0800 AC 09/20 INH 1307 Azithromycin 250 MG DAILY 09/16 1000 DC 09/19 PO 0946 Bisacodyl 10 MG ONCE PRN 09/19 0830 DC 09/19 MO 09/19 1800 1723 Budesonide/ 2 PUF BID 09/14 2200 AC 09/20 Formoterol Fumarate INH 1009 Cefuroxime Sodium 250 MG Q12 09/17 1316 AC 09/20 PO 1009 Clopidogrel Bisulfate 75 MG DAILY 09/15 1000 AC 09/20 PO 1009 Docusate Sodium 100 MG DAILY 09/16 2020 AC 09/20 PO 1009 Enoxaparin Sodium 40 MG DAILY 09/15 1000 AC 09/20 SC 1008 Ezetimibe 10 MG DAILY 09/15 1000 AC 09/20 PO 1009 Guaifenesin 600 MG Q12 09/15 1000 AC 09/20 PO 1009 Methylprednisolone 40 MG Q12 09/20 1000 AC 09/20 IV 1008 Methylprednisolone 40 MG Q8H 09/18 1800 DC 09/20 IV 0109 Nicotine 7 MG DAILY 09/14 204 AC 09/20 TOP 1008 Patient Medication 1 ED ONE ONE 09/19 1415 DC 09/19 Teaching ED 09/19 1416 1629 Polyethylene Glycol 17 GM DAILY PRN 09/19 0830 AC PO Senna 187 MG AT BEDTIME 09/16 2200 AC 09/17 PO 2105 Tiotropium [place] 1 PUF DAILY 09/15 1000 AC 09/20 INH 1009 Last 24 Hrs of Lab/Devin Results Last 24 Hrs of Labs/Mics: Laboratory Tests 09/20/17 0734: Anion Gap 11, Estimated GFR > 60, BUN/Creatinine Ratio 52.5 H, Phosphorus 4.1, Magnesium 2.1 09/19/17 1445: Assessment/Plan Assessment: 77-year-old lady with a PMH of CAD s/p stenting (2007), follow-up cardiac catheterization with no significant stenosis, COPD on supplemental O2 at home with 2 to 3L when necessary, for which she underwent chemotherapy, thoracic aortic aneurysm who presented to [facility] with complaints of worsening shortness of breath, productive cough with yellow sputum. CXR showed hyperinflation with stable cardiomegaly. VS on admission: BP 150/82, HR 110, RR 24, SPO2 89% on RA increase to 95% on 2L, T 98.4 Pertinent labs: Leukocytosis 12,000, 94.3% granulocytes, BUN 22 Serial troponins: 0.03, 0.04 Patient was admitted for the following problems 1. Acute on chronic respiratory failure 2. COPD exacerbation 3. Elevated proBNP 4. Hyperkalemia 5. Tobacco dependence Plan: * Interval improvement from a respiratory status with saturations maintaining above 92% while on 2L. We'll decrease Solu-Medrol from Q8 to Q12. Magnesium and phosphorus are WNL. Continue with Ceftin 250 mg Q12 for now (day #4) * Continue Mucomyst for another 24 hours and guaifenesin as needed * Rapid influenza, Legionella and strep antigen is negative * Continue with nicotine patch as needed Problem List: 1. COPD exacerbation 2. Hyperkalemia Pain Ratin Pain Location: NA Pain Goal: Pain 4 or less Pain Plan: Pain pathway Tomorrow's Labs & Rationales: BEP: follow hyperkalemia DVT/Prophylaxis: pharmacological Discharge Plan Discharge Disposition: home Stable for Discharge? No Anticipated Discharge (Day): tomorrow Nilson Bonilla MD 09/20/17 4352: Attending MD Review Statement Attending Statement Attending MD Statement: examined this patient, discuss w/resident/PA/EVENT TECHNICIAN, agreed w/resident/PA/EVENT TECHNICIAN, reviewed EMR data (avail), discussed with nursing, discussed with case mgmt, amended to note Attending Assessment/Plan: The patient was seen and discussed with house staff. Appreciate pulmonary follow -up. Will decrease solumedrol to q12h. Slight improvement in air movement. Patient states still with exertional dyspnea, however slowly improving. Will most likely need portable oxygen at home.
--- NOTE | 2017-09-20 11:20 | PN- Pulmonary ---
Subjective HPI/Critical Care Issues: pt seen and examined feeling better overall Objective Current Medications: Current Medications Sig/Mitch Start time Last Medication Dose Route Stop Time Status Admin Acetylcysteine 2 ML BID 09/18 1007 AC 09/20 INH 0852 Albuterol Sulfate 3 ML EVERY 4 HRS/AWAKE 09/15 0800 AC 09/20 INH 0851 Azithromycin 250 MG DAILY 09/16 1000 DC 09/19 PO 0946 Bisacodyl 10 MG ONCE PRN 09/19 0830 DC 09/19 [place] 09/19 1800 1723 Budesonide/ 2 PUF BID 09/14 2200 AC 09/20 Formoterol Fumarate INH 1009 Cefuroxime Sodium 250 MG Q12 09/17 1316 AC 09/20 PO 1009 Clopidogrel Bisulfate 75 MG DAILY 09/15 1000 AC 09/20 PO 1009 Docusate Sodium 100 MG DAILY 09/16 2020 AC 09/20 PO 1009 Enoxaparin Sodium 40 MG DAILY 09/15 1000 AC 09/20 SC 1008 Ezetimibe 10 MG DAILY 09/15 1000 AC 09/20 PO 1009 Guaifenesin 600 MG Q12 09/15 1000 AC 09/20 PO 1009 Methylprednisolone 40 MG Q12 09/20 1000 AC 09/20 IV 1008 Methylprednisolone 40 MG Q8H 09/18 1800 DC 09/20 IV 0109 Nicotine 7 MG DAILY 09/14 2046 AC 09/20 TOP 1008 Patient Medication 1 ED ONE ONE 09/19 1415 DC 09/19 Teaching ED 09/19 1416 1629 Polyethylene Glycol 17 GM DAILY PRN 09/19 0830 AC PO Senna 187 MG AT BEDTIME 09/16 2200 AC 09/17 PO 2105 Tiotropium [place] 1 PUF DAILY 09/15 1000 AC 09/20 INH 1009 Vital Signs & I&O Last 24 Hrs of Vitals and I&O: Vital Signs Date Time Temp Pulse Resp B/P B/P Pulse O2 O2 Flow FiO2 Mean Ox Delivery Rate 09/20 0857 93 Nasal 3.0L Cannula 09/20 0800 Nasal 3.0L Cannula 09/20 0643 98.2 86 20 140/80 96 Nasal 2.0L Cannula 09/20 0000 95 Nasal 3.0L Cannula 09/19 2137 98.3 98 20 134/76 97 09/19 1635 98 Nasal 3.0L Cannula 09/19 1554 Nasal 3.0L Cannula 09/19 1324 98.3 100 18 140/60 93 Nasal 3.0L Cannula Intake & Output 09/20 1600 09/20 0800 09/20 0000 Intake Total 200 800 Output Total Balance 200 800 Intake, Oral 200 800 Exam Other Physical Findings: awake alert rare rhonchi no edema some bruising from iv sites Results Last 24 Hrs of Lab Results: Laboratory Tests 09/20/17 0734: Anion Gap 11, Estimated GFR > 60, BUN/Creatinine Ratio 52.5 H, Phosphorus 4.1, Magnesium 2.1 09/19/17 1445: Impression/Plan Impression/Plan Impression/Plan: Impression 77 year old woman * acute exacerbation of COPD Plan -REDUCE - solumedrol change to 40mg iv q12h today - taper to po prednisone tomorrow if improved -mucomyst nebulized bid -trc/nebs DVT prophylaxis at all times
[2017-09-20 15:30] VITALS: BP 130/70
[2017-09-20 21:49] VITALS: BP 134/64
[2017-09-21 06:34] VITALS: BP 150/90
--- NOTE | 2017-09-21 09:09 | PN- Housestaff ---
Subjective Follow-up For: COPD exacerbation Hyperkalemia Subjective: The patient was seen and examined this morning. She offers no complaints. Denies chest pain, shortness of breath, nausea, vomiting, dizziness, lightheadedness, abdominal pain, urinary symptoms. Saturating 98% on 2 L nasal cannula oxygen. On nocturnal oxygen supplement at home. Vital signs otherwise are stable. No overnight events reported. Hyperkalemia has resolved. Review of Systems Constitutional: Reports: no symptoms. Objective Last 24 Hrs of Vital Signs/I&O Vital Signs Date Time Temp Pulse Resp B/P B/P Pulse O2 O2 Flow FiO2 Mean Ox Delivery Rate 09/21 0903 98 Nasal 2.0L Cannula 09/21 0800 Nasal 2.0L Cannula 09/21 0634 98.1 86 20 150/90 95 Nasal 2.0L Cannula 09/21 0000 Nasal 2.0L Cannula 09/20 2149 97.1 90 24 134/64 92 Room Air 09/20 1638 96 Room Air Room Air 09/20 1558 Room Air 09/20 1530 97.8 92 20 130/70 98 09/20 1430 95 Room Air Intake & Output 09/21 1600 09/21 0800 09/21 0000 Intake Total 100 900 Output Total Balance 100 900 Intake, Oral 100 900 Physical Exam General Appearance: Alert, Oriented X3, Cooperative, No Acute Distress Skin: No Rashes HEENT: Atraumatic, PERRLA, EOMI, Mucous Membr. moist/pink Neck: Supple, No JVD, No thryomegaly, +2 Carotid Pulse wo Bruit, No LAD Lymphatic: Cervical nl Lungs: Clear to Auscultation, Diminished breath sounds B/L Abdomen: Normal Bowel Sounds, Soft, No Tenderness, No Hepatospenomegaly, No Masses Neurological: Normal Speech, Normal Tone Extremities: No Clubbing, No Cyanosis, No Edema, Normal Pulses, No Tenderness/ Swelling Vascular: Normal Pulses, Pulses Symmetrical Current Medications: Current Medications Sig/Mitch Start time Last Medication Dose Route Stop Time Status Admin Acetylcysteine 2 ML BID 09/18 1007 DC 09/20 INH 0852 Albuterol Sulfate 3 ML BID 09/21 1000 AC 09/21 INH 0901 Albuterol Sulfate 3 ML EVERY 4 HRS/AWAKE 09/15 0800 DC 09/20 INH 1637 Bisacodyl 10 MG ONCE ONE 09/20 1930 DC 09/20 ID 09/20 Budesonide/ 2 PUF BID 09/14 2200 AC 09/21 Formoterol Fumarate INH 0838 Cefuroxime Sodium 250 MG Q12 09/17 1316 DC 09/21 PO 0836 Clopidogrel Bisulfate 75 MG DAILY 09/15 1000 AC 09/21 PO 0836 Docusate Sodium 100 MG DAILY 09/16 2020 AC 09/21 PO 0837 Enoxaparin Sodium 40 MG DAILY 09/15 1000 AC 09/21 SC 0839 Ezetimibe 10 MG DAILY 09/15 1000 AC 09/21 PO 0836 Guaifenesin 600 MG Q12 09/15 1000 AC 09/21 PO 0837 Methylprednisolone 40 MG Q12 09/20 1000 AC 09/21 IV 0837 Nicotine 7 MG DAILY 09/14 2046 AC 09/21 TOP 0835 Polyethylene Glycol 17 GM DAILY PRN 09/19 0830 AC PO Senna 187 MG AT BEDTIME 09/16 2200 AC 09/17 PO 2105 Tiotropium [place] 1 PUF DAILY 09/15 1000 AC 09/21 INH 0844 Last 24 Hrs of Lab/Devin Results Last 24 Hrs of Labs/Mics: Laboratory Tests 09/21/17 0735: Anion Gap 11, Estimated GFR > 60, BUN/Creatinine Ratio 45.6 H Assessment/Plan Assessment: Ms. 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 CXR revealed hyperinflation, stable cardiomegaly with no opacifications. Problem list: #Acute on chronic respiratory failure #COPD exacerbation #Elevated Pro BNP #Nicotine Dependance. #Hyperkalemia-resolved Plan: -Interval improvement from a respiratory status with saturations maintaining above 92% while on 2L. -On methylprednisolone 40 mg Q12. -Satisfactory ambulatory oxygen saturation. -Will discontinue Ceftin per pulmonary recommendation -Rapid influenza, Legionella and strep antigen is negative -Continue with nicotine patch as needed -Stable to discharge to home today on steroid taper, to follow with Dr. Torres and COPD clinic as an outpatient. Problem List: 1. COPD exacerbation Pain Ratin Pain Location: NA Pain Goal: Remain pain free Pain Plan: NA Tomorrow's Labs & Rationales: NA
[2017-09-21] MEDS ORDERED: PREDNISONE10 M2 PO ×2 (12:01→12:21)
[2017-09-21] MEDS ORDERED: NICOTINE PATCH1 EAC1 TOP (12:01)
--- NOTE | 2017-09-21 12:03 | PN- Pulmonary ---
Subjective HPI/Critical Care Issues: pt seen and examined feeling better anticipating dc home Objective Current Medications: Current Medications Sig/Mitch Start time Last Medication Dose Route Stop Time Status Admin Acetylcysteine 2 ML BID 09/18 1007 DC 09/20 INH 0852 Albuterol Sulfate 3 ML BID 09/21 1000 AC 09/21 INH 0901 Albuterol Sulfate 3 ML EVERY 4 HRS/AWAKE 09/15 0800 DC 09/20 INH 1637 Bisacodyl 10 MG ONCE ONE 09/20 1930 DC 09/20 [place] 09/20 193 2009 Budesonide/ 2 PUF BID 09/14 2200 AC 09/21 Formoterol Fumarate INH 0838 Cefuroxime Sodium 250 MG Q12 09/17 1316 DC 09/21 PO 0836 Clopidogrel Bisulfate 75 MG DAILY 09/15 1000 AC 09/21 PO 0836 Docusate Sodium 100 MG DAILY 09/16 2020 AC 09/21 PO 0837 Enoxaparin Sodium 40 MG DAILY 09/15 1000 AC 09/21 SC 0839 Ezetimibe 10 MG DAILY 09/15 1000 AC 09/21 PO 0836 Guaifenesin 600 MG Q12 09/15 1000 AC 09/21 PO 0837 Methylprednisolone 40 MG Q12 09/20 1000 DC 09/21 IV 0837 Nicotine 7 MG DAILY 09/14 2046 AC 09/21 TOP 0835 Polyethylene Glycol 17 GM DAILY PRN 09/19 0830 AC PO Senna 187 MG AT BEDTIME 09/16 2200 AC 09/17 PO 2105 Tiotropium [place] 1 PUF DAILY 09/15 1000 AC 09/21 INH 0844 Vital Signs & I&O Last 24 Hrs of Vitals and I&O: Vital Signs Date Time Temp Pulse Resp B/P B/P Pulse O2 O2 Flow FiO2 Mean Ox Delivery Rate 09/21 1113 98 Room Air 09/21 0903 98 Nasal 2.0L Cannula 09/21 0800 Nasal 2.0L Cannula 09/21 0634 98.1 86 20 150/90 95 Nasal 2.0L Cannula 09/21 0000 Nasal 2.0L Cannula 09/20 2149 97.1 90 24 134/64 92 Room Air 09/20 1638 96 Room Air Room Air 09/20 1558 Room Air 09/20 1530 97.8 92 20 130/70 98 09/20 1430 95 Room Air Intake & Output 09/21 1600 09/21 0800 09/21 0000 Intake Total 100 900 Output Total Balance 100 900 Intake, Oral 100 900 Exam Other Physical Findings: awake alert rare rhonchi no edema Results Last 24 Hrs of Lab Results: Laboratory Tests 09/21/17 0735: Anion Gap 11, Estimated GFR > 60, BUN/Creatinine Ratio 45.6 H Impression/Plan Impression/Plan Impression/Plan: Impression 77 year old woman * acute exacerbation of COPD Plan -dc solumedrol -prednisone taper by 10mg every 3 days, remain on 10mg until seen by me in office -trc/nebs DVT prophylaxis at all times DC home
[2017-09-22] MEDS ORDERED: NICOTINE PATCH1 EAC1 TOP (16:05)
== END 2017-09-21 13:10 | disposition home health service (06) | DRG 190 ==
LOC: ERH 15:47 → ERHI 18:32 → 2NA 18:32 → ENRESERV 19:09 → ENTRNSPT 20:09 → EDTRNSPTSTS 20:12 → 2NA 20:26 → CMPTRNSPT 20:38 → 2NA 09-15 07:44 → ENPENDDIS 09-21 12:16 → ENTRNSPT 09-21 12:59 → EDTRNSPTSTS 09-21 13:03 → EDTRNSPT 09-21 13:03 → 2NA 09-21 13:10 → CMPTRNSPT 09-21 13:14
PROVIDERS: Emergency Medicine; Internal Medicine; Student in an Organized Health Care Education/Training Program
DX: J44.1 Chronic obstructive pulmonary disease with (acute) exacerbation (principal); J96.21 Acute and chronic respiratory failure with hypoxia; E87.5 Hyperkalemia; K86.2 Cyst of pancreas; L03.221 Cellulitis of neck; I71.2 Thoracic aortic aneurysm, without rupture; Z99.81 Dependence on supplemental oxygen; I25.10 Atherosclerotic heart disease of native coronary artery without angina pectoris; Z95.5 Presence of coronary angioplasty implant and graft; Z85.07 Personal history of malignant neoplasm of pancreas; E78.5 Hyperlipidemia, unspecified; Z92.21 Personal history of antineoplastic chemotherapy; Z90.49 Acquired absence of other specified parts of digestive tract; H91.92 Unspecified hearing loss, left ear; Z87.442 Personal history of urinary calculi; Z79.51 Long term (current) use of inhaled steroids; Z91.14 Patient's other noncompliance with medication regimen; F17.210 Nicotine dependence, cigarettes, uncomplicated; Z66 Do not resuscitate
CPT/HCPCS: 2NASP; 36415; 36592; 71045; 82436; 87040; 87449; 87450; 87804; 87804-59; 93005; 93010; 96374; J0456; J1650; J2920; J2930; J3490; J7060; J7608